=== PATIENT | female | born 1970 | race Hispanic/Latino ===

== ENCOUNTER → 2016-09-28 | Outpatient (CLI) | payer OTHER ==
[~2016-09-28] MED LIST: /ESOM40CA OR; AMITRIPTYLINE PO; CRESTOR PO; FLEXARIL PO; IBUP80TA PO; LORATADINE PO; NAPR500T2 PO; ROBA500T PO; TRAM50TA2 OR; TYLE325T5 PO; XANAX PO; [UNRECOGNIZED DRUG - REMARK] INH; [UNRECOGNIZED DRUG - REMARK] PO
[2016-09-28 13:24] LABS: FREE T4 0.89 NG/DL (0.76-1.46)
== END ==
LOC: M LAB 12:07
PROVIDERS: ATTEND Obstetrics & Gynecology
DX: N95.8 Other specified menopausal and perimenopausal disorders (principal)

== ENCOUNTER 2016-10-05 10:27 | Emergency (ER) | payer OTHER ==
[2016-10-05] MEDS ORDERED: ALBUTEROL SULFATE 2.5 MG/0.5 ML INH NEB SOLN As Ordered ONE (11:15)
--- NOTE | 2016-10-05 12:04 | REP ---
Chest two views HISTORY: Cough Comparison: 08/06/2016 The lungs are clear. The heart is normal in size. The pulmonary vasculature is normal in appearance. The bony structure is intact. IMPRESSION: No acute disease. Signed by Waylon Arteaga MD 10/05/2016 11:56 A
[2016-10-05] MEDS ORDERED: ALBUTEROL 90 MCG/ACT 8GM HFA INHALER As Ordered ONE (12:08)
--- NOTE | 2016-10-05 12:18 | EDDOCDS ---
Physician Documentation [facility] Name: Angélica Queen Age: 46 yrs Sex: Female : 1970 Arrival Date: 10/05/2016 Time: 10:27 Bed PR Private MD: Karen Feliciano M. Disposition: 10/05/16 12:07 Discharged to Home/Self Care. Impression: Unspecified asthma with (acute) exacerbation, Cough. - Condition is Stable. - Discharge Instructions: Asthma, Adult, Cough, Adult, [id number]. - Prescriptions for Prednisone 20 mg Oral Tablet - take 2 tablet by ORAL route once daily for 5 days; 10 tablet. Albuterol Sulfate 90 mcg/actuation Inhalation HFA Aerosol Inhaler - inhale 2 puff by INHALATION route every 4 hours As needed; 1 Inhaler. - Medication Reconciliation, Local Pharmacy Hours form. - Follow up: Emergency Department; When: As needed; Reason: Worsening of conditions. Follow up: Private Physician; When: 2 - 3 days; Reason: Wound/Symptom Recheck, Recheck today's complaints, Continuance of care. - Problem is new. - Symptoms have improved. Historical: - Allergies: Clindamycin (Rash); Erythromycin (Rash); PENICILLINS (Rash); - Home Meds: 1. Ventolin Rotahaler/Rotacaps 200 mcg Inhl CpDv 200 mcg daily ran out 2. Claritin 10 mg Oral tab 1 tab once daily hasnt taken in 2 months - PMHx: Asthma; Chronic Back pain; Chronic Neck Pain; - PSHx: Hysterectomy; left breast biopsy; - Social history: Smoking status: Patient uses tobacco products, current every day smoker. No barriers to communication noted, The patient speaks fluent Belgian, Speaks appropriately for age. - Family history: Not pertinent. - : The pt / caregiver states he / she is not on anticoagulants. Home medication list is obtained from the patient. - Exposure Risk Screening:: None identified. 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 0 in. (152.40 cm) (R); Pain 0/10; 12:10 BP 117 / 76; Pulse 88; Resp 18; Temp 97.0(O); Pulse Ox 97% on R/A; Pain 0/10; jb5 10:28 Body Mass Index 30.47 (70.76 kg, 152.40 cm) ct3 MDM: 11:01 Albuterol 2.5 mg Nebulizer once ordered. dt4 11:01 Call Respiratory ordered. dt4 11:02 Chest, 2 View (pa\E\lat) Ordered. EDMS 11:08 Call Respiratory complete. jf3 11:47 Financial registration complete. mm15 11:49 [facility] Payment Agreement was scanned into [employer] and attached to record. mm15 12:02 Ventolin Inhaler 2 puffs Inhalation once; GIVE TO PT TO TAKE HOME, THANK YOU. ordered. dt4 Administered Medications: 11:21 Drug: Albuterol 2.5 mg [albuterol sulfate 2.5 mg/0.5 mL solution for nebulization (0.5 cs15 mL)] Route: Nebulizer; 11:30 Follow up: Response: Nebulizer completed cs15 12:14 Drug: Ventolin 2 puffs [Ventolin HFA 90 mcg/actuation aerosol inhaler (2 puffs)] Route: dy Inhalation; Signatures: Dispatcher [employer] Annie Combs, RN Rhys Miramontes RN RN dy McGrath, Marlynn mm15 Wendy Santos, PAEllieC PA-C dt4 Alessandro Sheth RN RN jf3 Quan Montilla RT cs15 The chart was reviewed and I authenticate all verbal orders and agree with the evaluation and treatment provided.Attachments: 11:49 [facility] Payment Agreement mm15 MTDD
--- NOTE | 2016-10-05 12:18 | EDDOCDS ---
Nurse's Notes [facility] Name: Angélica Queen Age: 46 yrs Sex: Female : 1970 Arrival Date: 10/05/2016 Time: 10:27 Bed PR Private MD: Karen Feliciano M. Diagnosis: Unspecified asthma with (acute) exacerbation;Cough Presentation: 10/05 10:34 Presenting complaint: Patient states: coughing and difficulty breathing for 3-4 days. srm hx of asthma. Adult Sepsis Screening: The patient does not have new or worsening altered mentation. Patient's respiratory rate is less than 22. Systolic blood pressure is greater than 100. Patient has a qSOFA score of 0- Negative Sepsis Screen. Suicide/Homicide risk assessment- the patient denies having any suicidal and/or homicidal ideations and does not present with any other emotional, behavioral or mental health complaints. 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 Transition of care: patient was not received from another setting of care. 10:34 Acuity: ILANA Level 4 srm 10:34 Method Of Arrival: Wheelchair srm Triage Assessment: 10:35 General: Appears in no apparent distress, Behavior is appropriate for age, cooperative. srm Pain: Denies pain. HIV screening NA for this visit Offered previously. 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 Ventolin Rotahaler/Rotacaps 200 mcg Inhl CpDv 200 mcg daily ran out 2. Claritin 10 mg Oral tab 1 tab once daily hasnt taken in 2 months - PMHx: Asthma; Chronic Back pain; Chronic Neck Pain; - PSHx: Hysterectomy; left breast biopsy; - Social history: Smoking status: Patient uses tobacco products, current every day smoker. No barriers to communication noted, The patient speaks fluent Paraguayan, Speaks appropriately for age. - Family history: Not pertinent. - : The pt / caregiver states he / she is not on anticoagulants. Home medication list is obtained from the patient. - Exposure Risk Screening:: None identified. Screenin:14 Screening information is obtained from the patient. Fall risk: No risks identified. dy Assistance ADL's: requires no assistance with activities of daily living. Abuse/DV Screen: The patient / caregiver reports he/she is: not in a situation that causes fear, pain or injury. Nutritional screening: No deficits noted. Advance Directives: There is no active DNR order. home support is adequate. Assessment: 12:15 General: Appears in no apparent distress, Behavior is appropriate for age, cooperative. dy Pain: Denies pain. Respiratory: Airway is patent Respiratory effort is even, unlabored, Breath sounds are clear bilaterally. Derm: Skin is pink, warm & dry. Vital Signs: 10:28 BP 152 / 91; Pulse 102; Resp 18; Temp 97.7(O); Pulse Ox 98% on R/A; Weight 70.76 kg ct3 (R); Height 5 ft. 0 in. (152.40 cm) (R); Pain 0/10; 12:10 BP 117 / 76; Pulse 88; Resp 18; Temp 97.0(O); Pulse Ox 97% on R/A; Pain 0/10; jb5 10:28 Body Mass Index 30.47 (70.76 kg, 152.40 cm) ct3 Vitals: 10:28 Log In Time: October 05, 2016 at 10:25. ct3 ED Course: 10:28 Patient visited by Emelina Jones PCA. ct3 10:28 Karen Feliciano is Private Physician. ct3 10:28 Patient moved to Waiting ct3 10:30 Patient moved to Pre RCE ct3 10:34 Triage Initiated srm 10:37 Patient moved to Triage 3 srm 10:57 Wendy Santos [facility]-C [facility]. dt4 10:57 Em Griffith MD is Attending Physician. dt4 10:57 Patient visited by Wendy Santos PA-C. dt4 11:06 Patient moved to PR2 / 26 jf3 11:07 Patient moved to PR1 / 25 jf3 11:47 Patient visited by Salima Cabezas PCA. jb5 11:49 [facility] [place] Agreement was scanned into [employer] and attached to record. mm15 12:10 Patient visited by Salima Cabezas PCA. jb5 12:10 Patient visited by Salima Cabezas PCA. jb5 12:11 Chest, 2 View (pa\E\lat) Returned. EDMS 12:15 The patient / caregiver is instructed regarding the plan of care and ED course. Patient dy has correct armband on for positive identification. 12:15 No IV's were initiated during this patient's visit. No procedures done that require dy assistance. Administered Medications: 11:21 Drug: Albuterol 2.5 mg [albuterol sulfate 2.5 mg/0.5 mL solution for nebulization (0.5 cs15 mL)] Route: Nebulizer; 11:30 Follow up: Response: Nebulizer completed cs15 12:14 Drug: Ventolin 2 puffs [Ventolin HFA 90 mcg/actuation aerosol inhaler (2 puffs)] Route: dy Inhalation; RT: 11:21 Initial Med Neb Given as ordered. Respiratory: Respiratory effort is unlabored, cs15 Respiratory pattern is regular Breath sounds are diminished bilaterally. Reports That she ran out of her ventolin this morning but got a dose which helped minimally. She also stated that her SOB has been going on for a few days now and it started when she started choking on some food. 11:31 Respiratory: cs15 Order Results: Radiology Order: Chest, 2 View (pa\E\lat) Test: Chest, 2 View (pa\E\lat) REASON FOR EXAMINATION: Cough;Shortness of Breath; Chest two views; ; HISTORY: Cough; ; Comparison: 08/06/2016; ; The lungs are clear. The heart is normal in size. The pulmonary vasculature is; normal in appearance. The bony structure is intact.; ; IMPRESSION: No acute disease.; ; ; Signed by; Waylon Arteaga MD 10/05/2016 11:56 A; Outcome: 12:07 Discharge ordered by Provider. dt4 12:15 Discharge Assessment: patient administered narcotics - no. The following High Risk dy Discharge criteria are identified: None. Discharged to home ambulatory. Condition: stable. Discharge instructions given to patient, Instructed on discharge instructions, follow up and referral plans. medication usage, Demonstrated understanding of instructions, medications, Pt was receptive of discharge instructions/ teaching. Prescriptions given X 2. No special radiology studies were completed. Property sent home with patient. 12:17 Patient left the ED. dy Signatures: Dispatcher [employer] EDMS Annie Lacy RN RN srm Youngs, David, RN RN dy Baker, Janet, BULKING MACHINE OPERATOR BULKING MACHINE OPERATOR jb5 Emelina Jones, BULKING MACHINE OPERATOR BULKING MACHINE OPERATOR ct3 Tereso Marinelli mm15 Wendy Santos, ANA MARÍA PA-C dt4 Quan Montilla,RT RT cs15 Alessandro Sheth,RN RN jf3 MTDD
--- NOTE | 2016-10-07 13:18 | EDDOCDS ---
Nurse's Notes [facility] Name: Angélica Queen Age: 46 yrs Sex: Female : 1970 Arrival Date: 10/05/2016 Time: 10:27 Bed PR Private MD: Karen Feliciano M. Diagnosis: Unspecified asthma with (acute) exacerbation;Cough Presentation: 10/05 10:34 Presenting complaint: Patient states: coughing and difficulty breathing for 3-4 days. srm hx of asthma. Adult Sepsis Screening: The patient does not have new or worsening altered mentation. Patient's respiratory rate is less than 22. Systolic blood pressure is greater than 100. Patient has a qSOFA score of 0- Negative Sepsis Screen. Suicide/Homicide risk assessment- the patient denies having any suicidal and/or homicidal ideations and does not present with any other emotional, behavioral or mental health complaints. 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 Transition of care: patient was not received from another setting of care. 10:34 Acuity: ILANA Level 4 srm 10:34 Method Of Arrival: Wheelchair srm Triage Assessment: 10:35 General: Appears in no apparent distress, Behavior is appropriate for age, cooperative. srm Pain: Denies pain. HIV screening NA for this visit Offered previously. 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 Ventolin Rotahaler/Rotacaps 200 mcg Inhl CpDv 200 mcg daily ran out 2. Claritin 10 mg Oral tab 1 tab once daily hasnt taken in 2 months - PMHx: Asthma; Chronic Back pain; Chronic Neck Pain; - PSHx: Hysterectomy; left breast biopsy; - Social history: Smoking status: Patient uses tobacco products, current every day smoker. No barriers to communication noted, The patient speaks fluent Taiwanese, Speaks appropriately for age. - Family history: Not pertinent. - : The pt / caregiver states he / she is not on anticoagulants. Home medication list is obtained from the patient. - Exposure Risk Screening:: None identified. Screenin:14 Screening information is obtained from the patient. Fall risk: No risks identified. dy Assistance ADL's: requires no assistance with activities of daily living. Abuse/DV Screen: The patient / caregiver reports he/she is: not in a situation that causes fear, pain or injury. Nutritional screening: No deficits noted. Advance Directives: There is no active DNR order. home support is adequate. Assessment: 12:15 General: Appears in no apparent distress, Behavior is appropriate for age, cooperative. dy Pain: Denies pain. Respiratory: Airway is patent Respiratory effort is even, unlabored, Breath sounds are clear bilaterally. Derm: Skin is pink, warm & dry. Vital Signs: 10:28 BP 152 / 91; Pulse 102; Resp 18; Temp 97.7(O); Pulse Ox 98% on R/A; Weight 70.76 kg ct3 (R); Height 5 ft. 0 in. (152.40 cm) (R); Pain 0/10; 12:10 BP 117 / 76; Pulse 88; Resp 18; Temp 97.0(O); Pulse Ox 97% on R/A; Pain 0/10; jb5 10:28 Body Mass Index 30.47 (70.76 kg, 152.40 cm) ct3 Vitals: 10:28 Log In Time: October 05, 2016 at 10:25. ct3 ED Course: 10:28 Patient visited by Emelina Jones PCA. ct3 10:28 Karen Feliciano is Private Physician. ct3 10:28 Patient moved to Waiting ct3 10:30 Patient moved to Pre RCE ct3 10:34 Triage Initiated srm 10:37 Patient moved to Triage 3 srm 10:57 Wendy Santos [facility]-C [facility]. dt4 10:57 Em Griffith MD is Attending Physician. dt4 10:57 Patient visited by Wendy Santos PA-C. dt4 11:06 Patient moved to PR2 / 26 jf3 11:07 Patient moved to PR1 / 25 jf3 11:47 Patient visited by Salima Cabezas PCA. jb5 11:49 [facility] Payment Agreement was scanned into [employer] and attached to record. mm15 12:10 Patient visited by Salima Cabezas PCA. jb5 12:10 Patient visited by Salima Cabezas PCA. jb5 12:11 Chest, 2 View (pa\E\lat) Returned. EDMS 12:15 The patient / caregiver is instructed regarding the plan of care and ED course. Patient dy has correct armband on for positive identification. 12:15 No IV's were initiated during this patient's visit. No procedures done that require dy assistance. 14:13 T-Sheet-- Draft Copy was scanned into [employer] and attached to record. gb 10/06 20:26 T-Sheet-- Draft Copy was scanned into [employer] and attached to record. klr Administered Medications: 10/05 11:21 Drug: Albuterol 2.5 mg [albuterol sulfate 2.5 mg/0.5 mL solution for nebulization (0.5 cs15 mL)] Route: Nebulizer; 11:30 Follow up: Response: Nebulizer completed cs15 12:14 Drug: Ventolin 2 puffs [Ventolin HFA 90 mcg/actuation aerosol inhaler (2 puffs)] Route: dy Inhalation; RT: 11:21 Initial Med Neb Given as ordered. Respiratory: Respiratory effort is unlabored, cs15 Respiratory pattern is regular Breath sounds are diminished bilaterally. Reports That she ran out of her ventolin this morning but got a dose which helped minimally. She also stated that her SOB has been going on for a few days now and it started when she started choking on some food. 11:31 Respiratory: cs15 Order Results: Radiology Order: Chest, 2 View (pa\E\lat) Test: Chest, 2 View (pa\E\lat) REASON FOR EXAMINATION: Cough;Shortness of Breath; Chest two views; ; HISTORY: Cough; ; Comparison: 08/06/2016; ; The lungs are clear. The heart is normal in size. The pulmonary vasculature is; normal in appearance. The bony structure is intact.; ; IMPRESSION: No acute disease.; ; ; Signed by; Waylon Arteaga MD 10/05/2016 11:56 A; Outcome: 12:07 Discharge ordered by Provider. dt4 12:15 Discharge Assessment: patient administered narcotics - no. The following High Risk dy Discharge criteria are identified: None. Discharged to home ambulatory. Condition: stable. Discharge instructions given to patient, Instructed on discharge instructions, follow up and referral plans. medication usage, Demonstrated understanding of instructions, medications, Pt was receptive of discharge instructions/ teaching. Prescriptions given X 2. No special radiology studies were completed. Property sent home with patient. 12:17 Patient left the ED. dy Signatures: Dispatcher MedHost EDMS Annie Lacy, RN RN srm Gita, Christa, Reg Reg Rhys Zhu, RN RN Salima Aguero, PHOTOGRAPHY TEACHER PHOTOGRAPHY TEACHER jb5 Jones, Emelina, PHOTOGRAPHY TEACHER PHOTOGRAPHY TEACHER ct3 Tereso Marinelli mm15 Wendy Santos, PA-C PA-C dt4 Quan Montilla,RT RT cs15 Alessandro Sheth,LALA RN jf3 Humera Bolton Chart Complete MTDD
--- NOTE | 2016-10-07 13:18 | EDDOCDS ---
Physician Documentation [facility] Name: Angélica Queen Age: 46 yrs Sex: Female : 1970 Arrival Date: 10/05/2016 Time: 10:27 Bed PR Private MD: Karen Feliciano M. Disposition: 10/05/16 12:07 Discharged to Home/Self Care. Impression: Unspecified asthma with (acute) exacerbation, Cough. - Condition is Stable. - Discharge Instructions: Asthma, Adult, Cough, Adult, [id number]. - Prescriptions for Prednisone 20 mg Oral Tablet - take 2 tablet by ORAL route once daily for 5 days; 10 tablet. Albuterol Sulfate 90 mcg/actuation Inhalation HFA Aerosol Inhaler - inhale 2 puff by INHALATION route every 4 hours As needed; 1 Inhaler. - Medication Reconciliation, Local Pharmacy Hours form. - Follow up: Emergency Department; When: As needed; Reason: Worsening of conditions. Follow up: Private Physician; When: 2 - 3 days; Reason: Wound/Symptom Recheck, Recheck today's complaints, Continuance of care. - Problem is new. - Symptoms have improved. Historical: - Allergies: Clindamycin (Rash); Erythromycin (Rash); PENICILLINS (Rash); - Home Meds: 1. Ventolin Rotahaler/Rotacaps 200 mcg Inhl CpDv 200 mcg daily ran out 2. Claritin 10 mg Oral tab 1 tab once daily hasnt taken in 2 months - PMHx: Asthma; Chronic Back pain; Chronic Neck Pain; - PSHx: Hysterectomy; left breast biopsy; - Social history: Smoking status: Patient uses tobacco products, current every day smoker. No barriers to communication noted, The patient speaks fluent Hungarian, Speaks appropriately for age. - Family history: Not pertinent. - : The pt / caregiver states he / she is not on anticoagulants. Home medication list is obtained from the patient. - Exposure Risk Screening:: None identified. 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 0 in. (152.40 cm) (R); Pain 0/10; 12:10 BP 117 / 76; Pulse 88; Resp 18; Temp 97.0(O); Pulse Ox 97% on R/A; Pain 0/10; jb5 10:28 Body Mass Index 30.47 (70.76 kg, 152.40 cm) ct3 MDM: 11:01 Albuterol 2.5 mg Nebulizer once ordered. dt4 11:01 Call Respiratory ordered. dt4 11:02 Chest, 2 View (pa\E\lat) Ordered. EDMS 11:08 Call Respiratory complete. jf3 11:47 Financial registration complete. mm15 11:49 [facility] Payment Agreement was scanned into [employer] and attached to record. mm15 12:02 Ventolin Inhaler 2 puffs Inhalation once; GIVE TO PT TO TAKE HOME, THANK YOU. ordered. dt4 14:13 T-Sheet-- Draft Copy was scanned into [employer] and attached to record. gb 10/06 20:26 T-Sheet-- Draft Copy was scanned into [employer] and attached to record. klr Administered Medications: 10/05 11:21 Drug: Albuterol 2.5 mg [albuterol sulfate 2.5 mg/0.5 mL solution for nebulization (0.5 cs15 mL)] Route: Nebulizer; 11:30 Follow up: Response: Nebulizer completed cs15 12:14 Drug: Ventolin 2 puffs [Ventolin HFA 90 mcg/actuation aerosol inhaler (2 puffs)] Route: dy Inhalation; Signatures: Dispatcher MedHost EDMS Annie Lacy, RN LALA [facility] Christa Pelayo, Reg Reg Rhys Moreno RN RN dy McGrath, Marlynn mm15 Wendy Santos PA-C PA-C dt4 Alessandro Sheth RN RN jfHumera Suarezr Quan Montilla RT cs15 The chart was reviewed and I authenticate all verbal orders and agree with the evaluation and treatment provided.Attachments: 11:49 [facility] Payment Agreement mm15 14:13 T-Sheet-- Draft Copy gb Chart Complete MTDD
--- NOTE | 2016-10-07 13:18 | EDDOCDS ---
Physician Documentation [facility] Name: Angélica Queen Age: 46 yrs Sex: Female : 1970 Arrival Date: 10/05/2016 Time: 10:27 Bed PR Private MD: Karen Feliciano M. Disposition: 10/05/16 12:07 Discharged to Home/Self Care. Impression: Unspecified asthma with (acute) exacerbation, Cough. - Condition is Stable. - Discharge Instructions: Asthma, Adult, Cough, Adult, [id number]. - Prescriptions for Prednisone 20 mg Oral Tablet - take 2 tablet by ORAL route once daily for 5 days; 10 tablet. Albuterol Sulfate 90 mcg/actuation Inhalation HFA Aerosol Inhaler - inhale 2 puff by INHALATION route every 4 hours As needed; 1 Inhaler. - Medication Reconciliation, Local Pharmacy Hours form. - Follow up: Emergency Department; When: As needed; Reason: Worsening of conditions. Follow up: Private Physician; When: 2 - 3 days; Reason: Wound/Symptom Recheck, Recheck today's complaints, Continuance of care. - Problem is new. - Symptoms have improved. Historical: - Allergies: Clindamycin (Rash); Erythromycin (Rash); PENICILLINS (Rash); - Home Meds: 1. Ventolin Rotahaler/Rotacaps 200 mcg Inhl CpDv 200 mcg daily ran out 2. Claritin 10 mg Oral tab 1 tab once daily hasnt taken in 2 months - PMHx: Asthma; Chronic Back pain; Chronic Neck Pain; - PSHx: Hysterectomy; left breast biopsy; - Social history: Smoking status: Patient uses tobacco products, current every day smoker. No barriers to communication noted, The patient speaks fluent Haitian, Speaks appropriately for age. - Family history: Not pertinent. - : The pt / caregiver states he / she is not on anticoagulants. Home medication list is obtained from the patient. - Exposure Risk Screening:: None identified. 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 0 in. (152.40 cm) (R); Pain 0/10; 12:10 BP 117 / 76; Pulse 88; Resp 18; Temp 97.0(O); Pulse Ox 97% on R/A; Pain 0/10; jb5 10:28 Body Mass Index 30.47 (70.76 kg, 152.40 cm) ct3 MDM: 11:01 Albuterol 2.5 mg Nebulizer once ordered. dt4 11:01 Call Respiratory ordered. dt4 11:02 Chest, 2 View (pa\E\lat) Ordered. EDMS 11:08 Call Respiratory complete. jf3 11:47 Financial registration complete. mm15 11:49 [facility] Payment Agreement was scanned into [employer] and attached to record. mm15 12:02 Ventolin Inhaler 2 puffs Inhalation once; GIVE TO PT TO TAKE HOME, THANK YOU. ordered. dt4 14:13 T-Sheet-- Draft Copy was scanned into [employer] and attached to record. gb 10/06 20:26 T-Sheet-- Draft Copy was scanned into [employer] and attached to record. klr Administered Medications: 10/05 11:21 Drug: Albuterol 2.5 mg [albuterol sulfate 2.5 mg/0.5 mL solution for nebulization (0.5 cs15 mL)] Route: Nebulizer; 11:30 Follow up: Response: Nebulizer completed cs15 12:14 Drug: Ventolin 2 puffs [Ventolin HFA 90 mcg/actuation aerosol inhaler (2 puffs)] Route: dy Inhalation; Signatures: Dispatcher MedHost EDMS Annie Lacy, RN LALA [facility] Christa Pelayo, Reg Reg Rhys Moreno RN RN dy McGrath, Marlynn mm15 Wendy Santos PA-C PA-C dt4 Alessandro Sheth RN RN jfHumera Suarezr Quan Montilla RT cs15 The chart was reviewed and I authenticate all verbal orders and agree with the evaluation and treatment provided.Attachments: 11:49 [facility] Payment Agreement mm15 14:13 T-Sheet-- Draft Copy gb Chart Complete MTDD
== END 2016-10-05 12:17 | disposition home or self-care (01) ==
LOC: M ED 10:27
DX: J45.901 Unspecified asthma with (acute) exacerbation (principal); R05 Cough; M54.2 Cervicalgia; F17.210 Nicotine dependence, cigarettes, uncomplicated; Z79.899 Other long term (current) drug therapy; Z88.1 Allergy status to other antibiotic agents; Z88.0 Allergy status to penicillin

== ENCOUNTER 2016-10-06 14:13 | Emergency (ER) | payer OTHER ==
[2016-10-06 15:00] LABS: BASO # 0.1 K/mm3 (0.0-0.2); EOS % 0.3 % (0.0-3.0); LARGE UNSTAINED CELL # 0.1 K/mm3 (0.0-0.4); LARGE UNSTAINED CELL % 0.8 % (0.0-4.0); LYMPH # 1.7 K/mm3 (1.5-4.5); LYMPH % 13.2 % (24.0-44.0); MEAN CORPUSCULAR HEMOGLOBIN 30.7 pg (27.0-33.0); MEAN CORPUSCULAR HGB CONC 31.6 g/dl (32.0-36.5); MEAN CORPUSCULAR VOLUME 97.1 fl (80.0-96.0); MONO # 0.3 K/mm3 (0.0-0.8); MONO % 2.3 % (0.0-5.0); NEUTROPHILS # 10.2 K/mm3 (1.8-7.7); NEUTROPHILS % 82.4 % (36.0-66.0); PLATELET COUNT, AUTOMATED 394 k/mm3 (150-450); RED CELL DISTRIBUTION WIDTH 13.3 % (11.5-14.5); WHITE BLOOD COUNT 12.4 K/mm3 (4.0-10.0)
[2016-10-06] MEDS ORDERED: KETOROLAC 30 MG/ML VIAL (J1885) As Ordered ONE (15:07)
--- NOTE | 2016-10-06 15:14 | REP ---
Clinical: Chest pain. Comparison: 10/05/2016 . Findings: The mediastinum and cardiac silhouette are stable and within normal limits for portable technique. The lung ames are clear without acute consolidation, effusion, or pneumothorax. Skeletal structures are intact. Impression: Normal portable chest x-ray Signed by Cristofer Jean MD 10/06/2016 03:06 P
[2016-10-06 15:17] LABS: ANION GAP 8 MEQ/L (8-16); BLOOD UREA NITROGEN 13 MG/DL (7-18); CALCIUM LEVEL 8.9 MG/DL (8.5-10.1); CARBON DIOXIDE LEVEL 29 MEQ/L (21-32); CHLORIDE LEVEL 105 MEQ/L (98-107); CREATININE FOR GFR 0.96 MG/DL (0.55-1.02); GLOMERULAR FILTRATION RATE > 60.0 (>58); GLUCOSE, FASTING 150 MG/DL (70-105); POTASSIUM SERUM 4.4 MEQ/L (3.5-5.1); SODIUM LEVEL 142 MEQ/L (136-145)
--- NOTE | 2016-10-06 15:55 | EDDOCDS ---
Nurse's Notes [facility] Name: Angélica Queen Age: 46 yrs Sex: Female : 1970 Arrival Date: 10/06/2016 Time: 14:13 Bed 18 Private MD: Karen Feliciano M. Diagnosis: Other chest pain-chest wall pain probable costocondritis Presentation: 10/06 14:19 Presenting complaint: Patient states: that she was seen here yesterday for chest pain ms18 and given medications. Pt states that the chest pain is still present and comes and goes. Aspirin was not taken prior to arrival. Adult Sepsis Screening: The patient does not have new or worsening altered mentation. Patient's respiratory rate is less than 22. Systolic blood pressure is greater than 100. Patient has a qSOFA score of 0- Negative Sepsis Screen. Suicide/Homicide risk assessment- the patient denies having any suicidal and/or homicidal ideations and does not present with any other emotional, behavioral or mental health complaints. 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 Transition of care: patient was not received from another setting of care. 14:19 Acuity: ILANA Level 3 ms18 14:19 Method Of Arrival: Walkin/Carried/Asstd ms18 Triage Assessment: 14:23 General: Appears in no apparent distress, comfortable, Behavior is appropriate for age, ms18 cooperative. Pain: Location: mid-sternal area Pain currently is 6 out of 10 on a pain scale. HIV screening NA for this visit Offered previously. Neurological: Level of Consciousness is awake, alert, obeys commands, Oriented to person, place, time. Cardiovascular: Chest pain is described as diffuse, radiates Does not radiate. episodes are intermittent began a week ago. Respiratory: Airway is patent Respiratory effort is even, unlabored. Derm: Skin is pink, warm & dry. 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 Claritin 10 mg Oral tab 1 tab once daily hasnt taken in 2 months 2. Ventolin Rotahaler/Rotacaps 200 mcg Inhl CpDv 200 mcg daily ran out 3. prednisolone 5 mg Oral tab - PMHx: Chronic Back pain; Asthma; Chronic Neck Pain; - PSHx: Biopsy, Breast- Left; Hysterectomy; Cystectomy; - Social history: Smoking status: Patient uses tobacco products, current every day smoker. No barriers to communication noted, The patient speaks fluent Burmese. - Family history: No immediate family members are acutely ill. - : The pt / caregiver states he / she is not on anticoagulants. Home medication list is obtained from the patient. - Exposure Risk Screening:: None identified. Screenin:49 Screening information is obtained from the patient. Fall risk: No risks identified. po Assistance ADL's: requires no assistance with activities of daily living. Abuse/DV Screen: The patient / caregiver reports he/she is: not in a situation that causes fear, pain or injury. Nutritional screening: No deficits noted. Advance Directives: Currently, there is no health care proxy. There is no active DNR order. Further advance directive information is declined. home support is adequate. Assessment: 14:49 General: Appears in no apparent distress, comfortable, Behavior is appropriate for age, po cooperative, pleasant. Pain: Location: mid-sternal area Pain currently is 5 out of 10 on a pain scale. Quality of pain is described as sharp, Is intermittent. Neurological: Level of Consciousness is awake, alert, Oriented to person, place, time. Cardiovascular: Rhythm is sinus rhythm. Respiratory: Airway is patent Respiratory effort is even, unlabored, Breath sounds are clear bilaterally. Derm: Skin is intact, is healthy with good turgor, Skin is pink, warm & dry. Musculoskeletal: Tenderness present in mid-sternal area. 15:51 General: Appears in no apparent distress, comfortable, Behavior is appropriate for age, po cooperative, pleasant. Pain: Denies pain. Neurological: No deficits noted. Cardiovascular: Rhythm is sinus rhythm Chest pain is denied. Respiratory: Airway is patent Respiratory effort is even, unlabored, Breath sounds are clear bilaterally. GI: No deficits noted. Derm: Skin is intact, is healthy with good turgor, Skin is pink, warm & dry. Vital Signs: 14:15 BP 116 / 69; Pulse 93; Resp 18; Temp 97.8(O); Pulse Ox 97% on R/A; Weight 70.76 kg (R); elp Height 5 ft. 0 in. (152.40 cm) (R); Pain 7/10; 14:44 BP 121 / 73 (auto/); po 14:45 Pulse 82 MON; Pulse Ox 94% ; po 14:59 BP 116 / 69 (auto/); po 15:00 Pulse 82 MON; Pulse Ox 94% ; po 15:14 BP 120 / 69 (auto/); po 15:15 Pulse 82 MON; Resp 14; Pulse Ox 94% on R/A; Pain 4/10; po 15:29 BP 112 / 64 (auto/); po 15:30 Pulse 84 MON; Pulse Ox 95% ; po 15:44 BP 117 / 63 (auto/); po 15:45 Pulse 82 MON; Resp 16; Temp 98(O); Pulse Ox 95% on R/A; Pain 0/10; po 14:15 Body Mass Index 30.47 (70.76 kg, 152.40 cm) elp Vitals: 14:15 Log In Time: October 06, 2016 at 14:13. RN notified that patient meets Red Flag elp criteria. ED Course: 14:15 Patient visited by Jeri Vizcaino PCA. elp 14:15 Karen Feliciano is Private Physician. elp 14:15 Patient moved to Waiting elp 14:16 Patient visited by Jeri Vizcaino PCA. elp 14:18 Vicente Stapleton,RN is Primary Nurse. elp 14:18 Patient moved to 18 elp 14:19 Patient visited by Liliana Watkins RN. ms18 14:21 Triage Initiated ms18 14:27 Em Griffith MD is Attending Physician. sd1 14:31 Patient visited by Ken Reilly PCA. jrd 14:31 EKG done. (by ED staff). Reviewed by Em Griffith MD. jrd 14:43 Patient visited by Em Griffith MD. sd1 14:49 The patient / caregiver is instructed regarding the plan of care and ED course. Placed po in gown. Bed in low position. Call light in reach. Side rails up X2. monitor tech on. Pulse ox on. NIBP on. 14:49 Basic Metabolic Profile Sent. po 14:49 CBC with Diff Sent. po 14:49 Cardiac Injury Profile Sent. po 14:49 Troponin Sent. po 14:49 Inserted saline lock: 20 gauge in left forearm. po 14:51 Patient visited by Vicente Stapleton RN. po 15:38 Karen Feliciano is Referral Physician. sd1 15:53 Discontinued IV lock intact, bleeding controlled, pressure dressing applied, No po redness/swelling at site. No procedures done that require assistance. 15:53 portable chest Returned. EDMS 15:54 Patient visited by Vicente Stapleton RN. po Administered Medications: 15:13 Drug: ketorolac 30 mg [ketorolac 30 mg/mL (1 mL) injection solution (1 mL)] Route: IVP; po Site: left forearm; 15:39 Follow up: Response: Pain is resolved po Order Results: Lab Order: Basic Metabolic Profile; SPEC'M 10/06/16 14:43 Test: GLUCOSE, FASTING; Value: 150; Range: 70-105; Abnormal: Above high normal; Units: MG/DL; Status: F Test: BLOOD UREA NITROGEN; Value: 13; Range: 7-18; Units: MG/DL; Status: F Test: CREATININE FOR GFR; Value: 0.96; Range: 0.55-1.02; Units: MG/DL; Status: F Test: GLOMERULAR FILTRATION RATE; Value: > 60.0; Range: >58; Status: F Test: SODIUM LEVEL; Value: 142; Range: 136-145; Units: MEQ/L; Status: F Test: POTASSIUM SERUM; Value: 4.4; Range: 3.5-5.1; Units: MEQ/L; Status: F Test: CHLORIDE LEVEL; Value: 105; Range: 98-107; Units: MEQ/L; Status: F Test: CARBON DIOXIDE LEVEL; Value: 29; Range: 21-32; Units: MEQ/L; Status: F Test: ANION GAP; Value: 8; Range: 8-16; Units: MEQ/L; Status: F Test: CALCIUM LEVEL; Value: 8.9; Range: 8.5-10.1; Units: MG/DL; Status: F Test Note: ; Units are mL/min/1.73 m2 Chronic Kidney Disease Staging per NKF: Stage I & II GFR >=60 Normal to Mildly Decreased Stage III GFR 30-59 Moderately Decreased Stage IV GFR 15-29 Severely Decreased Stage V GFR <15 Very Little GFR Left ESRD GFR <15 on CONTINUOUS IMPROVEMENT ENGINEER Lab Order: CBC with Diff; SPEC'M 10/06/16 14:43 Test: WHITE BLOOD COUNT; Value: 12.4; Range: 4.0-10.0; Abnormal: Above high normal; Units: K/mm3; Status: F Test: RED BLOOD COUNT; Value: 4.85; Range: 4.00-5.40; Units: M/mm3; Status: F Test: HEMOGLOBIN; Value: 14.9; Range: 12.0-16.0; Units: g/dl; Status: F Test: HEMATOCRIT; Value: 47.1; Range: 36.0-47.0; Abnormal: Above high normal; Units: %; Status: F Test: MEAN CORPUSCULAR VOLUME; Value: 97.1; Range: 80.0-96.0; Abnormal: Above high normal; Units: fl; Status: F Test: MEAN CORPUSCULAR HEMOGLOBIN; Value: 30.7; Range: 27.0-33.0; Units: pg; Status: F Test: MEAN CORPUSCULAR HGB CONC; Value: 31.6; Range: 32.0-36.5; Abnormal: Below low normal; Units: g/dl; Status: F Test: RED CELL DISTRIBUTION WIDTH; Value: 13.3; Range: 11.5-14.5; Units: %; Status: F Test: PLATELET COUNT, AUTOMATED; Value: 394; Range: 150-450; Units: k/mm3; Status: F Test: NEUTROPHILS %; Value: 82.4; Range: 36.0-66.0; Abnormal: Above high normal; Units: %; Status: F Test: LYMPH %; Value: 13.2; Range: 24.0-44.0; Abnormal: Below low normal; Units: %; Status: F Test: MONO %; Value: 2.3; Range: 0.0-5.0; Units: %; Status: F Test: EOS %; Value: 0.3; Range: 0.0-3.0; Units: %; Status: F Test: BASO %; Value: 1.0; Range: 0.0-1.0; Units: %; Status: F Test: LARGE UNSTAINED CELL %; Value: 0.8; Range: 0.0-4.0; Units: %; Status: F Test: NEUTROPHILS #; Value: 10.2; Range: 1.8-7.7; Abnormal: Above high normal; Units: K/mm3; Status: F Test: LYMPH #; Value: 1.7; Range: 1.5-4.5; Units: K/mm3; Status: F Test: MONO #; Value: 0.3; Range: 0.0-0.8; Units: K/mm3; Status: F Test: EOS #; Value: 0.0; Range: 0.0-0.50; Units: K/mm3; Status: F Test: BASO #; Value: 0.1; Range: 0.0-0.2; Units: K/mm3; Status: F Test: LARGE UNSTAINED CELL #; Value: 0.1; Range: 0.0-0.4; Units: K/mm3; Status: F Lab Order: Cardiac Injury Profile; SPEC'M 10/06/16 14:43 Test: CPK CREATINE PHOSPHOKINASE; Value: 110; Range: 26-192; Units: U/L; Status: F Test: CK-MB VALUE MASS; Value: 1.4; Range: 0.0-3.6; Units: NG/ML; Status: F Test: MB/CK RELATIVE INDEX; Value: 1.27; Range: < OR =4; Status: F Test Note: ; DIAGNOSIS CRITERIA MMB ng/ml Relative Index (RI) NON-AMI < or = 5 N/A HUANG ZONE > 5 < or = 4 AMI > 5 > 4 Lab Order: Troponin; SPEC'M 10/06/16 14:43 Test: TROPONIN I; Value: < 0.02; Range: < 0.10; Units: NG/ML; Status: F Test Note: ; Troponin I Reference Interval for [employer] LOCI: 99th Percentile= 0.00-0.045 ng/ml Risk Stratification: <= 0.10 ng/ml Decreased Risk for Adverse Clinical Events. 0.10-1.50 ng/ml Increased Risk for Adverse Clinical Events. Evaluation of additional criterion and/or repeat testing in 2-6 hours is suggested to rule out myocardial damage. >= 1.50 ng/ml Indicative of Myocardial Injury. Radiology Order: portable chest Test: portable chest REASON FOR EXAMINATION: Chest Pain; Clinical: Chest pain.; ; Comparison: 10/05/2016 .; ; Findings:; The mediastinum and cardiac silhouette are stable and within normal limits for; portable technique. The lung ames are clear without acute consolidation,; effusion, or pneumothorax. Skeletal structures are intact.; ; Impression:; Normal portable chest x-ray; ; ; Signed by; Cristofer Jean MD 10/06/2016 03:06 P; Outcome: 15:38 Discharge ordered by Provider. sd1 15:53 Discharge Assessment: patient administered narcotics - no. The following High Risk po Discharge criteria are identified: None. Discharged to home ambulatory. Condition: improved. Discharge instructions given to patient, Instructed on discharge instructions, follow up and referral plans. medication usage, Demonstrated understanding of instructions, medications, Pt was receptive of discharge instructions/ teaching. Prescriptions given X 2. No special radiology studies were completed. Property sent home with patient. 15:54 Patient left the ED. po Signatures: Dispatcher [employer] EDMS Em Griffith MD MD sd1 Vicente StapletonRN RN po Jeri Vizcaino, APPLIANCES SAMPLE MAKER APPLIANCES SAMPLE MAKER Liliana Ratliff RN RN ms18 Ken Reilly, APPLIANCES SAMPLE MAKER APPLIANCES SAMPLE MAKER jrd MTDD
--- NOTE | 2016-10-06 15:55 | EDDOCDS ---
Physician Documentation [facility] Name: Angélica Queen Age: 46 yrs Sex: Female : 1970 Arrival Date: 10/06/2016 Time: 14:13 Bed 18 Private MD: Karen Feliciano M. Disposition: 10/06/16 15:38 Discharged to Home/Self Care. Impression: Other chest pain - chest wall pain probable costocondritis. - Condition is Stable. - Discharge Instructions: Angina Pectoris, Nonspecific Chest Pain, Chest Wall Pain, Costochondritis. - Prescriptions for Naprosyn 500 mg Oral Tablet - take 1 tablet by ORAL route 2 times per day take with food; 30 tablet. Aspirin 81 mg - take 1 tablet by ORAL route once daily; 90 tablet. - Medication Reconciliation, Local Pharmacy Hours form. - Follow up: Karen Feliciano; When: 2 - 3 days. - Problem is new. - Symptoms have improved. Historical: - Allergies: Clindamycin (Rash); Erythromycin (Rash); PENICILLINS (Rash); - Home Meds: 1. Claritin 10 mg Oral tab 1 tab once daily hasnt taken in 2 months 2. Ventolin Rotahaler/Rotacaps 200 mcg Inhl CpDv 200 mcg daily ran out 3. prednisolone 5 mg Oral tab - PMHx: Chronic Back pain; Asthma; Chronic Neck Pain; - PSHx: Biopsy, Breast- Left; Hysterectomy; Cystectomy; - Social history: Smoking status: Patient uses tobacco products, current every day smoker. No barriers to communication noted, The patient speaks fluent Yoruba. - Family history: No immediate family members are acutely ill. - : The pt / caregiver states he / she is not on anticoagulants. Home medication list is obtained from the patient. - Exposure Risk Screening:: None identified. 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 0 in. (152.40 cm) (R); Pain 7/10; 14:44 BP 121 / 73 (auto/); po 14:45 Pulse 82 MON; Pulse Ox 94% ; po 14:59 BP 116 / 69 (auto/); po 15:00 Pulse 82 MON; Pulse Ox 94% ; po 15:14 BP 120 / 69 (auto/); po 15:15 Pulse 82 MON; Resp 14; Pulse Ox 94% on R/A; Pain 4/10; po 15:29 BP 112 / 64 (auto/); po 15:30 Pulse 84 MON; Pulse Ox 95% ; po 15:44 BP 117 / 63 (auto/); po 15:45 Pulse 82 MON; Resp 16; Temp 98(O); Pulse Ox 95% on R/A; Pain 0/10; po 14:15 Body Mass Index 30.47 (70.76 kg, 152.40 cm) elp MDM: 14:20 Manager Grocery/Pulse Ox/q 30 min VS ordered. sd1 14:20 IV Saline Lock ordered. sd1 14:20 Rhythm Strip to chart ordered. sd1 14:20 Undress patient appropriately for examination ordered. sd1 14:22 Basic Metabolic Profile Ordered. EDMS 14:22 CBC with Diff Ordered. EDMS 14:22 Cardiac Injury Profile Ordered. EDMS 14:22 Troponin Ordered. EDMS 14:22 portable chest Ordered. EDMS 14:22 ECG WITH READING ER PHYS+CARDIAG ordered. EDMS 15:02 ketorolac 30 mg IVP once ordered. sd1 15:30 Basic Metabolic Profile Reviewed. sd1 15:30 CBC with Diff Reviewed. sd1 15:30 Cardiac Injury Profile Reviewed. sd1 15:30 Troponin Reviewed. sd1 Administered Medications: 15:13 Drug: ketorolac 30 mg [ketorolac 30 mg/mL (1 mL) injection solution (1 mL)] Route: IVP; po Site: left forearm; 15:39 Follow up: Response: Pain is resolved po Signatures: Dispatcher [employer]Host EDEm Montes MD MD sd1 Vicente Stapleton,RN RN Liliana Victor RN RN ms18 MTDD
--- NOTE | 2016-10-07 07:28 | ECGEPIP ---
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
--- NOTE | 2016-10-08 16:55 | EDDOCDS ---
Physician Documentation [facility] Name: Angélica Queen Age: 46 yrs Sex: Female : 1970 Arrival Date: 10/06/2016 Time: 14:13 Bed 18 Private MD: Karen Feliciano M. Disposition: 10/06/16 15:38 Discharged to Home/Self Care. Impression: Other chest pain - chest wall pain probable costocondritis. - Condition is Stable. - Discharge Instructions: Angina Pectoris, Nonspecific Chest Pain, Chest Wall Pain, Costochondritis. - Prescriptions for Naprosyn 500 mg Oral Tablet - take 1 tablet by ORAL route 2 times per day take with food; 30 tablet. Aspirin 81 mg - take 1 tablet by ORAL route once daily; 90 tablet. - Medication Reconciliation, Local Pharmacy Hours form. - Follow up: Karen Feliciano; When: 2 - 3 days. - Problem is new. - Symptoms have improved. Historical: - Allergies: Clindamycin (Rash); Erythromycin (Rash); PENICILLINS (Rash); - Home Meds: 1. Claritin 10 mg Oral tab 1 tab once daily hasnt taken in 2 months 2. Ventolin Rotahaler/Rotacaps 200 mcg Inhl CpDv 200 mcg daily ran out 3. prednisolone 5 mg Oral tab - PMHx: Chronic Back pain; Asthma; Chronic Neck Pain; - PSHx: Biopsy, Breast- Left; Hysterectomy; Cystectomy; - Social history: Smoking status: Patient uses tobacco products, current every day smoker. No barriers to communication noted, The patient speaks fluent Korean. - Family history: No immediate family members are acutely ill. - : The pt / caregiver states he / she is not on anticoagulants. Home medication list is obtained from the patient. - Exposure Risk Screening:: None identified. 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 0 in. (152.40 cm) (R); Pain 7/10; 14:44 BP 121 / 73 (auto/); po 14:45 Pulse 82 MON; Pulse Ox 94% ; po 14:59 BP 116 / 69 (auto/); po 15:00 Pulse 82 MON; Pulse Ox 94% ; po 15:14 BP 120 / 69 (auto/); po 15:15 Pulse 82 MON; Resp 14; Pulse Ox 94% on R/A; Pain 4/10; po 15:29 BP 112 / 64 (auto/); po 15:30 Pulse 84 MON; Pulse Ox 95% ; po 15:44 BP 117 / 63 (auto/); po 15:45 Pulse 82 MON; Resp 16; Temp 98(O); Pulse Ox 95% on R/A; Pain 0/10; po 14:15 Body Mass Index 30.47 (70.76 kg, 152.40 cm) elp MDM: 14:20 Air And Water Filler/Pulse Ox/q 30 min VS ordered. sd1 14:20 IV Saline Lock ordered. sd1 14:20 Rhythm Strip to chart ordered. sd1 14:20 Undress patient appropriately for examination ordered. sd1 14:22 Basic Metabolic Profile Ordered. EDMS 14:22 CBC with Diff Ordered. EDMS 14:22 Cardiac Injury Profile Ordered. EDMS 14:22 Troponin Ordered. EDMS 14:22 portable chest Ordered. EDMS 14:22 ECG WITH READING ER PHYS+CARDIAG ordered. EDMS 15:02 ketorolac 30 mg IVP once ordered. sd1 15:30 Basic Metabolic Profile Reviewed. sd1 15:30 CBC with Diff Reviewed. sd1 15:30 Cardiac Injury Profile Reviewed. sd1 15:30 Troponin Reviewed. sd1 15:56 [facility] Payment Agreement was scanned into [employer] and attached to record. jp5 15:56 Financial registration complete. jp5 20:28 T-Sheet-- Draft Copy was scanned into [employer] and attached to record. klr 20:29 ECG/EKG was scanned into [employer] and attached to record. klr Administered Medications: 15:13 Drug: ketorolac 30 mg [ketorolac 30 mg/mL (1 mL) injection solution (1 mL)] Route: IVP; po Site: left forearm; 15:39 Follow up: Response: Pain is resolved po Signatures: Dispatcher [employer] EDMS Em Griffith MD MD sd1 Vicente Stapleton RN RN po Smith, Mallory, RN RN ms18 Tenisha Avalos jp5 Humera Bolton The chart was reviewed and I authenticate all verbal orders and agree with the evaluation and treatment provided.Attachments: 15:56 [facility] Payment Agreement jp5 20:28 T-Sheet-- Draft Copy klr 20:29 ECG/EKG klr Chart Complete MTDD
--- NOTE | 2016-10-08 16:55 | EDDOCDS ---
Nurse's Notes [facility] Name: Óscar Murry Age: 46 yrs Sex: Female : 1970 Arrival Date: 10/06/2016 Time: 14:13 Bed 18 Private MD: Karen Feliciano M. Diagnosis: Other chest pain-chest wall pain probable costocondritis Presentation: 10/06 14:19 Presenting complaint: Patient states: that she was seen here yesterday for chest pain ms18 and given medications. Pt states that the chest pain is still present and comes and goes. Aspirin was not taken prior to arrival. Adult Sepsis Screening: The patient does not have new or worsening altered mentation. Patient's respiratory rate is less than 22. Systolic blood pressure is greater than 100. Patient has a qSOFA score of 0- Negative Sepsis Screen. Suicide/Homicide risk assessment- the patient denies having any suicidal and/or homicidal ideations and does not present with any other emotional, behavioral or mental health complaints. Status: Patient is not a director of medical services or dependent. Transition of care: patient was not received from another setting of care. 14:19 Acuity: ILANA Level 3 ms18 14:19 Method Of Arrival: Walkin/Carried/Asstd ms18 Triage Assessment: 14:23 General: Appears in no apparent distress, comfortable, Behavior is appropriate for age, ms18 cooperative. Pain: Location: mid-sternal area Pain currently is 6 out of 10 on a pain scale. HIV screening NA for this visit Offered previously. Neurological: Level of Consciousness is awake, alert, obeys commands, Oriented to person, place, time. Cardiovascular: Chest pain is described as diffuse, radiates Does not radiate. episodes are intermittent began a week ago. Respiratory: Airway is patent Respiratory effort is even, unlabored. Derm: Skin is pink, warm & dry. COVER INSPECTOR: 14:23 LMP N/A - Hysterectomy ms18 Historical: - Allergies: Clindamycin (Rash); Erythromycin (Rash); PENICILLINS (Rash); - Home Meds: 1. Claritin 10 mg Oral tab 1 tab once daily hasnt taken in 2 months 2. Ventolin Rotahaler/Rotacaps 200 mcg Inhl CpDv 200 mcg daily ran out 3. prednisolone 5 mg Oral tab - PMHx: Chronic Back pain; Asthma; Chronic Neck Pain; - PSHx: Biopsy, Breast- Left; Hysterectomy; Cystectomy; - Social history: Smoking status: Patient uses tobacco products, current every day smoker. No barriers to communication noted, The patient speaks fluent Czech. - Family history: No immediate family members are acutely ill. - : The pt / caregiver states he / she is not on anticoagulants. Home medication list is obtained from the patient. - Exposure Risk Screening:: None identified. Screenin:49 Screening information is obtained from the patient. Fall risk: No risks identified. po Assistance ADL's: requires no assistance with activities of daily living. Abuse/DV Screen: The patient / caregiver reports he/she is: not in a situation that causes fear, pain or injury. Nutritional screening: No deficits noted. Advance Directives: Currently, there is no health care proxy. There is no active DNR order. Further advance directive information is declined. home support is adequate. Assessment: 14:49 General: Appears in no apparent distress, comfortable, Behavior is appropriate for age, po cooperative, pleasant. Pain: Location: mid-sternal area Pain currently is 5 out of 10 on a pain scale. Quality of pain is described as sharp, Is intermittent. Neurological: Level of Consciousness is awake, alert, Oriented to person, place, time. Cardiovascular: Rhythm is sinus rhythm. Respiratory: Airway is patent Respiratory effort is even, unlabored, Breath sounds are clear bilaterally. Derm: Skin is intact, is healthy with good turgor, Skin is pink, warm & dry. Musculoskeletal: Tenderness present in mid-sternal area. 15:51 General: Appears in no apparent distress, comfortable, Behavior is appropriate for age, po cooperative, pleasant. Pain: Denies pain. Neurological: No deficits noted. Cardiovascular: Rhythm is sinus rhythm Chest pain is denied. Respiratory: Airway is patent Respiratory effort is even, unlabored, Breath sounds are clear bilaterally. GI: No deficits noted. Derm: Skin is intact, is healthy with good turgor, Skin is pink, warm & dry. Vital Signs: 14:15 BP 116 / 69; Pulse 93; Resp 18; Temp 97.8(O); Pulse Ox 97% on R/A; Weight 70.76 kg (R); elp Height 5 ft. 0 in. (152.40 cm) (R); Pain 7/10; 14:44 BP 121 / 73 (auto/); po 14:45 Pulse 82 MON; Pulse Ox 94% ; po 14:59 BP 116 / 69 (auto/); po 15:00 Pulse 82 MON; Pulse Ox 94% ; po 15:14 BP 120 / 69 (auto/); po 15:15 Pulse 82 MON; Resp 14; Pulse Ox 94% on R/A; Pain 4/10; po 15:29 BP 112 / 64 (auto/); po 15:30 Pulse 84 MON; Pulse Ox 95% ; po 15:44 BP 117 / 63 (auto/); po 15:45 Pulse 82 MON; Resp 16; Temp 98(O); Pulse Ox 95% on R/A; Pain 0/10; po 14:15 Body Mass Index 30.47 (70.76 kg, 152.40 cm) elp Vitals: 14:15 Log In Time: October 06, 2016 at 14:13. RN notified that patient meets Red Flag elp criteria. ED Course: 14:15 Patient visited by Jeri Vizcaino PCA. elp 14:15 Karen Feliciano is Private Physician. elp 14:15 Patient moved to Waiting elp 14:16 Patient visited by Jeri Vizcaino PCA. elp 14:18 Vicente Stapleton,RN is Primary Nurse. elp 14:18 Patient moved to 18 elp 14:19 Patient visited by Liliana Watkins RN. ms18 14:21 Triage Initiated ms18 14:27 Em Griffith MD is Attending Physician. sd1 14:31 Patient visited by Ken Reilly PCA. jrd 14:31 EKG done. (by ED staff). Reviewed by Em Griffith MD. jrd 14:43 Patient visited by Em Griffith MD. sd1 14:49 The patient / caregiver is instructed regarding the plan of care and ED course. Placed po in gown. Bed in low position. Call light in reach. Side rails up X2. telemetry monitor on. Pulse ox on. NIBP on. 14:49 Basic Metabolic Profile Sent. po 14:49 CBC with Diff Sent. po 14:49 Cardiac Injury Profile Sent. po 14:49 Troponin Sent. po 14:49 Inserted saline lock: 20 gauge in left forearm. po 14:51 Patient visited by Vicente Stapleton RN. po 15:38 Karen Feliciano is Referral Physician. sd1 15:53 Discontinued IV lock intact, bleeding controlled, pressure dressing applied, No po redness/swelling at site. No procedures done that require assistance. 15:53 portable chest Returned. EDMS 15:54 Patient visited by Vicente Stapleton RN. po 15:56 [facility] Payment Agreement was scanned into [employer] and attached to record. jp5 20:28 T-Sheet-- Draft Copy was scanned into [employer] and attached to record. klr 20:29 ECG/EKG was scanned into [employer] and attached to record. klr 10/07 07:58 EKG-ADULT Returned. EDMS Administered Medications: 10/06 15:13 Drug: ketorolac 30 mg [ketorolac 30 mg/mL (1 mL) injection solution (1 mL)] Route: IVP; po Site: left forearm; 15:39 Follow up: Response: Pain is resolved po Order Results: Lab Order: Basic Metabolic Profile; SPEC'M 10/06/16 14:43 Test: GLUCOSE, FASTING; Value: 150; Range: 70-105; Abnormal: Above high normal; Units: MG/DL; Status: F Test: BLOOD UREA NITROGEN; Value: 13; Range: 7-18; Units: MG/DL; Status: F Test: CREATININE FOR GFR; Value: 0.96; Range: 0.55-1.02; Units: MG/DL; Status: F Test: GLOMERULAR FILTRATION RATE; Value: > 60.0; Range: >58; Status: F Test: SODIUM LEVEL; Value: 142; Range: 136-145; Units: MEQ/L; Status: F Test: POTASSIUM SERUM; Value: 4.4; Range: 3.5-5.1; Units: MEQ/L; Status: F Test: CHLORIDE LEVEL; Value: 105; Range: 98-107; Units: MEQ/L; Status: F Test: CARBON DIOXIDE LEVEL; Value: 29; Range: 21-32; Units: MEQ/L; Status: F Test: ANION GAP; Value: 8; Range: 8-16; Units: MEQ/L; Status: F Test: CALCIUM LEVEL; Value: 8.9; Range: 8.5-10.1; Units: MG/DL; Status: F Test Note: ; Units are mL/min/1.73 m2 Chronic Kidney Disease Staging per NKF: Stage I & II GFR >=60 Normal to Mildly Decreased Stage III GFR 30-59 Moderately Decreased Stage IV GFR 15-29 Severely Decreased Stage V GFR <15 Very Little GFR Left ESRD GFR <15 on IT SENIOR ANALYST Lab Order: CBC with Diff; SPEC'M 10/06/16 14:43 Test: WHITE BLOOD COUNT; Value: 12.4; Range: 4.0-10.0; Abnormal: Above high normal; Units: K/mm3; Status: F Test: RED BLOOD COUNT; Value: 4.85; Range: 4.00-5.40; Units: M/mm3; Status: F Test: HEMOGLOBIN; Value: 14.9; Range: 12.0-16.0; Units: g/dl; Status: F Test: HEMATOCRIT; Value: 47.1; Range: 36.0-47.0; Abnormal: Above high normal; Units: %; Status: F Test: MEAN CORPUSCULAR VOLUME; Value: 97.1; Range: 80.0-96.0; Abnormal: Above high normal; Units: fl; Status: F Test: MEAN CORPUSCULAR HEMOGLOBIN; Value: 30.7; Range: 27.0-33.0; Units: pg; Status: F Test: MEAN CORPUSCULAR HGB CONC; Value: 31.6; Range: 32.0-36.5; Abnormal: Below low normal; Units: g/dl; Status: F Test: RED CELL DISTRIBUTION WIDTH; Value: 13.3; Range: 11.5-14.5; Units: %; Status: F Test: PLATELET COUNT, AUTOMATED; Value: 394; Range: 150-450; Units: k/mm3; Status: F Test: NEUTROPHILS %; Value: 82.4; Range: 36.0-66.0; Abnormal: Above high normal; Units: %; Status: F Test: LYMPH %; Value: 13.2; Range: 24.0-44.0; Abnormal: Below low normal; Units: %; Status: F Test: MONO %; Value: 2.3; Range: 0.0-5.0; Units: %; Status: F Test: EOS %; Value: 0.3; Range: 0.0-3.0; Units: %; Status: F Test: BASO %; Value: 1.0; Range: 0.0-1.0; Units: %; Status: F Test: LARGE UNSTAINED CELL %; Value: 0.8; Range: 0.0-4.0; Units: %; Status: F Test: NEUTROPHILS #; Value: 10.2; Range: 1.8-7.7; Abnormal: Above high normal; Units: K/mm3; Status: F Test: LYMPH #; Value: 1.7; Range: 1.5-4.5; Units: K/mm3; Status: F Test: MONO #; Value: 0.3; Range: 0.0-0.8; Units: K/mm3; Status: F Test: EOS #; Value: 0.0; Range: 0.0-0.50; Units: K/mm3; Status: F Test: BASO #; Value: 0.1; Range: 0.0-0.2; Units: K/mm3; Status: F Test: LARGE UNSTAINED CELL #; Value: 0.1; Range: 0.0-0.4; Units: K/mm3; Status: F Lab Order: Cardiac Injury Profile; SPEC'M 10/06/16 14:43 Test: CPK CREATINE PHOSPHOKINASE; Value: 110; Range: 26-192; Units: U/L; Status: F Test: CK-MB VALUE MASS; Value: 1.4; Range: 0.0-3.6; Units: NG/ML; Status: F Test: MB/CK RELATIVE INDEX; Value: 1.27; Range: < OR =4; Status: F Test Note: ; DIAGNOSIS CRITERIA MMB ng/ml Relative Index (RI) NON-AMI < or = 5 N/A HUANG ZONE > 5 < or = 4 AMI > 5 > 4 Lab Order: Troponin; SPEC'M 10/06/16 14:43 Test: TROPONIN I; Value: < 0.02; Range: < 0.10; Units: NG/ML; Status: F Test Note: ; Troponin I Reference Interval for AmberWave LOCI: 99th Percentile= 0.00-0.045 ng/ml Risk Stratification: <= 0.10 ng/ml Decreased Risk for Adverse Clinical Events. 0.10-1.50 ng/ml Increased Risk for Adverse Clinical Events. Evaluation of additional criterion and/or repeat testing in 2-6 hours is suggested to rule out myocardial damage. >= 1.50 ng/ml Indicative of Myocardial Injury. Radiology Order: portable chest Test: portable chest REASON FOR EXAMINATION: Chest Pain; Clinical: Chest pain.; ; Comparison: 10/05/2016 .; ; Findings:; The mediastinum and cardiac silhouette are stable and within normal limits for; portable technique. The lung ames are clear without acute consolidation,; effusion, or pneumothorax. 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 sd1 15:53 Discharge Assessment: patient administered narcotics - no. The following High Risk po Discharge criteria are identified: None. Discharged to home ambulatory. Condition: improved. Discharge instructions given to patient, Instructed on discharge instructions, follow up and referral plans. medication usage, Demonstrated understanding of instructions, medications, Pt was receptive of discharge instructions/ teaching. Prescriptions given X 2. No special radiology studies were completed. Property sent home with patient. 15:54 Patient left the ED. po Signatures: Dispatcher [employer] EDAL Em Griffith MD MD sd1 Vicente Stapleton,RN RN po Jeri Vizcaino, POULTRY SCIENTIST POULTRY SCIENTIST Liliana RatliffLALA RN ms18 Ken Reilly, POULTRY SCIENTIST POULTRY SCIENTIST jrd Tenisha Avalos jp5 Humera Bolton Chart Complete MTDD
--- NOTE | 2016-10-08 16:55 | EDDOCDS ---
Physician Documentation [facility] Name: Angélica Queen Age: 46 yrs Sex: Female : 1970 Arrival Date: 10/06/2016 Time: 14:13 Bed 18 Private MD: Karen Feliciano M. Disposition: 10/06/16 15:38 Discharged to Home/Self Care. Impression: Other chest pain - chest wall pain probable costocondritis. - Condition is Stable. - Discharge Instructions: Angina Pectoris, Nonspecific Chest Pain, Chest Wall Pain, Costochondritis. - Prescriptions for Naprosyn 500 mg Oral Tablet - take 1 tablet by ORAL route 2 times per day take with food; 30 tablet. Aspirin 81 mg - take 1 tablet by ORAL route once daily; 90 tablet. - Medication Reconciliation, Local Pharmacy Hours form. - Follow up: Karen Feliciano; When: 2 - 3 days. - Problem is new. - Symptoms have improved. Historical: - Allergies: Clindamycin (Rash); Erythromycin (Rash); PENICILLINS (Rash); - Home Meds: 1. Claritin 10 mg Oral tab 1 tab once daily hasnt taken in 2 months 2. Ventolin Rotahaler/Rotacaps 200 mcg Inhl CpDv 200 mcg daily ran out 3. prednisolone 5 mg Oral tab - PMHx: Chronic Back pain; Asthma; Chronic Neck Pain; - PSHx: Biopsy, Breast- Left; Hysterectomy; Cystectomy; - Social history: Smoking status: Patient uses tobacco products, current every day smoker. No barriers to communication noted, The patient speaks fluent [place]. - Family history: No immediate family members are acutely ill. - : The pt / caregiver states he / she is not on anticoagulants. Home medication list is obtained from the patient. - Exposure Risk Screening:: None identified. CUSTOMER RESOLUTION SPECIALIST: 10/06 14:23 LMP N/A - Hysterectomy ms18 Vital Signs: 14:15 BP 116 / 69; Pulse 93; Resp 18; Temp 97.8(O); Pulse Ox 97% on R/A; Weight 70.76 kg / elp 156 lbs (R); Height 5 ft. 0 in. (152.40 cm) (R); Pain 7/10; 14:44 BP 121 / 73 (auto/); po 14:45 Pulse 82 MON; Pulse Ox 94% ; po 14:59 BP 116 / 69 (auto/); po 15:00 Pulse 82 MON; Pulse Ox 94% ; po 15:14 BP 120 / 69 (auto/); po 15:15 Pulse 82 MON; Resp 14; Pulse Ox 94% on R/A; Pain 4/10; po 15:29 BP 112 / 64 (auto/); po 15:30 Pulse 84 MON; Pulse Ox 95% ; po 15:44 BP 117 / 63 (auto/); po 15:45 Pulse 82 MON; Resp 16; Temp 98(O); Pulse Ox 95% on R/A; Pain 0/10; po 14:15 Body Mass Index 30.47 (70.76 kg, 152.40 cm) elp MDM: 14:20 Sprinkler Inspector/Pulse Ox/q 30 min VS ordered. sd1 14:20 IV Saline Lock ordered. sd1 14:20 Rhythm Strip to chart ordered. sd1 14:20 Undress patient appropriately for examination ordered. sd1 14:22 Basic Metabolic Profile Ordered. EDMS 14:22 CBC with Diff Ordered. EDMS 14:22 Cardiac Injury Profile Ordered. EDMS 14:22 Troponin Ordered. EDMS 14:22 portable chest Ordered. EDMS 14:22 ECG WITH READING ER PHYS+CARDIAG ordered. EDMS 15:02 ketorolac 30 mg IVP once ordered. sd1 15:30 Basic Metabolic Profile Reviewed. sd1 15:30 CBC with Diff Reviewed. sd1 15:30 Cardiac Injury Profile Reviewed. sd1 15:30 Troponin Reviewed. sd1 15:56 [facility] Payment Agreement was scanned into [employer] and attached to record. jp5 15:56 Financial registration complete. jp5 20:28 T-Sheet-- Draft Copy was scanned into [employer] and attached to record. klr 20:29 ECG/EKG was scanned into [employer] and attached to record. klr Administered Medications: 15:13 Drug: ketorolac 30 mg [ketorolac 30 mg/mL (1 mL) injection solution (1 mL)] Route: IVP; po Site: left forearm; 15:39 Follow up: Response: Pain is resolved po Signatures: Dispatcher [employer] EDMS Em Griffith MD MD sd1 Vicente Stapleton RN RN po Smith, Mallory, RN RN ms18 Tenisha Avalos jp5 Humera Bolton The chart was reviewed and I authenticate all verbal orders and agree with the evaluation and treatment provided.Attachments: 15:56 [facility] Payment Agreement jp5 20:28 T-Sheet-- Draft Copy klr 20:29 ECG/EKG klr Chart Complete MTDD
== END 2016-10-06 15:54 | disposition home or self-care (01) ==
LOC: M ED 14:13
DX: M94.0 Chondrocostal junction syndrome [Tietze] (principal); G89.29 Other chronic pain; M54.2 Cervicalgia; J45.909 Unspecified asthma, uncomplicated; Z90.79 Acquired absence of other genital organ(s); Z90.49 Acquired absence of other specified parts of digestive tract; F17.200 Nicotine dependence, unspecified, uncomplicated; Z79.899 Other long term (current) drug therapy; Z88.0 Allergy status to penicillin; Z88.1 Allergy status to other antibiotic agents
CPT/HCPCS: 71010; 80048; 82550; 82553; 85025; 93005; 93041; 96374; 99285; J1885

== ENCOUNTER 2016-10-17 12:42 | Emergency (ER) | payer OTHER ==
[2016-10-17] MEDS ORDERED: ASPIRIN 81 MG CHEW TABLET As Ordered ONE (13:18)
[2016-10-17 13:51] LABS: BASO % 0.5 % (0.0-1.0); EOS # 0.1 K/mm3 (0.0-0.50); EOS % 1.7 % (0.0-3.0); LARGE UNSTAINED CELL # 0.1 K/mm3 (0.0-0.4); LARGE UNSTAINED CELL % 1.7 % (0.0-4.0); LYMPH # 2.4 K/mm3 (1.5-4.5); LYMPH % 29.6 % (24.0-44.0); MEAN CORPUSCULAR HEMOGLOBIN 31.2 pg (27.0-33.0); MEAN CORPUSCULAR HGB CONC 33.2 g/dl (32.0-36.5); MONO # 0.5 K/mm3 (0.0-0.8); NEUTROPHILS # 4.9 K/mm3 (1.8-7.7); NEUTROPHILS % 60.5 % (36.0-66.0); PLATELET COUNT, AUTOMATED 341 k/mm3 (150-450); RED CELL DISTRIBUTION WIDTH 12.6 % (11.5-14.5); WHITE BLOOD COUNT 8.2 K/mm3 (4.0-10.0)
--- NOTE | 2016-10-17 14:05 | REP ---
Chest one-view HISTORY: Chest pain Comparison: 10/06/2016 The lungs are clear. The heart is normal in size. The pulmonary vasculature is normal in appearance. Impression: No acute disease. Signed by Waylon Arteaga MD 10/17/2016 01:58 P
[2016-10-17 14:12] LABS: ANION GAP 9 MEQ/L (8-16); BLOOD UREA NITROGEN 7 MG/DL (7-18); CALCIUM LEVEL 8.8 MG/DL (8.5-10.1); CARBON DIOXIDE LEVEL 26 MEQ/L (21-32); CHLORIDE LEVEL 106 MEQ/L (98-107); CREATININE FOR GFR 0.76 MG/DL (0.55-1.02); GLOMERULAR FILTRATION RATE > 60.0 (>58); GLUCOSE, FASTING 95 MG/DL (70-105); POTASSIUM SERUM 4.2 MEQ/L (3.5-5.1); SODIUM LEVEL 141 MEQ/L (136-145)
[2016-10-17] MEDS ORDERED: KETOROLAC 30 MG/ML VIAL (J1885) As Ordered ONE (14:38)
[2016-10-17] MEDS ORDERED: GI COCKTAIL 50ML BTL(HYOSCYAMINE/MAALOX/LIDOCAINE VISCOUS)(1:3:1) As Ordered ONE (14:38)
--- NOTE | 2016-10-17 16:00 | EDDOCDS ---
Physician Documentation [facility] Name: Angélica Garibay Age: 46 yrs Sex: Female : 1970 Arrival Date: 10/17/2016 Time: 12:42 Bed TR7 Private MD: Karen Feliciano M. Disposition: 10/17/16 15:00 Discharged to Home/Self Care. Impression: Chest pain, unspecified. - Condition is Stable. - Discharge Instructions: Nonspecific Chest Pain. - Medication Reconciliation, Local Pharmacy Hours form. - Follow up: Karen Feliciano; When: Call to arrange an appointment; Reason: Continuance of care. [facility]; When: Call to arrange an appointment; Reason: Continuance of care. - Problem is new. - Symptoms have improved. Historical: - Allergies: Clindamycin (Rash); Erythromycin (Rash); PENICILLINS (Rash); - Home Meds: 1. Claritin 10 mg Oral tab 1 tab once daily hasnt taken in 2 months (Last dose: Unknown) 2. albuterol sulfate 90 mcg/actuation Inhl HFAA 1 puff every 4 hours as needed (Last dose: Unknown) 3. aspirin 81 mg Oral tab 1 tab once daily (Last dose: 10/16/2016 19:00) 4. aspirin 325 mg Oral TbEC 2 tabs as needed (Last dose: 10/16/2016 19:00) - PMHx: Asthma; Chronic Back pain; Chronic Neck Pain; - PSHx: Biopsy, Breast- Left; Hysterectomy; Cystectomy; - Social history: Smoking status: Patient uses tobacco products, current some day smoker. No barriers to communication noted, The patient speaks fluent Turkish. - Family history: No immediate family members are acutely ill. - : The pt / caregiver states he / she is not on anticoagulants. Home medication list is obtained from the patient. - Exposure Risk Screening:: None identified. SURGICAL ASSISTANT: 10/17 12:59 LMP N/A - Hysterectomy jc4 Vital Signs: 13:01 BP 120 / 74; Pulse 72; Resp 20; Temp 96.7(O); Pulse Ox 98% on R/A; Weight 70.76 kg / jc4 156 lbs (R); Height 5 ft. 0 in. (152.40 cm); Pain 6/10; 13:45 BP 132 / 80; Pulse 78; Resp 20; Pulse Ox 98% on R/A; dwg 15:40 BP 131 / 74; Pulse 76; Resp 20; Temp 97.1(T); Pulse Ox 99% on R/A; Pain 0/10; dwg 13:01 Body Mass Index 30.47 (70.76 kg, 152.40 cm) jc4 MDM: 12:45 ECG WITH READING ER PHYS+CARDIAG ordered. EDMS 13:15 Aspirin Chewable Tablet 324 mg PO once ordered. fg 13:15 [employer] Counter Person/Pulse Ox/q 30 min VS ordered. fg 13:15 IV Saline Lock ordered. fg 13:15 Rhythm Strip to chart ordered. fg 13:15 Undress patient appropriately for examination ordered. fg 13:17 portable chest Ordered. EDMS 13:17 B-Type Natiuretic Peptide Ordered. EDMS 13:17 Basic Metabolic Profile Ordered. EDMS 13:17 CBC with Diff Ordered. EDMS 13:17 Cardiac Injury Profile Ordered. EDMS 13:17 Troponin Ordered. EDMS 14:31 ketorolac 30 mg IVP once ordered. fg 14:31 GI Cocktail - (Alum-Mag Hydroxide-Simeth 30 ml, Lidocaine 10 ml, Hyoscyamine 10 ml) PO fg once; Pre-mixed 50mL unit dose ordered. 14:32 REGULAR+DIET ordered. EDMS 15:23 [facility] Payment Agreement was scanned into [employer] and attached to record. [facility] 15:23 Financial registration complete. b Administered Medications: 13:41 Drug: Aspirin 324 mg [aspirin 81 mg chewable tablet (4 tabs)] Route: PO; [facility] 14:47 Drug: GI Cocktail - (Alum-Mag Hydroxide-Simeth Suspension 225 mg-200 mg-25 mg/5 mL 30 ja5 ml, Lidocaine Liquid 2 % 10 ml, Hyoscyamine Liquid 10 ml) Route: PO; 15:41 Follow up: Response: Pain is resolved dw 14:48 Drug: ketorolac 30 mg [ketorolac 30 mg/mL (1 mL) injection solution (1 mL)] Route: IVP; ja5 Site: right forearm; Signatures: Dispatcher [employer] EDMS Hoang Calderón RN RN dwg Hannah Willoughby RN RN jc4 Oliva Mcgraw MD MD fg Beck, Gabriela Analia Leal RN ja5 The chart was reviewed and I authenticate all verbal orders and agree with the evaluation and treatment provided.Attachments: 15:23 [facility] Payment Agreement paramjit MTDD
--- NOTE | 2016-10-17 16:00 | EDDOCDS ---
Nurse's Notes [facility] Name: Angélica Garibay Age: 46 yrs Sex: Female : 1970 Arrival Date: 10/17/2016 Time: 12:42 Bed TR7 Private MD: Karen Feliciano M. Diagnosis: Chest pain, unspecified Presentation: 10/17 12:44 Presenting complaint: EMS states: were called to [facility] for patient. Patient has had jc4 mid-sternal chest pain since the beginning of the month. Has been seen in this ED for same and went for follow-up appt. Allegedly, patient did not like how her visit was going so she called the police. Transition of care: patient was received from a primary care office; [facility]. 12:44 Method Of Arrival: Ambulance jc4 12:44 Acuity: ILANA Level 3 jc4 12:44 Aspirin was not taken prior to arrival. Suicide/Homicide risk assessment- the patient jc4 denies having any suicidal and/or homicidal ideations and does not present with any other emotional, behavioral or mental health complaints. Status: Patient is not a community service director or dependent. 15:58 Adult Sepsis Screening: The patient does not have new or worsening altered mentation. dwg Patient's respiratory rate is less than 22. Systolic blood pressure is greater than 100. Patient has a qSOFA score of 0- Negative Sepsis Screen. Triage Assessment: 12:57 General: Appears in no apparent distress, Behavior is cooperative. Pain: Pain currently jc4 is 6 out of 10 on a pain scale. HIV screening NA for this visit Offered previously. The patient is triaged at the bedside. See Assessment in Nurses Notes section of ED record. Cardiovascular: Chest pain is described as Pain is 6 out of 10 on a pain scale. is located in substernal area radiates Does not radiate. episodes are intermittent began "beginning of the month" is aggravated by by pressing on area. GLOBAL PROGRAM MANAGER: 12:59 LMP N/A - Hysterectomy jc4 Historical: - Allergies: Clindamycin (Rash); Erythromycin (Rash); PENICILLINS (Rash); - Home Meds: 1. Claritin 10 mg Oral tab 1 tab once daily hasnt taken in 2 months (Last dose: Unknown) 2. albuterol sulfate 90 mcg/actuation Inhl HFAA 1 puff every 4 hours as needed (Last dose: Unknown) 3. aspirin 81 mg Oral tab 1 tab once daily (Last dose: 10/16/2016 19:00) 4. aspirin 325 mg Oral TbEC 2 tabs as needed (Last dose: 10/16/2016 19:00) - PMHx: Asthma; Chronic Back pain; Chronic Neck Pain; - PSHx: Biopsy, Breast- Left; Hysterectomy; Cystectomy; - Social history: Smoking status: Patient uses tobacco products, current some day smoker. No barriers to communication noted, The patient speaks fluent Romanian. - Family history: No immediate family members are acutely ill. - : The pt / caregiver states he / she is not on anticoagulants. Home medication list is obtained from the patient. - Exposure Risk Screening:: None identified. Screenin:41 Screening information is obtained from the patient. Fall risk: No risks identified. dwg Assistance ADL's: requires no assistance with activities of daily living. Abuse/DV Screen: The patient / caregiver reports he/she is: not in a situation that causes fear, pain or injury. Nutritional screening: No deficits noted. Advance Directives: Currently, there is no health care proxy. There is no active DNR order. There is no living will. There is no Power of Ag Service Manager. Advance directive information has not previously been placed in an [facility] medical record. Further advance directive information is declined. 15:58 home support is adequate. dwg Assessment: 13:42 General: Appears in no apparent distress, Behavior is cooperative. General: Left side dwg chest pain for 3-4 weeks, no shortness of breath.. Pain: Location: left breast Pain currently is 6 out of 10 on a pain scale. Neurological: Level of Consciousness is awake, alert, Oriented to person, place, time. Cardiovascular: Rhythm is regular. Cardiovascular:. Respiratory: Airway is patent Respiratory effort is even, unlabored, Respiratory pattern is regular, symmetrical, Breath sounds are clear bilaterally. GI: Bowel sounds present X 4 quads. 14:20 General: Dr. Mcgraw in assessing patient. NSR on monitor.. dwg 14:34 General: Appears in no apparent distress, Behavior is cooperative. Pain: Denies pain. dwg Cardiovascular: Rhythm is regular. 15:39 General: Appears in no apparent distress, Behavior is cooperative. Pain: Denies pain. dwg Neurological: Level of Consciousness is awake, alert, Oriented to person, place, time. Cardiovascular: Rhythm is regular. Respiratory: Airway is patent Respiratory effort is even, unlabored, Respiratory pattern is regular, symmetrical. Vital Signs: 13:01 BP 120 / 74; Pulse 72; Resp 20; Temp 96.7(O); Pulse Ox 98% on R/A; Weight 70.76 kg (R); jc4 Height 5 ft. 0 in. (152.40 cm); Pain 6/10; 13:45 BP 132 / 80; Pulse 78; Resp 20; Pulse Ox 98% on R/A; dwg 15:40 BP 131 / 74; Pulse 76; Resp 20; Temp 97.1(T); Pulse Ox 99% on R/A; Pain 0/10; dwg 13:01 Body Mass Index 30.47 (70.76 kg, 152.40 cm) [facility] Vitals: 12:59 Log In Time N/A - ambulance arrival. [facility] ED Course: 12:43 Patient visited by Ken Reilly PCA. jrd 12:43 Janet Watkins RN is Primary Nurse. jrd 12:43 Hannah Willoughby RN is Primary Nurse. jrd 12:43 Patient moved to Waiting jrd 12:43 Patient moved to 11 jrd 12:44 Karen Feliciano is Private Physician. jrd 12:50 Triage Initiated jc4 12:56 Patient visited by Ken Reilly PCA. jrd 12:56 EKG done. (by ED staff). Reviewed by Lainey Ahuaj [facility]. jrd 13:12 Primary Nurse role handed off by Hannah Willoughby RN [facility] 13:14 Oliva Mcgraw MD is Attending Physician. fg 13:40 B-Type Natiuretic Peptide Sent. dwg 13:40 Basic Metabolic Profile Sent. dwg 13:40 CBC with Diff Sent. dwg 13:41 Cardiac Injury Profile Sent. dwg 13:41 Troponin Sent. dwg 13:41 Inserted peripheral IV: 20gauge IV in right Wrist. Labs drawn. (by ED staff). [facility] lab. 13:45 Patient visited by Hoang Calderón RN. dw 14:14 Patient visited by Oliva Mcgraw MD. fg 14:28 portable chest Returned. EDMS 14:34 Patient visited by Hoang Calderón, LALA. dwg 15:00 Karen Feliciano is Referral Physician. fg 15:[address] [facility] is Referral Physician. fg 15:23 [facility] Payment Agreement was scanned into [employer] and attached to record. gjb 15:37 Patient name changed from Angélica\\S\\Oneyda\\S\\Queen\\S\\ to Angélica\\S\\ \\S\\Queen. EDMS 15:39 Patient name changed from Angélica\\S\\ \\S\\Queen\\S\\ to Angélica\\S\\M\\S\\Garibay. EDMS 15:42 Patient visited by Hoang Calderón RN. dwg 15:45 Patient moved to D1 [facility] 15:55 Patient moved to TR7 [facility] 15:58 The patient / caregiver is instructed regarding the plan of care and ED course. Cardiac dwg monitor on. Pulse ox on. NIBP on. 15:58 Inserted. No procedures done that require assistance. dwg Administered Medications: 13:41 Drug: Aspirin 324 mg [aspirin 81 mg chewable tablet (4 tabs)] Route: PO; dwg 14:47 Drug: GI Cocktail - (Alum-Mag Hydroxide-Simeth Suspension 225 mg-200 mg-25 mg/5 mL 30 ja5 ml, Lidocaine Liquid 2 % 10 ml, Hyoscyamine Liquid 10 ml) Route: PO; 15:41 Follow up: Response: Pain is resolved dwg 14:48 Drug: ketorolac 30 mg [ketorolac 30 mg/mL (1 mL) injection solution (1 mL)] Route: IVP; ja5 Site: right forearm; Order Results: Lab Order: B-Type Natiuretic Peptide; SPEC'M 10/17/16 13:36 Test: BRAIN NATRIURETIC PEPTIDE; Value: 51.7; Range: <100; Units: PG/ML; Status: F Lab Order: Basic Metabolic Profile; SPEC'M 10/17/16 13:36 Test: GLUCOSE, FASTING; Value: 95; Range: 70-105; Units: MG/DL; Status: F Test: BLOOD UREA NITROGEN; Value: 7; Range: 7-18; Units: MG/DL; Status: F Test: CREATININE FOR GFR; Value: 0.76; Range: 0.55-1.02; Units: MG/DL; Status: F Test: GLOMERULAR FILTRATION RATE; Value: > 60.0; Range: >58; Status: F Test: SODIUM LEVEL; Value: 141; Range: 136-145; Units: MEQ/L; Status: F Test: POTASSIUM SERUM; Value: 4.2; Range: 3.5-5.1; Units: MEQ/L; Status: F Test: CHLORIDE LEVEL; Value: 106; Range: 98-107; Units: MEQ/L; Status: F Test: CARBON DIOXIDE LEVEL; Value: 26; Range: 21-32; Units: MEQ/L; Status: F Test: ANION GAP; Value: 9; Range: 8-16; Units: MEQ/L; Status: F Test: CALCIUM LEVEL; Value: 8.8; Range: 8.5-10.1; Units: MG/DL; Status: F Test Note: ; Units are mL/min/1.73 m2 Chronic Kidney Disease Staging per NKF: Stage I & II GFR >=60 Normal to Mildly Decreased Stage III GFR 30-59 Moderately Decreased Stage IV GFR 15-29 Severely Decreased Stage V GFR <15 Very Little GFR Left ESRD GFR <15 on WHIPPER Lab Order: CBC with Diff; SPEC'M 10/17/16 13:36 Test: WHITE BLOOD COUNT; Value: 8.2; Range: 4.0-10.0; Units: K/mm3; Status: F Test: RED BLOOD COUNT; Value: 4.53; Range: 4.00-5.40; Units: M/mm3; Status: F Test: HEMOGLOBIN; Value: 14.1; Range: 12.0-16.0; Units: g/dl; Status: F Test: HEMATOCRIT; Value: 42.6; Range: 36.0-47.0; Units: %; Status: F Test: MEAN CORPUSCULAR VOLUME; Value: 94.0; Range: 80.0-96.0; Units: fl; Status: F Test: MEAN CORPUSCULAR HEMOGLOBIN; Value: 31.2; Range: 27.0-33.0; Units: pg; Status: F Test: MEAN CORPUSCULAR HGB CONC; Value: 33.2; Range: 32.0-36.5; Units: g/dl; Status: F Test: RED CELL DISTRIBUTION WIDTH; Value: 12.6; Range: 11.5-14.5; Units: %; Status: F Test: PLATELET COUNT, AUTOMATED; Value: 341; Range: 150-450; Units: k/mm3; Status: F Test: NEUTROPHILS %; Value: 60.5; Range: 36.0-66.0; Units: %; Status: F Test: LYMPH %; Value: 29.6; Range: 24.0-44.0; Units: %; Status: F Test: MONO %; Value: 6.0; Range: 0.0-5.0; Abnormal: Above high normal; Units: %; Status: F Test: EOS %; Value: 1.7; Range: 0.0-3.0; Units: %; Status: F Test: BASO %; Value: 0.5; Range: 0.0-1.0; Units: %; Status: F Test: LARGE UNSTAINED CELL %; Value: 1.7; Range: 0.0-4.0; Units: %; Status: F Test: NEUTROPHILS #; Value: 4.9; Range: 1.8-7.7; Units: K/mm3; Status: F Test: LYMPH #; Value: 2.4; Range: 1.5-4.5; Units: K/mm3; Status: F Test: MONO #; Value: 0.5; Range: 0.0-0.8; Units: K/mm3; Status: F Test: EOS #; Value: 0.1; Range: 0.0-0.50; Units: K/mm3; Status: F Test: BASO #; Value: 0.0; Range: 0.0-0.2; Units: K/mm3; Status: F Test: LARGE UNSTAINED CELL #; Value: 0.1; Range: 0.0-0.4; Units: K/mm3; Status: F Lab Order: Cardiac Injury Profile; SPEC'M 10/17/16 13:36 Test: CPK CREATINE PHOSPHOKINASE; Value: 104; Range: 26-192; Units: U/L; Status: F Test: CK-MB VALUE MASS; Value: 1.2; Range: 0.0-3.6; Units: NG/ML; Status: F Test: MB/CK RELATIVE INDEX; Value: 1.15; Range: < OR =4; Status: F Test Note: ; DIAGNOSIS CRITERIA MMB ng/ml Relative Index (RI) NON-AMI < or = 5 N/A HUANG ZONE > 5 < or = 4 AMI > 5 > 4 Lab Order: Troponin; ELLEN'Benito 10/17/16 13:36 Test: TROPONIN I; Value: < 0.02; Range: < 0.10; Units: NG/ML; Status: F Test Note: ; Troponin I Reference Interval for [employer] LOCI: 99th Percentile= 0.00-0.045 ng/ml Risk Stratification: <= 0.10 ng/ml Decreased Risk for Adverse Clinical Events. 0.10-1.50 ng/ml Increased Risk for Adverse Clinical Events. Evaluation of additional criterion and/or repeat testing in 2-6 hours is suggested to rule out myocardial damage. >= 1.50 ng/ml Indicative of Myocardial Injury. Radiology Order: portable chest Test: portable chest REASON FOR EXAMINATION: Chest Pain; Chest one-view; ; HISTORY: Chest pain; ; Comparison: 10/06/2016; ; The lungs are clear. The heart is normal in size. The pulmonary vasculature is; normal in appearance.; ; Impression: No acute disease.; ; ; Signed by; Waylon Arteaga MD 10/17/2016 01:58 P; Outcome: 15:00 Discharge ordered by Provider. fg 15:57 Discharge Assessment: Patient awake, alert and oriented x 3. No cognitive and/or dwg functional deficits noted. Patient verbalized understanding of disposition instructions. patient administered narcotics - no. The following High Risk Discharge criteria are identified: None. Discharged to home ambulatory. Condition: good Condition: stable Condition: improved. No special radiology studies were completed. Property sent home with patient. 15:58 Patient left the ED. dwg Signatures: Dispatcher [employer] EDHoang Jensen RN Luzma Castellanos RN Hannah Gavin RN RN Gurinder Dunn,Ken Villarreal RN, GLENYS RULES EXAMINER Oliva Garcia MD MD fg Beck, Gabriela gjb Anderson, JessicaRN RN ja5 MTDD
--- NOTE | 2016-10-18 06:48 | ECGEPIP ---
Stationary ECG Study [facility] - ED Test Date: 2016-10-17 Pat Name: ÓSCAR MURRY Department: Room: - Gender: F Financial Reporting Consultant: kaylie : 1970 Requested By: BEE Carbone Order Number: [id number] Reading MD: Em Griffith Measurements Intervals [place] Rate: P: VT: 0 QRS: 0 QRSD: 0 T: 0 QT: 0 QTc: 0 Interpretive Statements NO INTERPRETATION POSSIBLE Electronically Signed On 10-18-2016 6:47:46 EST by Em Griffith
--- NOTE | 2016-10-19 16:59 | EDDOCDS ---
Physician Documentation [facility] Name: Angélica Garibay Age: 46 yrs Sex: Female : 1970 Arrival Date: 10/17/2016 Time: 12:42 Bed TR7 Private MD: Karen Feliciano M. Disposition: 10/17/16 15:00 Discharged to Home/Self Care. Impression: Chest pain, unspecified. - Condition is Stable. - Discharge Instructions: Nonspecific Chest Pain. - Medication Reconciliation, Local Pharmacy Hours form. - Follow up: Karen Feliciano; When: Call to arrange an appointment; Reason: Continuance of care. [facility]; When: Call to arrange an appointment; Reason: Continuance of care. - Problem is new. - Symptoms have improved. Historical: - Allergies: Clindamycin (Rash); Erythromycin (Rash); PENICILLINS (Rash); - Home Meds: 1. Claritin 10 mg Oral tab 1 tab once daily hasnt taken in 2 months (Last dose: Unknown) 2. albuterol sulfate 90 mcg/actuation Inhl HFAA 1 puff every 4 hours as needed (Last dose: Unknown) 3. aspirin 81 mg Oral tab 1 tab once daily (Last dose: 10/16/2016 19:00) 4. aspirin 325 mg Oral TbEC 2 tabs as needed (Last dose: 10/16/2016 19:00) - PMHx: Asthma; Chronic Back pain; Chronic Neck Pain; - PSHx: Biopsy, Breast- Left; Hysterectomy; Cystectomy; - Social history: Smoking status: Patient uses tobacco products, current some day smoker. No barriers to communication noted, The patient speaks fluent Korean. - Family history: No immediate family members are acutely ill. - : The pt / caregiver states he / she is not on anticoagulants. Home medication list is obtained from the patient. - Exposure Risk Screening:: None identified. RATING SPECIALIST: 10/17 12:59 LMP N/A - Hysterectomy jc4 Vital Signs: 13:01 BP 120 / 74; Pulse 72; Resp 20; Temp 96.7(O); Pulse Ox 98% on R/A; Weight 70.76 kg / jc4 156 lbs (R); Height 5 ft. 0 in. (152.40 cm); Pain 6/10; 13:45 BP 132 / 80; Pulse 78; Resp 20; Pulse Ox 98% on R/A; dwg 15:40 BP 131 / 74; Pulse 76; Resp 20; Temp 97.1(T); Pulse Ox 99% on R/A; Pain 0/10; dwg 13:01 Body Mass Index 30.47 (70.76 kg, 152.40 cm) jc4 MDM: 12:45 ECG WITH READING ER PHYS+CARDIAG ordered. EDMS 13:15 Aspirin Chewable Tablet 324 mg PO once ordered. fg 13:15 Inner Layer Scrubber Tender/Pulse Ox/q 30 min VS ordered. fg 13:15 IV Saline Lock ordered. fg 13:15 Rhythm Strip to chart ordered. fg 13:15 Undress patient appropriately for examination ordered. fg 13:17 portable chest Ordered. EDMS 13:17 B-Type Natiuretic Peptide Ordered. EDMS 13:17 Basic Metabolic Profile Ordered. EDMS 13:17 CBC with Diff Ordered. EDMS 13:17 Cardiac Injury Profile Ordered. EDMS 13:17 Troponin Ordered. EDMS 14:31 ketorolac 30 mg IVP once ordered. fg 14:31 GI Cocktail - (Alum-Mag Hydroxide-Simeth 30 ml, Lidocaine 10 ml, Hyoscyamine 10 ml) PO fg once; Pre-mixed 50mL unit dose ordered. 14:32 REGULAR+DIET ordered. EDMS 15:23 [facility] Payment Agreement was scanned into [employer] and attached to record. [facility] 15:23 Financial registration complete. b 10/18 10:12 T-Sheet-- Draft Copy was scanned into [employer] and attached to record. gb 10:12 ECG/EKG was scanned into [employer] and attached to record. gb Administered Medications: 10/17 13:41 Drug: Aspirin 324 mg [aspirin 81 mg chewable tablet (4 tabs)] Route: PO; dwg 14:47 Drug: GI Cocktail - (Alum-Mag Hydroxide-Simeth Suspension 225 mg-200 mg-25 mg/5 mL 30 ja5 ml, Lidocaine Liquid 2 % 10 ml, Hyoscyamine Liquid 10 ml) Route: PO; 15:41 Follow up: Response: Pain is resolved dwg 14:48 Drug: ketorolac 30 mg [ketorolac 30 mg/mL (1 mL) injection solution (1 mL)] Route: IVP; ja5 Site: right forearm; Signatures: Dispatcher [employer] Hoang Mccall, RN RN dwChrista Mcdonnell, Hannah Richardson RN RN jc4 Oliva Mcgraw MD MD fg Beck, Gabriela gjb Anderson, Jessica RN ja5 The chart was reviewed and I authenticate all verbal orders and agree with the evaluation and treatment provided.Attachments: 15:23 [facility] Payment Agreement gjb 10/18 10:12 T-Sheet-- Draft Copy gb 10:12 ECG/EKG Chart Complete MTDD
--- NOTE | 2016-10-19 16:59 | EDDOCDS ---
Physician Documentation [facility] Name: Angélica Garibay Age: 46 yrs Sex: Female : 1970 Arrival Date: 10/17/2016 Time: 12:42 Bed TR7 Private MD: Karen Feliciano M. Disposition: 10/17/16 15:00 Discharged to Home/Self Care. Impression: Chest pain, unspecified. - Condition is Stable. - Discharge Instructions: Nonspecific Chest Pain. - Medication Reconciliation, Local Pharmacy Hours form. - Follow up: Karen Feliciano; When: Call to arrange an appointment; Reason: Continuance of care. [facility]; When: Call to arrange an appointment; Reason: Continuance of care. - Problem is new. - Symptoms have improved. Historical: - Allergies: Clindamycin (Rash); Erythromycin (Rash); PENICILLINS (Rash); - Home Meds: 1. Claritin 10 mg Oral tab 1 tab once daily hasnt taken in 2 months (Last dose: Unknown) 2. albuterol sulfate 90 mcg/actuation Inhl HFAA 1 puff every 4 hours as needed (Last dose: Unknown) 3. aspirin 81 mg Oral tab 1 tab once daily (Last dose: 10/16/2016 19:00) 4. aspirin 325 mg Oral TbEC 2 tabs as needed (Last dose: 10/16/2016 19:00) - PMHx: Asthma; Chronic Back pain; Chronic Neck Pain; - PSHx: Biopsy, Breast- Left; Hysterectomy; Cystectomy; - Social history: Smoking status: Patient uses tobacco products, current some day smoker. No barriers to communication noted, The patient speaks fluent Portuguese. - Family history: No immediate family members are acutely ill. - : The pt / caregiver states he / she is not on anticoagulants. Home medication list is obtained from the patient. - Exposure Risk Screening:: None identified. PARKS RECREATION COORDINATOR: 10/17 12:59 LMP N/A - Hysterectomy jc4 Vital Signs: 13:01 BP 120 / 74; Pulse 72; Resp 20; Temp 96.7(O); Pulse Ox 98% on R/A; Weight 70.76 kg / jc4 156 lbs (R); Height 5 ft. 0 in. (152.40 cm); Pain 6/10; 13:45 BP 132 / 80; Pulse 78; Resp 20; Pulse Ox 98% on R/A; dwg 15:40 BP 131 / 74; Pulse 76; Resp 20; Temp 97.1(T); Pulse Ox 99% on R/A; Pain 0/10; dwg 13:01 Body Mass Index 30.47 (70.76 kg, 152.40 cm) jc4 MDM: 12:45 ECG WITH READING ER PHYS+CARDIAG ordered. EDMS 13:15 Aspirin Chewable Tablet 324 mg PO once ordered. fg 13:15 Principal Embedded Software Engineer/Pulse Ox/q 30 min VS ordered. fg 13:15 IV Saline Lock ordered. fg 13:15 Rhythm Strip to chart ordered. fg 13:15 Undress patient appropriately for examination ordered. fg 13:17 portable chest Ordered. EDMS 13:17 B-Type Natiuretic Peptide Ordered. EDMS 13:17 Basic Metabolic Profile Ordered. EDMS 13:17 CBC with Diff Ordered. EDMS 13:17 Cardiac Injury Profile Ordered. EDMS 13:17 Troponin Ordered. EDMS 14:31 ketorolac 30 mg IVP once ordered. fg 14:31 GI Cocktail - (Alum-Mag Hydroxide-Simeth 30 ml, Lidocaine 10 ml, Hyoscyamine 10 ml) PO fg once; Pre-mixed 50mL unit dose ordered. 14:32 REGULAR+DIET ordered. EDMS 15:23 [facility] Payment Agreement was scanned into [employer] and attached to record. [facility] 15:23 Financial registration complete. b 10/18 10:12 T-Sheet-- Draft Copy was scanned into [employer] and attached to record. gb 10:12 ECG/EKG was scanned into [employer] and attached to record. gb Administered Medications: 10/17 13:41 Drug: Aspirin 324 mg [aspirin 81 mg chewable tablet (4 tabs)] Route: PO; dwg 14:47 Drug: GI Cocktail - (Alum-Mag Hydroxide-Simeth Suspension 225 mg-200 mg-25 mg/5 mL 30 ja5 ml, Lidocaine Liquid 2 % 10 ml, Hyoscyamine Liquid 10 ml) Route: PO; 15:41 Follow up: Response: Pain is resolved dwg 14:48 Drug: ketorolac 30 mg [ketorolac 30 mg/mL (1 mL) injection solution (1 mL)] Route: IVP; ja5 Site: right forearm; Signatures: Dispatcher [employer] Hoang Mccall, RN RN dwChrista Mcdonnell, Hannah Richardson RN RN jc4 Oliva Mcgraw MD MD fg Beck, Gabriela gjb Anderson, Jessica RN ja5 The chart was reviewed and I authenticate all verbal orders and agree with the evaluation and treatment provided.Attachments: 15:23 [facility] Payment Agreement gjb 10/18 10:12 T-Sheet-- Draft Copy gb 10:12 ECG/EKG Chart Complete MTDD
--- NOTE | 2016-10-19 16:59 | EDDOCDS ---
Nurse's Notes [facility] Name: Óscar Garibay Age: 46 yrs Sex: Female : 1970 Arrival Date: 10/17/2016 Time: 12:42 Bed TR7 Private MD: Karen Feliciano M. Diagnosis: Chest pain, unspecified Presentation: 10/17 12:44 Presenting complaint: EMS states: were called to [facility] for patient. Patient has had jc4 mid-sternal chest pain since the beginning of the month. Has been seen in this ED for same and went for follow-up appt. Allegedly, patient did not like how her visit was going so she called the police. Transition of care: patient was received from a primary care office; [facility]. 12:44 Method Of Arrival: Ambulance jc4 12:44 Acuity: ILANA Level 3 jc4 12:44 Aspirin was not taken prior to arrival. Suicide/Homicide risk assessment- the patient jc4 denies having any suicidal and/or homicidal ideations and does not present with any other emotional, behavioral or mental health complaints. 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 15:58 Adult Sepsis Screening: The patient does not have new or worsening altered mentation. dwg Patient's respiratory rate is less than 22. Systolic blood pressure is greater than 100. Patient has a qSOFA score of 0- Negative Sepsis Screen. Triage Assessment: 12:57 General: Appears in no apparent distress, Behavior is cooperative. Pain: Pain currently jc4 is 6 out of 10 on a pain scale. HIV screening NA for this visit Offered previously. The patient is triaged at the bedside. See Assessment in Nurses Notes section of ED record. Cardiovascular: Chest pain is described as Pain is 6 out of 10 on a pain scale. is located in substernal area radiates Does not radiate. episodes are intermittent began "beginning of the month" is aggravated by by pressing on area. 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 Claritin 10 mg Oral tab 1 tab once daily hasnt taken in 2 months (Last dose: Unknown) 2. albuterol sulfate 90 mcg/actuation Inhl HFAA 1 puff every 4 hours as needed (Last dose: Unknown) 3. aspirin 81 mg Oral tab 1 tab once daily (Last dose: 10/16/2016 19:00) 4. aspirin 325 mg Oral TbEC 2 tabs as needed (Last dose: 10/16/2016 19:00) - PMHx: Asthma; Chronic Back pain; Chronic Neck Pain; - PSHx: Biopsy, Breast- Left; Hysterectomy; Cystectomy; - Social history: Smoking status: Patient uses tobacco products, current some day smoker. No barriers to communication noted, The patient speaks fluent [place]. - Family history: No immediate family members are acutely ill. - : The pt / caregiver states he / she is not on anticoagulants. Home medication list is obtained from the patient. - Exposure Risk Screening:: None identified. Screenin:41 Screening information is obtained from the patient. Fall risk: No risks identified. dwg Assistance ADL's: requires no assistance with activities of daily living. Abuse/DV Screen: The patient / caregiver reports he/she is: not in a situation that causes fear, pain or injury. Nutritional screening: No deficits noted. Advance Directives: Currently, there is no health care proxy. There is no active DNR order. There is no living will. There is no Power of Icu Clerk. Advance directive information has not previously been placed in an [facility] medical record. Further advance directive information is declined. 15:58 home support is adequate. dwg Assessment: 13:42 General: Appears in no apparent distress, Behavior is cooperative. General: Left side dwg chest pain for 3-4 weeks, no shortness of breath.. Pain: Location: left breast Pain currently is 6 out of 10 on a pain scale. Neurological: Level of Consciousness is awake, alert, Oriented to person, place, time. Cardiovascular: Rhythm is regular. Cardiovascular:. Respiratory: Airway is patent Respiratory effort is even, unlabored, Respiratory pattern is regular, symmetrical, Breath sounds are clear bilaterally. GI: Bowel sounds present X 4 quads. 14:20 General: Dr. Mcgraw in assessing patient. NSR on monitor.. dwg 14:34 General: Appears in no apparent distress, Behavior is cooperative. Pain: Denies pain. dwg Cardiovascular: Rhythm is regular. 15:39 General: Appears in no apparent distress, Behavior is cooperative. Pain: Denies pain. dwg Neurological: Level of Consciousness is awake, alert, Oriented to person, place, time. Cardiovascular: Rhythm is regular. Respiratory: Airway is patent Respiratory effort is even, unlabored, Respiratory pattern is regular, symmetrical. Vital Signs: 13:01 BP 120 / 74; Pulse 72; Resp 20; Temp 96.7(O); Pulse Ox 98% on R/A; Weight 70.76 kg (R); jc4 Height 5 ft. 0 in. (152.40 cm); Pain 6/10; 13:45 BP 132 / 80; Pulse 78; Resp 20; Pulse Ox 98% on R/A; dwg 15:40 BP 131 / 74; Pulse 76; Resp 20; Temp 97.1(T); Pulse Ox 99% on R/A; Pain 0/10; dwg 13:01 Body Mass Index 30.47 (70.76 kg, 152.40 cm) [facility] Vitals: 12:59 Log In Time N/A - ambulance arrival. [facility] ED Course: 12:43 Patient visited by Ken Reilly PCA. jrd 12:43 Janet Watkins RN is Primary Nurse. jrd 12:43 Hannah Willoughby RN is Primary Nurse. jrd 12:43 Patient moved to Waiting jrd 12:43 Patient moved to 11 jrd 12:44 Karen Feliciano is Private Physician. jrd 12:50 Triage Initiated jc4 12:56 Patient visited by Ken Reilly PCA. jrd 12:56 EKG done. (by ED staff). Reviewed by Lainey Ahuja [facility]. jrd 13:12 Primary Nurse role handed off by Hannah Willoughby RN [facility] 13:14 Oliva Mcgraw MD is Attending Physician. fg 13:40 B-Type Natiuretic Peptide Sent. dwg 13:40 Basic Metabolic Profile Sent. dwg 13:40 CBC with Diff Sent. dwg 13:41 Cardiac Injury Profile Sent. dwg 13:41 Troponin Sent. dwg 13:41 Inserted peripheral IV: 20gauge IV in right Wrist. Labs drawn. (by ED staff). Sent per [facility] order to lab. 13:45 Patient visited by Hoang Calderón RN. dw 14:14 Patient visited by Oliva Mcgraw MD. fg 14:28 portable chest Returned. EDMS 14:34 Patient visited by Hoang Calderón, LALA. dwg 15:00 Karen Feliciano is Referral Physician. fg 15:00 [facility] is Referral Physician. fg 15:23 [facility] Payment Agreement was scanned into [employer] and attached to record. gjb 15:37 Patient name changed from Óscar\\S\\Oneyda\\S\\Murry\\S\\ to Óscar\\S\\ \\S\\Murry. EDMS 15:39 Patient name changed from Óscar\\S\\ \\S\\Murry\\S\\ to Óscar\\S\\M\\S\\Garibay. EDMS 15:42 Patient visited by Hoang Calderón RN. dwg 15:45 Patient moved to D1 kp 15:55 Patient moved to TR7 b 15:58 The patient / caregiver is instructed regarding the plan of care and ED course. Cardiac dwg monitor on. Pulse ox on. NIBP on. 15:58 Inserted. No procedures done that require assistance. dwg 10/18 06:54 EKG-ADULT Returned. EDMS 10:12 T-Sheet-- Draft Copy was scanned into [employer] and attached to record. gb 10:12 ECG/EKG was scanned into [employer] and attached to record. gb Administered Medications: 10/17 13:41 Drug: Aspirin 324 mg [aspirin 81 mg chewable tablet (4 tabs)] Route: PO; dwg 14:47 Drug: GI Cocktail - (Alum-Mag Hydroxide-Simeth Suspension 225 mg-200 mg-25 mg/5 mL 30 ja5 ml, Lidocaine Liquid 2 % 10 ml, Hyoscyamine Liquid 10 ml) Route: PO; 15:41 Follow up: Response: Pain is resolved dwg 14:48 Drug: ketorolac 30 mg [ketorolac 30 mg/mL (1 mL) injection solution (1 mL)] Route: IVP; ja5 Site: right forearm; Order Results: Lab Order: B-Type Natiuretic Peptide; SPEC'M 10/17/16 13:36 Test: BRAIN NATRIURETIC PEPTIDE; Value: 51.7; Range: <100; Units: PG/ML; Status: F Lab Order: Basic Metabolic Profile; SPEC'M 10/17/16 13:36 Test: GLUCOSE, FASTING; Value: 95; Range: 70-105; Units: MG/DL; Status: F Test: BLOOD UREA NITROGEN; Value: 7; Range: 7-18; Units: MG/DL; Status: F Test: CREATININE FOR GFR; Value: 0.76; Range: 0.55-1.02; Units: MG/DL; Status: F Test: GLOMERULAR FILTRATION RATE; Value: > 60.0; Range: >58; Status: F Test: SODIUM LEVEL; Value: 141; Range: 136-145; Units: MEQ/L; Status: F Test: POTASSIUM SERUM; Value: 4.2; Range: 3.5-5.1; Units: MEQ/L; Status: F Test: CHLORIDE LEVEL; Value: 106; Range: 98-107; Units: MEQ/L; Status: F Test: CARBON DIOXIDE LEVEL; Value: 26; Range: 21-32; Units: MEQ/L; Status: F Test: ANION GAP; Value: 9; Range: 8-16; Units: MEQ/L; Status: F Test: CALCIUM LEVEL; Value: 8.8; Range: 8.5-10.1; Units: MG/DL; Status: F Test Note: ; Units are mL/min/1.73 m2 Chronic Kidney Disease Staging per NKF: Stage I & II GFR >=60 Normal to Mildly Decreased Stage III GFR 30-59 Moderately Decreased Stage IV GFR 15-29 Severely Decreased Stage V GFR <15 Very Little GFR Left ESRD GFR <15 on PATIENT CONSUMER MARKETER Lab Order: CBC with Diff; SPEC'M 10/17/16 13:36 Test: WHITE BLOOD COUNT; Value: 8.2; Range: 4.0-10.0; Units: K/mm3; Status: F Test: RED BLOOD COUNT; Value: 4.53; Range: 4.00-5.40; Units: M/mm3; Status: F Test: HEMOGLOBIN; Value: 14.1; Range: 12.0-16.0; Units: g/dl; Status: F Test: HEMATOCRIT; Value: 42.6; Range: 36.0-47.0; Units: %; Status: F Test: MEAN CORPUSCULAR VOLUME; Value: 94.0; Range: 80.0-96.0; Units: fl; Status: F Test: MEAN CORPUSCULAR HEMOGLOBIN; Value: 31.2; Range: 27.0-33.0; Units: pg; Status: F Test: MEAN CORPUSCULAR HGB CONC; Value: 33.2; Range: 32.0-36.5; Units: g/dl; Status: F Test: RED CELL DISTRIBUTION WIDTH; Value: 12.6; Range: 11.5-14.5; Units: %; Status: F Test: PLATELET COUNT, AUTOMATED; Value: 341; Range: 150-450; Units: k/mm3; Status: F Test: NEUTROPHILS %; Value: 60.5; Range: 36.0-66.0; Units: %; Status: F Test: LYMPH %; Value: 29.6; Range: 24.0-44.0; Units: %; Status: F Test: MONO %; Value: 6.0; Range: 0.0-5.0; Abnormal: Above high normal; Units: %; Status: F Test: EOS %; Value: 1.7; Range: 0.0-3.0; Units: %; Status: F Test: BASO %; Value: 0.5; Range: 0.0-1.0; Units: %; Status: F Test: LARGE UNSTAINED CELL %; Value: 1.7; Range: 0.0-4.0; Units: %; Status: F Test: NEUTROPHILS #; Value: 4.9; Range: 1.8-7.7; Units: K/mm3; Status: F Test: LYMPH #; Value: 2.4; Range: 1.5-4.5; Units: K/mm3; Status: F Test: MONO #; Value: 0.5; Range: 0.0-0.8; Units: K/mm3; Status: F Test: EOS #; Value: 0.1; Range: 0.0-0.50; Units: K/mm3; Status: F Test: BASO #; Value: 0.0; Range: 0.0-0.2; Units: K/mm3; Status: F Test: LARGE UNSTAINED CELL #; Value: 0.1; Range: 0.0-0.4; Units: K/mm3; Status: F Lab Order: Cardiac Injury Profile; SPEC'M 10/17/16 13:36 Test: CPK CREATINE PHOSPHOKINASE; Value: 104; Range: 26-192; Units: U/L; Status: F Test: CK-MB VALUE MASS; Value: 1.2; Range: 0.0-3.6; Units: NG/ML; Status: F Test: MB/CK RELATIVE INDEX; Value: 1.15; Range: < OR =4; Status: F Test Note: ; DIAGNOSIS CRITERIA MMB ng/ml Relative Index (RI) NON-AMI < or = 5 N/A HUANG ZONE > 5 < or = 4 AMI > 5 > 4 Lab Order: Troponin; SPEC'M 10/17/16 13:36 Test: TROPONIN I; Value: < 0.02; Range: < 0.10; Units: NG/ML; Status: F Test Note: ; Troponin I Reference Interval for [place] [facility] LOCI: 99th Percentile= 0.00-0.045 ng/ml Risk Stratification: <= 0.10 ng/ml Decreased Risk for Adverse Clinical Events. 0.10-1.50 ng/ml Increased Risk for Adverse Clinical Events. Evaluation of additional criterion and/or repeat testing in 2-6 hours is suggested to rule out myocardial damage. >= 1.50 ng/ml Indicative of Myocardial Injury. 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 The heart is normal in size. The pulmonary vasculature is; normal in appearance.; ; Impression: No acute disease.; ; ; Signed by; Waylon Arteaga MD 10/17/2016 01:58 P; Outcome: 15:00 Discharge ordered by Provider. fg 15:57 Discharge Assessment: Patient awake, alert and oriented x 3. No cognitive and/or dwg functional deficits noted. Patient verbalized understanding of disposition instructions. patient administered narcotics - no. The following High Risk Discharge criteria are identified: None. Discharged to home ambulatory. Condition: good Condition: stable Condition: improved. No special radiology studies were completed. Property sent home with patient. 15:58 Patient left the ED. dwg Signatures: Dispatcher [employer] EDHoang Jensen, RN RN Luzma Corral, RN RN Christa Covington, Hannah Richardson, RN RN jc4 Gurinder Simpson,RN RN Ken Song, GLENYS ENGINE SPECIALIST Oliva Garcia MD MD fg Beck, Gabriela gjb Anderson, Jessica,RN RN ja5 Chart Complete PATTIE
== END 2016-10-17 15:58 | disposition home or self-care (01) ==
LOC: M ED 12:42
DX: R07.9 Chest pain, unspecified (principal); R06.02 Shortness of breath; M54.9 Dorsalgia, unspecified; G89.29 Other chronic pain; Z79.82 Long term (current) use of aspirin; Z88.0 Allergy status to penicillin; Z88.1 Allergy status to other antibiotic agents; F17.210 Nicotine dependence, cigarettes, uncomplicated
CPT/HCPCS: 36415; 71010; 80048; 82550; 82553; 83880; 85025; 93005; 93041; 96374; 99284; J1885

== ENCOUNTER → 2016-10-30 | Outpatient (CLI) | payer OTHER ==
[2016-10-30 10:21] LABS: ANION GAP 8 MEQ/L (8-16); BLOOD UREA NITROGEN 8 MG/DL (7-18); CALCIUM LEVEL 8.9 MG/DL (8.5-10.1); CARBON DIOXIDE LEVEL 29 MEQ/L (21-32); CHLORIDE LEVEL 105 MEQ/L (98-107); CREATININE FOR GFR 0.88 MG/DL (0.55-1.02); GLOMERULAR FILTRATION RATE > 60.0 (>58); GLUCOSE, FASTING 98 MG/DL (70-105); POTASSIUM SERUM 4.3 MEQ/L (3.5-5.1); SODIUM LEVEL 142 MEQ/L (136-145)
== END ==
LOC: M LAB 09:25
PROVIDERS: ATTEND Family Medicine
DX: E66.9 Obesity, unspecified (principal); J45.40 Moderate persistent asthma, uncomplicated

== ENCOUNTER 2017-03-08 13:18 | Emergency (ER) | payer OTHER ==
[~2017-03-08] VITALS: Ht 152.4 cm; Wt 76.6 kg
[~2017-03-08 13:18] MED LIST changes: -NAPR500T2 PO; +NAPR500T3 PO
[2017-03-08] MEDS ORDERED: VITA100054 (13:40)
[2017-03-08] MEDS ORDERED: TRAZ50TA11 (13:40)
[2017-03-08] MEDS ORDERED: ASPI1TAB15 (13:40)
[2017-03-08] MEDS ORDERED: ALBU17IN (13:40)
[2017-03-08] MEDS ORDERED: ASMA16.7 (13:40)
[2017-03-08] MEDS ORDERED: LORA10TA2 (13:40)
[2017-03-08] MEDS ORDERED: PRED10TA2 PO (14:31)
[2017-03-08 14:56] LABS: BASO % 0.6 % (0.0-1.0); EOS # 0.2 K/mm3 (0.0-0.50); EOS % 2.3 % (0.0-3.0); LARGE UNSTAINED CELL # 0.1 K/mm3 (0.0-0.4); LARGE UNSTAINED CELL % 1.3 % (0.0-4.0); LYMPH # 2.3 K/mm3 (1.5-4.5); LYMPH % 26.3 % (24.0-44.0); MEAN CORPUSCULAR HEMOGLOBIN 31.1 pg (27.0-33.0); MEAN CORPUSCULAR HGB CONC 32.9 g/dl (32.0-36.5); MEAN CORPUSCULAR VOLUME 94.6 fl (80.0-96.0); MONO # 0.4 K/mm3 (0.0-0.8); MONO % 4.8 % (0.0-5.0); NEUTROPHILS # 5.4 K/mm3 (1.8-7.7); NEUTROPHILS % 64.7 % (36.0-66.0); PLATELET COUNT, AUTOMATED 343 k/mm3 (150-450); RED CELL DISTRIBUTION WIDTH 13.5 % (11.5-14.5); WHITE BLOOD COUNT 8.4 K/mm3 (4.0-10.0)
[2017-03-08 15:02] VITALS: BP 138/76
[2017-03-08 16:35] LABS: ERYTHROCYTE SEDIMENTATION RATE 13 mm/hr (0-20)
[2017-03-12 00:06] LABS: Lyme Disease IgG/IgM Antibodie <0.91 ISR (0.00-0.90); Lyme Disease IgM Ab Quantitati <0.80 index (0.00-0.79)
== END 2017-03-08 15:03 | disposition home or self-care (01) ==
LOC: M ED 14:39
DX: R21 Rash and other nonspecific skin eruption (principal); J45.909 Unspecified asthma, uncomplicated

== ENCOUNTER 2017-07-19 12:12 | Outpatient (RCR) | payer OTHER ==
[~2017-07-19 12:12] MED LIST changes: +ALBU17IN; +ASMA16.7; +ASPI1TAB15; +LORA10TA2; +PRED10TA2 PO; +TRAZ50TA11; +VITA100054
[2017-07-19] MEDS ORDERED: ASMA220A IN (15:00)
[2017-07-19] MEDS ORDERED: IBUP200C10 PO (15:00)
[2017-07-19] MEDS ORDERED: VENTAER IN (15:00)
[2017-07-19] MEDS ORDERED: NEXI20CA PO (15:00)
[2017-07-19] MEDS ORDERED: CYCL5TAB PO (15:00)
[2017-07-19] MEDS ORDERED: CLAR10CA3 PO (15:00)
[2017-07-19] MEDS ORDERED: ASPI81TA85 PO (15:00)
[2017-07-19] MEDS ORDERED: TRAZ50TA11 PO (15:00)
== END 2017-07-23 ==
LOC: M PT 12:12
PROVIDERS: ATTEND Family Medicine
DX: Z51.89 Encounter for other specified aftercare (principal); M54.2 Cervicalgia

== ENCOUNTER 2017-08-19 12:27 | Outpatient (RCR) | payer OTHER ==
[~2017-08-19 12:27] MED LIST changes: +ASMA220A IN; +ASPI81TA85 PO; +CLAR10CA3 PO; +CYCL5TAB PO; +IBUP200C10 PO; +NEXI20CA PO; +TRAZ50TA11 PO; +VENTAER IN
[2017-08-22] MEDS ORDERED: CYCL10TA PO (15:48)
== END 2017-08-22 ==
LOC: M PT 12:27
PROVIDERS: ATTEND Family Medicine
DX: Z51.89 Encounter for other specified aftercare (principal); M54.2 Cervicalgia

== ENCOUNTER 2017-08-22 14:26 | Emergency (ER) | payer OTHER ==
[~2017-08-22] VITALS: Ht 152.4 cm; Wt 79.5 kg
[2017-08-22] MEDS ORDERED: CYCL10TA PO (15:48)
== END 2017-08-22 16:03 | disposition home or self-care (01) ==
LOC: M ED 14:26
DX: S16.1XXA Strain of muscle, fascia and tendon at neck level, initial encounter (principal); X58.XXXA Exposure to other specified factors, initial encounter; Y92.89 Other specified places as the place of occurrence of the external cause; Y93.89 Activity, other specified; Y99.8 Other external cause status; Z76.0 Encounter for issue of repeat prescription; F41.9 Anxiety disorder, unspecified; F32.9 Major depressive disorder, single episode, unspecified; Z79.899 Other long term (current) drug therapy; Z79.82 Long term (current) use of aspirin; Z79.51 Long term (current) use of inhaled steroids; Z88.1 Allergy status to other antibiotic agents; Z88.0 Allergy status to penicillin

== ENCOUNTER 2017-09-02 14:55 | Outpatient (RCR) | payer OTHER | END 2017-09-22 | LOC: M PT 14:55 | DX: Z51.89 Encounter for other specified aftercare (principal); M54.2 Cervicalgia | CPT/HCPCS: 97110 ==

== ENCOUNTER 2018-01-13 10:39 | Inpatient (IN) | payer MEDICAID, OTHER ==
[2018-01-13 12:15] LABS: HEMATOCRIT 40.4 % (36.0-47.0); HEMOGLOBIN 13.2 g/dl (12.0-15.5); MEAN CORPUSCULAR HEMOGLOBIN 30.1 pg (27.0-33.0); MEAN CORPUSCULAR HGB CONC 32.7 g/dl (32.0-36.5); MEAN CORPUSCULAR VOLUME 92.2 fl (80.0-96.0); PLATELET COUNT, AUTOMATED 307 10^3/uL (150-450); RED BLOOD COUNT 4.38 10^6/uL (4.00-5.40); RED CELL DISTRIBUTION WIDTH 13.6 % (11.5-14.5); WHITE BLOOD COUNT 6.5 10^3/uL (4.0-10.0)
[2018-01-13 12:48] LABS: CONTROL LINE HCG INT CTR LINE PRESENT; HCG, SERUM QUALITATIVE NEGATIVE (NEGATIVE)
[2018-01-13 13:02] LABS: AMPHETAMINES LEVEL URINE NEGATIVE (NEGATIVE); BARBITURATES URINE NEGATIVE (NEGATIVE); BENZODIAZEPINES URINE NEGATIVE (NEGATIVE); CANNABINOIDS URINE NEGATIVE (NEGATIVE); COCAINE METABOLITE URINE NEGATIVE (NEGATIVE); METHADONE URINE NEGATIVE (NEGATIVE); OPIATES URINE POSITIVE (NEGATIVE); PHENCYCLIDINE URINE NEGATIVE (NEGATIVE)
[2018-01-13 13:05] LABS: ACETAMINOPHEN LEVEL < 2.0 UG/ML (10.0-30.0); ALBUMIN 3.2 GM/DL (3.2-5.2); ALBUMIN/GLOBULIN RATIO 0.89 (1.00-1.93); ALKALINE PHOSPHATASE 86 U/L (45-117); ALT/SGPT 40 U/L (12-78); ANION GAP 7 MEQ/L (8-16); AST/SGOT 19 U/L (7-37); BILIRUBIN,DIRECT < 0.1 MG/DL (0.0-0.2); BILIRUBIN,TOTAL 0.4 MG/DL (0.2-1.0); BLOOD UREA NITROGEN 10 MG/DL (7-18); CALCIUM LEVEL 8.5 MG/DL (8.5-10.1); CARBON DIOXIDE LEVEL 25 MEQ/L (21-32); CHLORIDE LEVEL 106 MEQ/L (98-107); ETHYL ALCOHOL (ETHANOL) < 0.003 % (0.000-0.010); GLOMERULAR FILTRATION RATE > 60.0 (>58); GLUCOSE, FASTING 88 MG/DL (70-100); POTASSIUM SERUM 3.9 MEQ/L (3.5-5.1); SALICYLATE LEVEL < 1.7 MG/DL (5.0-30.0); SODIUM LEVEL 138 MEQ/L (136-145); THYROID STIMULATING HORMONE 0.947 uIU/ML (0.358-3.740); TOTAL PROTEIN 6.8 GM/DL (6.4-8.2)
[2018-01-13] MEDS ORDERED: MAALOX 30 ML SUSP *UDC PO (14:15)
[2018-01-13] MEDS ORDERED: traZODone 50 MG TAB PO (14:15)
[2018-01-13] MEDS ORDERED: MOM 30ML SUSPENSION UDC PO (14:15)
[2018-01-13] MEDS ORDERED: ALBUTEROL 90 MCG/ACT 8GM HFA INHALER INH (15:00)
[2018-01-13] MEDS: FLUoxetine 10 MG CAP PO (20:38)
[2018-01-13] MEDS: FAMOTIDINE 20 MG TAB PO (20:38)
[2018-01-13] MEDS: PANTOPRAZOLE 20 MG TAB PO (20:38)
[2018-01-13] MEDS: LevoFLOXacin 750 MG TABLET PO (20:38)
[2018-01-13] MEDS: diphenhydrAMINE 50 MG CAP PO (20:39)
[2018-01-13] MEDS: ASPIRIN 325 MG TAB PO (20:39)
[2018-01-13] MEDS: LORATADINE 10 MG TAB PO (20:39)
[2018-01-13] MEDS: traZODone 50 MG TAB PO (20:39)
[2018-01-14] MEDS: FLUTICASONE HFA 110 MCG 12 GM INHALER (FLOVENT) INH ×2 (09:00→20:04)
[2018-01-14] MEDS ORDERED: hydrOXYzine 25 MG TAB PO (12:00)
[2018-01-14] MEDS: FAMOTIDINE 20 MG TAB PO (20:06)
[2018-01-14] MEDS: ACETAMINOPHEN TAB 650MG DOSE (2X325MG) PO (20:06)
[2018-01-14] MEDS: MIRTAZAPINE 15 MG TAB PO (20:06)
[2018-01-14] MEDS: LORATADINE 10 MG TAB PO (20:06)
[2018-01-14] MEDS: ASPIRIN 325 MG TAB PO (20:06)
[2018-01-14] MEDS: diphenhydrAMINE 50 MG CAP PO (20:06)
[2018-01-14] MEDS: LevoFLOXacin 750 MG TABLET PO (20:06)
[2018-01-14] MEDS: traZODone 50 MG TAB PO (20:06)
[2018-01-14] MEDS: PANTOPRAZOLE 20 MG TAB PO (20:06)
[2018-01-15] MEDS: FLUTICASONE HFA 110 MCG 12 GM INHALER (FLOVENT) INH ×2 (10:53→21:06)
[2018-01-15] MEDS: LevoFLOXacin 750 MG TABLET PO (21:05)
[2018-01-15] MEDS: diphenhydrAMINE 50 MG CAP PO (21:06)
[2018-01-15] MEDS: ASPIRIN 325 MG TAB PO (21:06)
[2018-01-15] MEDS: LORATADINE 10 MG TAB PO (21:06)
[2018-01-15] MEDS: traZODone 50 MG TAB PO (21:06)
[2018-01-15] MEDS: MIRTAZAPINE 15 MG TAB PO (21:06)
[2018-01-15] MEDS: PANTOPRAZOLE 20 MG TAB PO (21:06)
[2018-01-15] MEDS: FAMOTIDINE 20 MG TAB PO (21:06)
[2018-01-15] MEDS: IBUPROFEN 600 MG TAB PO (21:37)
[2018-01-16] MEDS: FLUTICASONE HFA 110 MCG 12 GM INHALER (FLOVENT) INH (09:04)
== END 2018-01-16 13:50 | disposition home or self-care (01) | DRG 885 ==
LOC: M ED 10:39 → M ED INP 14:09 → M PSY 01-14 09:42
DX: F33.1 Major depressive disorder, recurrent, moderate (principal); J45.909 Unspecified asthma, uncomplicated; F51.04 Psychophysiologic insomnia; M54.2 Cervicalgia; K21.9 Gastro-esophageal reflux disease without esophagitis; L30.9 Dermatitis, unspecified; F81.9 Developmental disorder of scholastic skills, unspecified; E55.9 Vitamin D deficiency, unspecified; Z62.810 Personal history of physical and sexual abuse in childhood; Z62.811 Personal history of psychological abuse in childhood; Z88.0 Allergy status to penicillin; Z79.82 Long term (current) use of aspirin; Z88.1 Allergy status to other antibiotic agents; Z87.891 Personal history of nicotine dependence; Z79.899 Other long term (current) drug therapy; Z56.0 Unemployment, unspecified; Z59.9 Problem related to housing and economic circumstances, unspecified

== ENCOUNTER 2018-04-21 10:58 | Emergency (ER) | payer OTHER, MEDICAID | END 2018-04-21 13:42 | disposition home or self-care (01) | LOC: M ED 10:58 | DX: L25.9 Unspecified contact dermatitis, unspecified cause (principal); Z76.0 Encounter for issue of repeat prescription; K21.9 Gastro-esophageal reflux disease without esophagitis; J45.909 Unspecified asthma, uncomplicated; M54.9 Dorsalgia, unspecified; F41.9 Anxiety disorder, unspecified; F32.9 Major depressive disorder, single episode, unspecified; R29.818 Other symptoms and signs involving the nervous system; Z88.1 Allergy status to other antibiotic agents; Z88.0 Allergy status to penicillin; Z79.899 Other long term (current) drug therapy; Z79.51 Long term (current) use of inhaled steroids; Z79.82 Long term (current) use of aspirin | CPT/HCPCS: 99283 ==

== ENCOUNTER → 2018-06-19 | Outpatient (CLI) | payer OTHER ==
[2018-06-19 09:55] LABS: BASO % 0.5 % (0.0-1.0); EOS # 0.2 10^3/uL (0.0-0.50); HEMATOCRIT 42.9 % (36.0-47.0); HEMOGLOBIN 14.1 g/dl (12.0-15.5); IMMATURE GRANULOCYTE % 0.2 % (0-3.0); LYMPH # 1.9 10^3/uL (1.5-4.5); LYMPH % 34.6 % (24.0-44.0); MEAN CORPUSCULAR HEMOGLOBIN 30.3 pg (27.0-33.0); MEAN CORPUSCULAR HGB CONC 32.9 g/dl (32.0-36.5); MEAN CORPUSCULAR VOLUME 92.1 fl (80.0-96.0); MONO # 0.4 10^3/uL (0.0-0.8); MONO % 7.5 % (0.0-5.0); NEUTROPHILS % 54.2 % (36.0-66.0); PLATELET COUNT, AUTOMATED 325 10^3/uL (150-450); RED BLOOD COUNT 4.66 10^6/uL (4.00-5.40); RED CELL DISTRIBUTION WIDTH 13.1 % (11.5-14.5); WHITE BLOOD COUNT 5.6 10^3/uL (4.0-10.0)
[2018-06-19 10:16] LABS: ESTIMATED AVERAGE GLUCOSE 131 MG/DL (60-110); HEMOGLOBIN A1c 6.2 %
[2018-06-19 10:41] LABS: ALBUMIN 3.5 GM/DL (3.2-5.2); ALBUMIN/GLOBULIN RATIO 1.13 (1.00-1.93); ALKALINE PHOSPHATASE 88 U/L (45-117); ALT/SGPT 102 U/L (12-78); ANION GAP 8 MEQ/L (8-16); AST/SGOT 34 U/L (7-37); BILIRUBIN,TOTAL 0.5 MG/DL (0.2-1.0); BLOOD UREA NITROGEN 10 MG/DL (7-18); CALCIUM LEVEL 9.1 MG/DL (8.5-10.1); CARBON DIOXIDE LEVEL 28 MEQ/L (21-32); CHLORIDE LEVEL 105 MEQ/L (98-107); CHOLESTEROL LEVEL 234 MG/DL (<200); CHOLESTEROL RISK RATIO 4.034 (<5); CREATININE FOR GFR 0.79 MG/DL (0.55-1.30); GLOMERULAR FILTRATION RATE > 60.0 (>58); GLUCOSE, FASTING 112 MG/DL (70-100); HDL CHOLESTEROL 58 MG/DL (>40); LDL CHOLESTEROL 141 MG/DL (<100); NON-HDL-C 176 MG/DL; POTASSIUM SERUM 4.4 MEQ/L (3.5-5.1); SODIUM LEVEL 141 MEQ/L (136-145); THYROID STIMULATING HORMONE 0.843 uIU/ML (0.358-3.740); TOTAL PROTEIN 6.6 GM/DL (6.4-8.2); TRIGLYCERIDES LEVEL 173 MG/DL (<150)
== END ==
LOC: M LAB 09:12
DX: R60.0 Localized edema (principal)
CPT/HCPCS: 84443

== ENCOUNTER 2018-07-09 10:24 | Emergency (ER) | payer OTHER | END 2018-07-09 11:41 | disposition home or self-care (01) | LOC: M ED 10:24 | DX: L20.9 Atopic dermatitis, unspecified (principal) | CPT/HCPCS: 99282 ==

== ENCOUNTER 2018-07-29 10:22 | Emergency (ER) | payer OTHER | END 2018-07-29 11:21 | disposition home or self-care (01) | LOC: M ED 10:22 | DX: L01.00 Impetigo, unspecified (principal); J45.909 Unspecified asthma, uncomplicated; K21.9 Gastro-esophageal reflux disease without esophagitis; F33.9 Major depressive disorder, recurrent, unspecified; F41.9 Anxiety disorder, unspecified; Z88.1 Allergy status to other antibiotic agents; Z88.0 Allergy status to penicillin | CPT/HCPCS: 99282 ==

== ENCOUNTER 2018-08-04 09:45 | Emergency (ER) | payer OTHER ==
[2018-08-04 10:52] LABS: BASO % 0.3 % (0.0-1.0); EOS # 0.1 10^3/uL (0.0-0.50); EOS % 1.9 % (0.0-3.0); HEMATOCRIT 44.4 % (36.0-47.0); HEMOGLOBIN 14.6 g/dl (12.0-15.5); IMMATURE GRANULOCYTE % 0.2 % (0-3.0); LYMPH # 2.2 10^3/uL (1.5-4.5); LYMPH % 36.2 % (24.0-44.0); MEAN CORPUSCULAR HEMOGLOBIN 31.1 pg (27.0-33.0); MEAN CORPUSCULAR HGB CONC 32.9 g/dl (32.0-36.5); MEAN CORPUSCULAR VOLUME 94.5 fl (80.0-96.0); MONO # 0.5 10^3/uL (0.0-0.8); MONO % 7.9 % (0.0-5.0); NEUTROPHILS # 3.3 10^3/uL (1.8-7.7); NEUTROPHILS % 53.5 % (36.0-66.0); PLATELET COUNT, AUTOMATED 371 10^3/uL (150-450); WHITE BLOOD COUNT 6.2 10^3/uL (4.0-10.0)
[2018-08-04 11:19] LABS: ALBUMIN 3.7 GM/DL (3.2-5.2); ALBUMIN/GLOBULIN RATIO 1.09 (1.00-1.93); ALKALINE PHOSPHATASE 103 U/L (45-117); ALT/SGPT 62 U/L (12-78); ANION GAP 6 MEQ/L (8-16); AST/SGOT 30 U/L (7-37); BILIRUBIN,TOTAL 0.5 MG/DL (0.2-1.0); BLOOD UREA NITROGEN 11 MG/DL (7-18); CALCIUM LEVEL 8.9 MG/DL (8.5-10.1); CARBON DIOXIDE LEVEL 27 MEQ/L (21-32); CHLORIDE LEVEL 106 MEQ/L (98-107); CREATININE FOR GFR 0.96 MG/DL (0.55-1.30); GLOMERULAR FILTRATION RATE > 60.0 (>51); GLUCOSE, FASTING 103 MG/DL (70-100); POTASSIUM SERUM 4.4 MEQ/L (3.5-5.1); SODIUM LEVEL 139 MEQ/L (136-145); TOTAL PROTEIN 7.1 GM/DL (6.4-8.2)
[2018-08-04 14:31] LABS: ESTIMATED AVERAGE GLUCOSE 126 MG/DL (60-110)
== END 2018-08-04 13:08 | disposition home or self-care (01) ==
LOC: M ED 09:45
DX: L30.4 Erythema intertrigo (principal); L20.9 Atopic dermatitis, unspecified; E11.9 Type 2 diabetes mellitus without complications; J45.909 Unspecified asthma, uncomplicated; M54.2 Cervicalgia; M54.9 Dorsalgia, unspecified; K21.9 Gastro-esophageal reflux disease without esophagitis; Z79.82 Long term (current) use of aspirin; Z79.899 Other long term (current) drug therapy; Z88.1 Allergy status to other antibiotic agents; Z88.0 Allergy status to penicillin
CPT/HCPCS: 80053

== ENCOUNTER 2018-08-19 12:46 | Emergency (ER) | payer OTHER | END 2018-08-19 13:16 | disposition home or self-care (01) | LOC: M ED 12:46 | DX: B35.4 Tinea corporis (principal); E11.9 Type 2 diabetes mellitus without complications; K21.9 Gastro-esophageal reflux disease without esophagitis; I25.2 Old myocardial infarction; Z87.891 Personal history of nicotine dependence; Z88.1 Allergy status to other antibiotic agents; Z88.0 Allergy status to penicillin; Z79.899 Other long term (current) drug therapy; Z79.82 Long term (current) use of aspirin | CPT/HCPCS: 99282 ==

== ENCOUNTER 2018-10-06 12:52 | Emergency (ER) | payer OTHER ==
[~2018-10-06] VITALS: Ht 152.4 cm; Wt 83.2 kg
[~2018-10-06 12:52] MED LIST changes: +ARIP5TA PO; -ASMA220A IN; +ASMA220A INH; +ASPI325T PO; +BENA25TA10 PO; +CLOB05OI TOP; +CYCL10TA PO; +FEXO180T58 PO; +FLUC100T; +FLUO10CA8 PO; +FLUO1TAB3 PO; +HYDR-3363 PO; +HYDR12.55 PO; -IBUP200C10 PO; +IBUP200C25 PO; +LEVO750T13 PO; +LORA-243; -LORA10TA2; +LORA10TA3 PO; +LOTR2AER3 EX; +MIRT15TA3 PO; +NAPR-885 PO; -NAPR500T3 PO; +NYST10CR; +NYST10CR TOP; +NYST1POW9 TOP; +PRED20TA PO; +PROC2.5C3; +TRAZ-160; +TRAZ-160 PO; -TRAZ50TA11; -TRAZ50TA11 PO; +TRIA1CR80 TOP; +TRIA25CR TOP; -VENTAER IN; +VENTAER INH; +ZANT150T15 PO
[2018-10-06 12:53] VITALS: BP 123/70
--- NOTE | 2018-10-06 14:07 | REP ---
Chest x-ray: Two views: History: Pain. Comparison study: October 17, 2016. Findings: Clothing or hair artifact overlies the chest bilaterally. The lungs are symmetrically aerated and free of infiltrate. Heart is not enlarged. Pulmonary vasculature is not increased. No significant bony abnormality is seen. Impression: Clothing or hair artifact overlies the chest. Otherwise no active disease. Electronically Signed by Girma Reina MD 10/06/2018 08:17 P
[2018-10-06] MEDS ORDERED: METF-723 OR (15:42)
[2018-10-06] MEDS ORDERED: NEXI20CA OR (15:42)
== END 2018-10-06 16:14 | disposition home or self-care (01) ==
LOC: M ED 12:52
DX: R07.1 Chest pain on breathing (principal); E11.9 Type 2 diabetes mellitus without complications

== ENCOUNTER 2018-12-01 11:06 | Emergency (ER) | payer OTHER ==
[~2018-12-01] VITALS: Ht 152.4 cm; Wt 84.5 kg
[~2018-12-01 11:06] MED LIST changes: +METF-723 OR; +NEXI20CA OR
[2018-12-01] MEDS ORDERED: FLUO20CA8 PO (11:30)
[2018-12-01] MEDS ORDERED: BUPR50TA PO (11:30)
[2018-12-01] MEDS ORDERED: BUPR1TAB56 PO (11:34)
[2018-12-01] MEDS ORDERED: KETOROLAC TROMETHAMINE 10 MG TAB PO ONE (12:00)
[2018-12-01] MEDS ORDERED: LIDO5DIS41 TD (13:03)
[2018-12-01] MEDS ORDERED: KETO10TAB PO (13:03)
[2018-12-01] MEDS ORDERED: ROBA500T PO (13:04)
[2018-12-01 13:19] VITALS: BP 130/68
--- NOTE | 2018-12-01 13:36 | REP ---
CERVICAL SPINE, EIGHT VIEWS: HISTORY: Neck pain. COMPARISON: 09/04/2016. The cervical spine is visualized from C1 to the C5-6 level in the lateral radiographs. There is no acute fracture or subluxation. The C4-5 and C5-6 intervertebral discs are decreased in height consistent with disc degeneration. Osteophytes are present on C4-6. There is narrowing of the right C5 and left C6 neural foramina secondary to uncinate process hypertrophy. The remaining neural foramina are patent. IMPRESSION: Degenerative change as described above. Electronically Signed by Waylon Arteaga MD 12/01/2018 01:50 P
--- NOTE | 2018-12-01 13:52 | REP ---
RIGHT SHOULDER, THREE VIEWS: HISTORY: Pain. There is no acute fracture or dislocation. The glenohumeral joint space is normal in appearance. There is minimal narrowing of the acromioclavicular joint space. IMPRESSION: Degenerative change as described above. Electronically Signed by Waylon Arteaga MD 12/01/2018 02:02 P
== END 2018-12-01 13:21 | disposition home or self-care (01) ==
LOC: M ED 11:06 → EDBD 11:06 → M ED 13:21
DX: M47.892 Other spondylosis, cervical region (principal); M19.011 Primary osteoarthritis, right shoulder; M62.838 Other muscle spasm; E11.9 Type 2 diabetes mellitus without complications; Z79.84 Long term (current) use of oral hypoglycemic drugs; Z79.899 Other long term (current) drug therapy; Z87.39 Personal history of other diseases of the musculoskeletal system and connective tissue; Z88.1 Allergy status to other antibiotic agents; Z88.0 Allergy status to penicillin

== ENCOUNTER 2019-01-19 12:05 | Inpatient (IN) | payer MEDICAID, OTHER ==
[~2019-01-19] VITALS: Ht 152.4 cm; Wt 82.1 kg
[~2019-01-19 12:05] MED LIST changes: -/ESOM40CA OR; +ALBU83IN INH; +ARIP1TAB6 PO; -ARIP5TA PO; +ASPI-1 PO; -ASPI325T PO; +BUPR1TAB56 PO; +BUPR50TA PO; +ESOM20CA25 PO; +FLUO20CA8 PO; +KETO10TAB PO; +LIDO5DIS41 TD; -METF-723 OR; +METF-723 PO; +NEXI1CAP3 OR; +[UNRECOGNIZED DRUG - CODE] EX
[2019-01-19] MEDS ORDERED: SIMV20TA2 PO (12:23)
[2019-01-19 13:09] LABS: HEMATOCRIT 42.9 % (36.0-47.0); HEMOGLOBIN 13.7 g/dl (12.0-15.5); MEAN CORPUSCULAR HEMOGLOBIN 30.6 pg (27.0-33.0); MEAN CORPUSCULAR HGB CONC 31.9 g/dl (32.0-36.5); MEAN CORPUSCULAR VOLUME 95.8 fl (80.0-96.0); PLATELET COUNT, AUTOMATED 356 10^3/uL (150-450); RED BLOOD COUNT 4.48 10^6/uL (4.00-5.40); WHITE BLOOD COUNT 7.4 10^3/uL (4.0-10.0)
[2019-01-19 13:46] LABS: AMPHETAMINES LEVEL URINE NEGATIVE (NEGATIVE); BARBITURATES URINE NEGATIVE (NEGATIVE); BENZODIAZEPINES URINE NEGATIVE (NEGATIVE); CANNABINOIDS URINE NEGATIVE (NEGATIVE); COCAINE METABOLITE URINE NEGATIVE (NEGATIVE); METHADONE URINE NEGATIVE (NEGATIVE); OPIATES URINE NEGATIVE (NEGATIVE); PHENCYCLIDINE URINE NEGATIVE (NEGATIVE)
[2019-01-19 13:50] LABS: ACETAMINOPHEN LEVEL < 2.0 UG/ML (10.0-30.0); ALBUMIN 3.6 GM/DL (3.2-5.2); ALT/SGPT 51 U/L (12-78); BILIRUBIN,DIRECT < 0.1 MG/DL (0.0-0.2); BILIRUBIN,TOTAL 0.5 MG/DL (0.2-1.0); BLOOD UREA NITROGEN 9 MG/DL (7-18); CALCIUM LEVEL 8.9 MG/DL (8.5-10.1); CARBON DIOXIDE LEVEL 30 MEQ/L (21-32); CHLORIDE LEVEL 105 MEQ/L (98-107); CREATININE FOR GFR 0.87 MG/DL (0.55-1.30); ETHYL ALCOHOL (ETHANOL) < 0.003 % (0.000-0.010); GLOMERULAR FILTRATION RATE > 60.0 (>51); GLUCOSE, FASTING 97 MG/DL (70-100); POTASSIUM SERUM 4.8 MEQ/L (3.5-5.1); SALICYLATE LEVEL < 1.7 MG/DL (5.0-30.0); SODIUM LEVEL 139 MEQ/L (136-145); TOTAL PROTEIN 7.3 GM/DL (6.4-8.2)
[2019-01-19] MEDS ORDERED: ZOLP5TAB PO (16:21)
[2019-01-19] MEDS ORDERED: BUPR-335 PO (16:21)
[2019-01-19] MEDS ORDERED: HYDR1CRE30 TOP (16:21)
[2019-01-19] MEDS ORDERED: VENTAER INH (16:21)
[2019-01-19] MEDS ORDERED: CYCL10TA PO (16:21)
[2019-01-19] MEDS ORDERED: FLUT1INH2 INH (16:21)
[2019-01-19] MEDS ORDERED: MOM 30ML SUSPENSION UDC PO PRN (19:00)
[2019-01-19] MEDS ORDERED: ACETAMINOPHEN TAB 650MG DOSE (2X325MG) PO PRN (19:00)
[2019-01-19] MEDS ORDERED: MAALOX 30 ML SUSP *UDC PO PRN (19:00)
[2019-01-19] MEDS ORDERED: traZODone 50 MG TAB PO PRN (19:00)
[2019-01-19] MEDS ORDERED: FLUoxetine 20 MG CAP PO SCH (21:00)
[2019-01-19] MEDS ORDERED: buPROPion **XL** TABLET 150MG (WELLBUTRIN XL) PO SCH (21:00)
[2019-01-19] MEDS: CYCLOBENZAPRINE 10 MG TAB PO SCH (21:13)
[2019-01-19] MEDS: SIMVASTATIN 20 MG TAB PO SCH (21:13)
[2019-01-20 06:43] VITALS: BP 129/71
[2019-01-20] MEDS ORDERED: metFORMIN (GLUCOPHAGE) 500 MG TAB PO SCH (08:00)
[2019-01-20] MEDS: CYCLOBENZAPRINE 10 MG TAB PO SCH ×3 (08:03→21:37)
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
[2019-01-20 18:00] VITALS: BP 110/56
[2019-01-20] MEDS: buPROPion **XL** TABLET 150MG (WELLBUTRIN XL) PO SCH (21:37)
[2019-01-20] MEDS: SIMVASTATIN 20 MG TAB PO SCH (21:37)
[2019-01-20] MEDS: QUEtiapine FUMARATE 50 MG TAB PO SCH (21:37)
[2019-01-20] MEDS: metFORMIN (GLUCOPHAGE) 500 MG TAB PO SCH (21:37)
[2019-01-21] MEDS: CYCLOBENZAPRINE 10 MG TAB PO SCH ×3 (08:30→20:38)
[2019-01-21] MEDS ORDERED: PILL CRUSHER/CUTTER 1 EACH XX PRN (09:15)
[2019-01-21 18:00] VITALS: BP 129/76
--- NOTE | 2019-01-21 19:24 | MHIPNPDOC ---
[facility] Progress Note Progress Note DATE OF SERVICE: 01/21/19 HISTORY: HISTORY OF THE PRESENT ILLNESS: Patient is a 48 -year-old , female, who as per ED report: "Pt self presented to ED due to feeling depressed and anxious. Chief Complaint Pt self-presented to the ED for worsening symptoms of depression and anxiety. Pt disclosed that her grandmother, whom she was very close too, about a month ago and the family just buried her this past Saturday. Pt expressed that she feels the medication she is on (Trazodone/fluoxetine) is no longer working for her. Pt see's Edgar @[facility] was last seen by him last month and next appt is in January. Pt also see's therapist, Joanie 1-2/month. Pt seems to be a poor historian because when asked about her psychiatrist/therapist, she became tangential/had flight of ideas talking about neurologists, her content editor, [employer], and having a learning disability, the medical library/medical book, and something about the internet. This software writer had to redirect pt to answer my original question. Pt stated that her psychiatrist suggested she may be bi-polar but she is only officially dx with depression and anxiety. Pt lives alone and stated that she left the stove on with a boiling pot of water from 8pm to 330a because she fell asleep. PT reports her sleeping has been very erratic lately but says appetite is normal. Pt reports that she wakes up crying and cries randomly throughout the day and overall just feels overwhelmed with sadness. Denies SI/HI, AH/VH, ETOH/substance abuse" VITAL SIGNS: See below. NEW TEST RESULTS: See below CURRENT MEDICATIONS: See below. MENTAL STATUS EXAMINATION: Patient is a 48 year old female, who is alert, cooperative, dressed in hospital clothes, good hygiene, fair grooming. Speech: Is normal in rate, tone and volume.. Language skills are good. Thought processes including: less disorganized, she doesn't exhibit thought blocking today, she is not tangential, not circumstantial today. Thought content: future orientated, she has plans for the future,more optimistic, less pessimistic. She denies SI, denies HI>. Abstract reasoning, and computation: fair Description of associations: good. Description of abnormal or psychotic thoughts: denies paranoid/grandiose/bizarre delusions, denies AV hallucinations, denies SI/HI. Judgment: improving Insight: improving. Orientation: x 3. Recent and remote memory: she still has limited recollection of certain events in her life. Attention span and concentration: fair. Language: Divehi and [place]. Fund of knowledge: below average Mood: less sad, less irritable Affect: congruent with mood DIAGNOSES: 1. Bipolar disorder 2. PTSD 3. Learning disabilities by history. ASSESSMENT: The patient is less depressed and less irritable today. She is more rational, she is not demanding her lipstick today. she told me that she has this fixation with her lipstick because since she was a child she wanted to be able to use it, so, her mother would apply it once in a while. She says she has used it all her life. It almost seems that she grew up with it, that it is part of her identity, that makes her feel well. Patient is improving, probably will be discharged on Saturday if she continues to improve. MANAGEMENT PLAN: Increase Abilify to 5 mgs at bedtime and 2.5 mgs in a.m TIME SPENT: 20 minutes. Vital Signs Vital Signs Date Time Temp Pulse Resp B/P (MAP) Pulse Ox O2 Delivery O2 Flow Rate FiO2 01/20/19 18:00 98.7 89 16 110/56 (74) 01/19/19 19:47 94 Room Air Laboratory Data 24H Labs Laboratory Tests 2 01/21/19 06:17: Bedside Glucose (Misc Panel) 102 Current Medications Current Medications Acetaminophen (Tylenol Tab) 650 mg Q6HP PRN PO HEADACHE or DISCOMFORT Last administered on 01/19/19at 22:44; Start 01/19/19 at 19:00 Al Hydrox/Mg Hydrox/Simethicone (Mylanta) 30 ml Q4HP PRN PO HEARTBURN/INDIGESTION; Start 01/19/19 at 19:00 Aripiprazole (AbiLIFY) 2.5 mg BID PO Last administered on 01/21/19at 08:30; Start 01/20/19 at 09:00 Bupropion HCl (Wellbutrin Xl) 150 mg QHS PO Last administered on 01/20/19at 21:37; Start 01/20/19 at 21:00 Bupropion HCl (Wellbutrin Xl) 300 mg QHS PO Last administered on 01/19/19 21:13; Start 01/19/19 at 21:00; Stop 01/20/19 at 11:40; Status DC Cyclobenzaprine HCl (Flexeril) 10 mg TID PO Last administered on 01/21/19at 15:59; Start 01/19/19 at 21:00 Fluoxetine HCl (PROzac) 20 mg QHS PO Last administered on 01/19/19 21:13; Start 01/19/19 at 21:00; Stop 01/20/19 at 11:34; Status DC Home Med (Med Rec Complete!) ASDIRECTED XX ; Start 01/19/19 at 16:30; Stop 01/19/19 at 16:30; Status DC Magnesium Hydroxide (Milk Of Magnesia) 30 ml DAILYPRN PRN PO CONSTIPATION; Start 01/19/19 at 19:00 Metformin HCl (Glucophage) 500 mg DAILY@08 PO ; Start 01/20/19 at 08:00; Stop 01/20/19 at 08:40; Status DC Metformin HCl (Glucophage) 500 mg QHS PO Last administered on 01/20/19at 21:37; Start 01/20/19 at 21:00 Quetiapine Fumarate (SEROquel) 50 mg QHS PO Last administered on 01/20/19 21:37; Start 01/20/19 at 21:00 Simvastatin (Zocor) 20 mg QHS PO Last administered on 01/20/19at 21:37; Start 01/19/19 at 21:00 Trazodone HCl (Desyrel) 50 mg QHSP PRN PO INSOMNIA Last administered on 01/19/19at 21:12; Start 01/19/19 at 19:00; Stop 01/20/19 at 11:56; Status DC Allergies Coded Allergies: Penicillins (Verified Allergy, Unknown, 01/19/19) HIVES clindamycin (Verified Allergy, Unknown, 01/19/19) HIVES doxycycline (Verified Allergy, Unknown, 01/19/19) HIVES erythromycin base (Verified Allergy, Unknown, 01/19/19) CHANDLERES NOHEMI CRISTOBAL MD January 21, 2019 19:24
[2019-01-21] MEDS: QUEtiapine FUMARATE 50 MG TAB PO SCH (20:38)
[2019-01-21] MEDS: SIMVASTATIN 20 MG TAB PO SCH (20:38)
[2019-01-21] MEDS: buPROPion **XL** TABLET 150MG (WELLBUTRIN XL) PO SCH (20:38)
[2019-01-21] MEDS: metFORMIN (GLUCOPHAGE) 500 MG TAB PO SCH (20:39)
[2019-01-22 07:10] VITALS: BP 123/70
[2019-01-22 07:12] LABS: CHOLESTEROL RISK RATIO 3.844 (<5)
[2019-01-22] MEDS: CYCLOBENZAPRINE 10 MG TAB PO SCH ×3 (07:42→20:31)
[2019-01-22 07:51] VITALS: BP 123/70
--- NOTE | 2019-01-22 16:48 | MHIPNPDOC ---
[facility] Progress Note Progress Note DATE OF SERVICE: 01/22/19 HISTORY: HISTORY OF THE PRESENT ILLNESS: Patient is a 48 -year-old , female, who as per ED report: "Pt self presented to ED due to feeling depressed and anxious. Chief Complaint Pt self-presented to the ED for worsening symptoms of depression and anxiety. Pt disclosed that her grandmother, whom she was very close too, about a month ago and the family just buried her this past Saturday. Pt expressed that she feels the medication she is on (Trazodone/fluoxetine) is no longer working for her. Pt see's Edgar @[facility] was last seen by him last month and next appt is in January. Pt also see's therapist, Joanie 1-2/month. Pt seems to be a poor historian because when asked about her psychiatrist/therapist, she became tangential/had flight of ideas talking about neurologists, her commission auditor, [employer], and having a learning disability, the medical library/medical book, and something about the internet. This film writer had to redirect pt to answer my original question. Pt stated that her psychiatrist suggested she may be bi-polar but she is only officially dx with depression and anxiety. Pt lives alone and stated that she left the stove on with a boiling pot of water from 8pm to 330a because she fell asleep. PT reports her sleeping has been very erratic lately but says appetite is normal. Pt reports that she wakes up crying and cries randomly throughout the day and overall just feels overwhelmed with sadness. Denies SI/HI, AH/VH, ETOH/substance abuse" VITAL SIGNS: See below. NEW TEST RESULTS: See below CURRENT MEDICATIONS: See below. MENTAL STATUS EXAMINATION: Patient is a 48 year old female, who is alert, cooperative, dressed in hospital clothes, good hygiene, fair grooming. Speech: Is normal in rate, tone and volume.. Language skills are good. Thought processes including: not tangential, not circumstantial but she has trouble processing some concepts, like for example why the Abilify would benefit her if she has the [place]. Thought content: future orientated but he has anxious thoughts about claiming disability due to the learning disabilities that she says she has been diagnosed with Abstract reasoning, and computation: fair Description of associations: good. Description of abnormal or psychotic thoughts: denies paranoid/grandiose/bizarre delusions, denies AV hallucinations, denies SI/HI. Judgment: improving Insight: improving. Orientation: x 3. Recent and remote memory: she still has limited recollection of certain events in her life, she has limits when it comes to understanding and processing information Attention span and concentration: limited today, she is anxious Language: Portuguese and Maltese. Fund of knowledge: below average Mood: less sad, less irritable Affect: congruent with mood DIAGNOSES: 1. Bipolar disorder 2. PTSD 3. Learning disabilities by history. ASSESSMENT: The patient is willing to leave tomorrow, she is not ready to have the injection, she is afraid of needles. She requested a letter from me, so that she can use it for disability claims but I told her that this is up to her outpatient provider since I only had her as a patient for some days and that even if she has a diagnosis of bipolar disorder, there's high functional bipolar and schizophrenic patients. She denies HI, SI and denies thought delusions and hallucinations. she denies medication loreto effects. MANAGEMENT PLAN: Abilify to 5 mgs at bedtime and 2.5 mgs in a.m, TIME SPENT: 20 minutes. Vital Signs Vital Signs Date Time Temp Pulse Resp B/P (MAP) Pulse Ox O2 Delivery O2 Flow Rate FiO2 01/22/19 07:51 98.2 87 16 123/70 (87) 01/19/19 19:47 94 Room Air Laboratory Data 24H Labs Laboratory Tests 2 01/22/19 06:12: Triglycerides Level 117, LDL Cholesterol 142H, Total Cholesterol 223H, Non-HDL Cholesterol (LDL + VLDL) 165, Total HDL Cholesterol 58, Cholesterol/HDL Ratio 3.844 01/22/19 11:36: Bedside Glucose (Misc Panel) 108H Current Medications Current Medications Acetaminophen (Tylenol Tab) 650 mg Q6HP PRN PO HEADACHE or DISCOMFORT Last administered on 01/19/19at 22:44; Start 01/19/19 at 19:00 Al Hydrox/Mg Hydrox/Simethicone (Mylanta) 30 ml Q4HP PRN PO HEARTBURN/INDIGESTION Last administered on 01/22/19at 07:42; Start 01/19/19 at 19:00 Aripiprazole (AbiLIFY) 2.5 mg BID PO Last administered on 01/21/19 08:30; Start 01/20/19 at 09:00; Stop 01/21/19 at 19:13; Status DC Aripiprazole (AbiLIFY) 2.5 mg QAM PO Last administered on 01/22/19 07:42; Start 01/22/19 at 09:00 Aripiprazole (AbiLIFY) 5 mg QHS PO Last administered on 01/21/19 20:38; Start 01/21/19 at 21:00 Bupropion HCl (Wellbutrin Xl) 150 mg QHS PO Last administered on 01/21/19 20:38; Start 01/20/19 at 21:00 Bupropion HCl (Wellbutrin Xl) 300 mg QHS PO Last administered on 01/19/19 21:13; Start 01/19/19 at 21:00; Stop 01/20/19 at 11:40; Status DC Cyclobenzaprine HCl (Flexeril) 10 mg TID PO Last administered on 01/22/19 15:36; Start 01/19/19 at 21:00 Fluoxetine HCl (PROzac) 20 mg QHS PO Last administered on 01/19/19 21:13; Start 01/19/19 at 21:00; Stop 01/20/19 at 11:34; Status DC Home Med (Med Rec Complete!) ASDIRECTED XX ; Start 01/19/19 at 16:30; Stop 01/19/19 at 16:30; Status DC Magnesium Hydroxide (Milk Of Magnesia) 30 ml DAILYPRN PRN PO CONSTIPATION; Start 01/19/19 at 19:00 Metformin HCl (Glucophage) 500 mg DAILY@08 PO ; Start 01/20/19 at 08:00; Stop 01/20/19 at 08:40; Status DC Metformin HCl (Glucophage) 500 mg QHS PO Last administered on 01/21/19 20:39; Start 01/20/19 at 21:00 Quetiapine Fumarate (SEROquel) 50 mg QHS PO Last administered on 01/21/19 20:38; Start 01/20/19 at 21:00 Simvastatin (Zocor) 20 mg QHS PO Last administered on 01/21/19 20:38; Start 01/19/19 at 21:00 Trazodone HCl (Desyrel) 50 mg QHSP PRN PO INSOMNIA Last administered on 01/19/19at 21:12; Start 01/19/19 at 19:00; Stop 01/20/19 at 11:56; Status DC Allergies Coded Allergies: Penicillins (Verified Allergy, Unknown, 01/19/19) HIVES clindamycin (Verified Allergy, Unknown, 01/19/19) HIVES doxycycline (Verified Allergy, Unknown, 01/19/19) HIVES erythromycin base (Verified Allergy, Unknown, 01/19/19) CHANDLERES NOHEMI CRISTOBAL MD January 22, 2019 16:48
[2019-01-22 18:00] VITALS: BP 115/62
[2019-01-22] MEDS: QUEtiapine FUMARATE 50 MG TAB PO SCH (20:31)
[2019-01-22] MEDS: SIMVASTATIN 20 MG TAB PO SCH (20:31)
[2019-01-22] MEDS: buPROPion **XL** TABLET 150MG (WELLBUTRIN XL) PO SCH (20:31)
[2019-01-22] MEDS: metFORMIN (GLUCOPHAGE) 500 MG TAB PO SCH (20:33)
[2019-01-23 07:11] VITALS: BP 126/69
[2019-01-23] MEDS: CYCLOBENZAPRINE 10 MG TAB PO SCH (08:03)
[2019-01-23] MEDS ORDERED: BUPR150T3 PO (12:29)
[2019-01-23] MEDS ORDERED: ABIL1TAB11 PO ×2 (12:29)
[2019-01-23] MEDS ORDERED: QUET5TAB PO (12:29)
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
== END 2019-01-23 12:55 | disposition home or self-care (01) | DRG 753 ==
LOC: M ED 12:05 → M ED INP 18:51 → M PSY 20:00
PROVIDERS: ADMIT Psychiatry & Neurology Psychiatry; ATTEND Psychiatry & Neurology Psychiatry
DX: F31.9 Bipolar disorder, unspecified (principal); F43.10 Post-traumatic stress disorder, unspecified; Z62.810 Personal history of physical and sexual abuse in childhood; Z79.84 Long term (current) use of oral hypoglycemic drugs; Z79.899 Other long term (current) drug therapy; Z88.0 Allergy status to penicillin; F81.9 Developmental disorder of scholastic skills, unspecified; Z91.5 Personal history of self-harm; Z81.8 Family history of other mental and behavioral disorders; Z81.1 Family history of alcohol abuse and dependence; Z81.3 Family history of other psychoactive substance abuse and dependence; Z63.4 Disappearance and death of family member; Z88.1 Allergy status to other antibiotic agents

== ENCOUNTER 2019-02-18 15:37 | Emergency (ER) | payer MEDICAID, OTHER ==
[~2019-02-18] VITALS: Ht 152.4 cm; Wt 77.3 kg
[~2019-02-18 15:37] MED LIST changes: +ABIL1TAB11 PO; +BUPR-335 PO; +BUPR150T3 PO; +FLUT1INH2 INH; +HYDR1CRE30 TOP; +QUET5TAB PO; +SIMV20TA2 PO; -TRAZ-160; -TRAZ-160 PO; +TRAZ-252; +TRAZ-252 PO; +ZOLP5TAB PO
[2019-02-18] MEDS ORDERED: MEDR4PAK PO (19:08)
[2019-02-18] MEDS ORDERED: ALBU83IN NEB (19:08)
[2019-02-18 19:17] VITALS: BP 157/89
== END 2019-02-18 19:19 | disposition home or self-care (01) ==
LOC: M ED 15:37
DX: J06.9 Acute upper respiratory infection, unspecified (principal); E11.9 Type 2 diabetes mellitus without complications; J44.9 Chronic obstructive pulmonary disease, unspecified; E78.5 Hyperlipidemia, unspecified; K21.9 Gastro-esophageal reflux disease without esophagitis; F41.9 Anxiety disorder, unspecified; F32.9 Major depressive disorder, single episode, unspecified; Z79.899 Other long term (current) drug therapy; Z88.0 Allergy status to penicillin; Z88.1 Allergy status to other antibiotic agents

== ENCOUNTER 2019-03-17 11:36 | Emergency (ER) | payer OTHER ==
[~2019-03-17] VITALS: Ht 152.4 cm; Wt 81.8 kg
[~2019-03-17 11:36] MED LIST changes: +ALBU83IN NEB; +MEDR4PAK PO
[2019-03-17] MEDS ORDERED: HYDR25TAB PO (11:45)
[2019-03-17 13:38] LABS: BASO % 0.4 % (0.0-1.0); EOS # 0.4 10^3/uL (0.0-0.50); EOS % 4.3 % (0.0-3.0); HEMATOCRIT 42.3 % (36.0-47.0); HEMOGLOBIN 13.7 g/dl (12.0-15.5); LYMPH # 2.5 10^3/uL (1.5-4.5); LYMPH % 29.2 % (24.0-44.0); MEAN CORPUSCULAR HEMOGLOBIN 30.7 pg (27.0-33.0); MEAN CORPUSCULAR HGB CONC 32.4 g/dl (32.0-36.5); MEAN CORPUSCULAR VOLUME 94.8 fl (80.0-96.0); MONO # 0.6 10^3/uL (0.0-0.8); MONO % 7.6 % (0.0-5.0); NEUTROPHILS % 58.3 % (36.0-66.0); PLATELET COUNT, AUTOMATED 386 10^3/uL (150-450); RED BLOOD COUNT 4.46 10^6/uL (4.00-5.40); WHITE BLOOD COUNT 8.5 10^3/uL (4.0-10.0)
[2019-03-17 14:02] LABS: ALBUMIN 3.6 GM/DL (3.2-5.2); ALT/SGPT 50 U/L (12-78); BILIRUBIN,DIRECT 0.1 MG/DL (0.0-0.2); BILIRUBIN,TOTAL 0.3 MG/DL (0.2-1.0); BLOOD UREA NITROGEN 10 MG/DL (7-18); C REACTIVE PROTEIN QUANTITATIV 1.59 MG/DL (0.00-0.30); CALCIUM LEVEL 9.4 MG/DL (8.5-10.1); CARBON DIOXIDE LEVEL 32 MEQ/L (21-32); CHLORIDE LEVEL 100 MEQ/L (98-107); GLOMERULAR FILTRATION RATE > 60.0 (>51); GLUCOSE, FASTING 110 MG/DL (70-100); POTASSIUM SERUM 3.9 MEQ/L (3.5-5.1); SODIUM LEVEL 137 MEQ/L (136-145)
[2019-03-17 14:05] LABS: ERYTHROCYTE SEDIMENTATION RATE 21 mm/hr (0-30)
[2019-03-17 14:36] LABS: INR 0.9; PARTIAL THROMBOPLASTIN TIME 27.5 SECONDS (25.0-38.4); PROTHROMBIN TIME 11.9 SECONDS (11.8-14.0)
[2019-03-17 15:10] VITALS: BP 132/85
[2019-03-17 15:36] LABS: APPEARANCE, URINE HAZY (CLEAR); BACTERIA, URINE AUTO NEGATIVE (NEGATIVE); BILIRUBIN, URINE AUTO NEGATIVE (NEGATIVE); BLOOD, URINE BLOOD NEGATIVE (NEGATIVE); COLOR, URINE STRAW (YELLOW); GLUCOSE, URINE (UA) AUTO NEGATIVE (NEGATIVE); KETONE, URINE AUTO NEGATIVE (NEGATIVE); LEUKOCYTE ESTERASE, URINE AUTO NEGATIVE (NEGATIVE); NITRITE, URINE AUTO NEGATIVE (NEGATIVE); PROTEIN, URINE AUTO NEGATIVE (NEGATIVE); RBC, URINE AUTO 4 /HPF (0-3); SPECIFIC GRAVITY URINE AUTO 1.008 (1.002-1.035); SQUAMOUS EPITHELIAL CELL UR AU 3 /HPF (0-6); UROBILINOGEN, URINE AUTO 0.2 mg/dL (0.0-2.0); WBC, URINE AUTO 2 /HPF (0-3)
[2019-03-17] MEDS ORDERED: NEUR100C PO (15:39)
[2019-03-17 16:02] LABS: RHEUMATOID FACTOR QUANT 10.3 IU/ML (<15.0)
[2019-03-19 14:24] LABS: ANTINUCLEAR ANTIBODIES DIRECT Negative (Negative)
[2019-04-01] MEDS ORDERED: LASI40TA9 PO (15:30)
== END 2019-03-17 15:57 | disposition home or self-care (01) ==
LOC: M ED 11:36
DX: R21 Rash and other nonspecific skin eruption (principal); E11.9 Type 2 diabetes mellitus without complications; J44.9 Chronic obstructive pulmonary disease, unspecified; J45.909 Unspecified asthma, uncomplicated; F31.81 Bipolar II disorder; F33.9 Major depressive disorder, recurrent, unspecified; F41.9 Anxiety disorder, unspecified; K21.9 Gastro-esophageal reflux disease without esophagitis; Z79.899 Other long term (current) drug therapy; Z79.84 Long term (current) use of oral hypoglycemic drugs; Z88.0 Allergy status to penicillin; Z88.1 Allergy status to other antibiotic agents

== ENCOUNTER 2019-03-26 11:48 | Emergency (ER) | payer OTHER ==
[~2019-03-26] VITALS: Ht 152.4 cm; Wt 84.0 kg
[~2019-03-26 11:48] MED LIST changes: +HYDR25TAB PO; +NEUR100C PO
--- NOTE | 2019-03-26 12:58 | REP ---
Clinical: Intermittent pain and swelling . Technique: Santiago scale and color Doppler evaluation using linear high frequency transducer. Findings: Ultrasound examination of the left lower extremity deep venous structures from the common femoral vein to the popliteal vein demonstrates normal compressibility flow and wave patterns in response to respiration and augmentation. There is no evidence for deep venous thrombosis. Impression: No evidence for deep venous thrombosis. Electronically Signed by Cristofer Jean MD 03/26/2019 12:49 P
[2019-03-26 13:39] VITALS: BP 110/67
[2019-04-01] MEDS ORDERED: LASI40TA9 PO (15:30)
== END 2019-03-26 13:42 | disposition home or self-care (01) ==
LOC: M ED 11:48
DX: R06.9 Unspecified abnormalities of breathing (principal); Z87.891 Personal history of nicotine dependence; Z79.84 Long term (current) use of oral hypoglycemic drugs; Z79.899 Other long term (current) drug therapy; Z88.0 Allergy status to penicillin; Z88.1 Allergy status to other antibiotic agents

== ENCOUNTER → 2019-05-04 | Outpatient (CLI) | payer OTHER ==
[~2019-05-04] MED LIST changes: +LASI40TA9 PO
--- NOTE | 2019-05-04 13:48 | REP ---
REASON: Bilateral foot pain. No trauma. FINDINGS: The joint spaces are symmetric and relatively well maintained. There is no evidence of acute fracture or destructive osseous lesion. IMPRESSION: Negative. Electronically Signed by Elliott Rangel DO 05/04/2019 04:45 P
== END ==
LOC: M RAD 11:18
PROVIDERS: ATTEND Physician Assistant Medical
DX: M79.671 Pain in right foot (principal); M79.672 Pain in left foot

== ENCOUNTER 2019-06-15 10:08 | Emergency (ER) | payer OTHER ==
[~2019-06-15] VITALS: Ht 152.4 cm; Wt 84.1 kg
[~2019-06-15 10:08] MED LIST changes: +FLUO10CA15 PO; -FLUO10CA8 PO; +FLUO20CA20 PO; -FLUO20CA8 PO; -SIMV20TA2 PO; +SIMV20TA22 PO
[2019-06-15] MEDS ORDERED: LORazepam 1 MG TAB PO STA (14:53)
[2019-06-15 15:20] LABS: HEMATOCRIT 46.1 % (36.0-47.0); HEMOGLOBIN 14.9 g/dl (12.0-15.5); MEAN CORPUSCULAR HGB CONC 32.3 g/dl (32.0-36.5); MEAN CORPUSCULAR VOLUME 95.8 fl (80.0-96.0); PLATELET COUNT, AUTOMATED 330 10^3/uL (150-450); RED BLOOD COUNT 4.81 10^6/uL (4.00-5.40)
[2019-06-15 15:58] LABS: ACETAMINOPHEN LEVEL < 2.0 UG/ML (10.0-30.0); ALT/SGPT 47 U/L (12-78); BILIRUBIN,DIRECT < 0.1 MG/DL (0.0-0.2); BILIRUBIN,TOTAL 0.3 MG/DL (0.2-1.0); BLOOD UREA NITROGEN 10 MG/DL (7-18); CALCIUM LEVEL 9.4 MG/DL (8.5-10.1); CARBON DIOXIDE LEVEL 23 MEQ/L (21-32); CHLORIDE LEVEL 105 MEQ/L (98-107); CREATININE FOR GFR 0.83 MG/DL (0.55-1.30); ETHYL ALCOHOL (ETHANOL) < 0.003 % (0.000-0.010); GLOMERULAR FILTRATION RATE > 60.0 (>51); GLUCOSE, FASTING 116 MG/DL (70-100); POTASSIUM SERUM 4.2 MEQ/L (3.5-5.1); SALICYLATE LEVEL < 1.7 MG/DL (5.0-30.0); SODIUM LEVEL 138 MEQ/L (136-145); TOTAL PROTEIN 7.2 GM/DL (6.4-8.2)
[2019-06-15] MEDS ORDERED: ATIV1TAB7 PO (16:42)
[2019-06-15 16:56] VITALS: BP 143/76
--- NOTE | 2019-06-15 21:59 | ECGEPIP ---
[facility] - ED Test Date: 2019-06-15 Pat Name: ÓSCAR MURRY Department: Room: - Gender: Female Application Software Engineer: francia : 1970 Requested By: Iris Xiao Order Number: [id number] Reading MD: Rhys Vieira Measurements Intervals [place] Rate: 82 P: 63 ID: 128 QRS: 39 QRSD: 81 T: 30 QT: 361 QTc: 423 Interpretive Statements SINUS RHYTHM Nonspecific ST-T wave abnormalities Similar to tracing done 01-14-18 Electronically Signed on 06-15-2019 21:59:33 EDT by Rhys Vieira
== END 2019-06-15 16:58 | disposition home or self-care (01) ==
LOC: M ED 10:08
DX: F41.0 Panic disorder [episodic paroxysmal anxiety] (principal); E11.9 Type 2 diabetes mellitus without complications; J44.9 Chronic obstructive pulmonary disease, unspecified; E78.9 Disorder of lipoprotein metabolism, unspecified; F32.9 Major depressive disorder, single episode, unspecified; K21.9 Gastro-esophageal reflux disease without esophagitis; M54.9 Dorsalgia, unspecified; Z88.0 Allergy status to penicillin; Z88.1 Allergy status to other antibiotic agents; Z79.899 Other long term (current) drug therapy; Z79.84 Long term (current) use of oral hypoglycemic drugs
CPT/HCPCS: 36415; 80048; 80076; 84443; 85027; 93005; 99284; G0480

== ENCOUNTER 2019-07-04 12:16 | Emergency (ER) | payer OTHER ==
[~2019-07-04] VITALS: Ht 152.4 cm; Wt 83.2 kg
[~2019-07-04 12:16] MED LIST changes: +ATIV1TAB7 PO; -FLUO10CA15 PO; +FLUO10CA8 PO; -FLUO20CA20 PO; +FLUO20CA8 PO; +SIMV20TA2 PO; -SIMV20TA22 PO
[2019-07-04] MEDS ORDERED: ATIV1TAB10 PO (12:32)
[2019-07-04 13:39] LABS: HEMATOCRIT 42.4 % (36.0-47.0); MEAN CORPUSCULAR HEMOGLOBIN 30.8 pg (27.0-33.0); MEAN CORPUSCULAR VOLUME 93.2 fl (80.0-96.0); PLATELET COUNT, AUTOMATED 369 10^3/uL (150-450); RED BLOOD COUNT 4.55 10^6/uL (4.00-5.40); WHITE BLOOD COUNT 8.6 10^3/uL (4.0-10.0)
[2019-07-04 14:06] LABS: HCG, SERUM QUALITATIVE NEGATIVE (NEGATIVE)
[2019-07-04 14:16] LABS: ACETAMINOPHEN LEVEL < 2.0 UG/ML (10.0-30.0); ALBUMIN 3.8 GM/DL (3.2-5.2); ALT/SGPT 57 U/L (12-78); BILIRUBIN,DIRECT 0.1 MG/DL (0.0-0.2); BILIRUBIN,TOTAL 0.4 MG/DL (0.2-1.0); BLOOD UREA NITROGEN 6 MG/DL (7-18); CALCIUM LEVEL 8.9 MG/DL (8.5-10.1); CARBON DIOXIDE LEVEL 28 MEQ/L (21-32); CHLORIDE LEVEL 103 MEQ/L (98-107); CREATININE FOR GFR 0.78 MG/DL (0.55-1.30); ETHYL ALCOHOL (ETHANOL) < 0.003 % (0.000-0.010); GLOMERULAR FILTRATION RATE > 60.0 (>51); GLUCOSE, FASTING 148 MG/DL (70-100); POTASSIUM SERUM 3.7 MEQ/L (3.5-5.1); SALICYLATE LEVEL < 1.7 MG/DL (5.0-30.0); SODIUM LEVEL 137 MEQ/L (136-145); THYROID STIMULATING HORMONE 0.853 uIU/ML (0.358-3.740)
[2019-07-04 14:48] VITALS: BP 161/92
== END 2019-07-04 14:54 | disposition home or self-care (01) ==
LOC: M ED 12:16
DX: F33.9 Major depressive disorder, recurrent, unspecified (principal); F29 Unspecified psychosis not due to a substance or known physiological condition; J45.909 Unspecified asthma, uncomplicated; E11.9 Type 2 diabetes mellitus without complications; K21.9 Gastro-esophageal reflux disease without esophagitis; Z79.899 Other long term (current) drug therapy; Z79.84 Long term (current) use of oral hypoglycemic drugs; Z88.0 Allergy status to penicillin; Z88.1 Allergy status to other antibiotic agents
CPT/HCPCS: 36415; 80048; 80076; 84443; 84703; 85027; 99284; G0480

== ENCOUNTER → 2019-09-21 | Outpatient (CLI) | payer OTHER ==
[~2019-09-21] MED LIST changes: +ATIV1TAB10 PO; +FLUO10CA15 PO; -FLUO10CA8 PO; +FLUO20CA20 PO; -FLUO20CA8 PO; -SIMV20TA2 PO; +SIMV20TA22 PO
[2019-09-21 13:43] LABS: BASO # 0.1 10^3/uL (0.0-0.2); BASO % 0.6 % (0.0-1.0); EOS # 0.1 10^3/uL (0.0-0.5); EOS % 1.7 % (0.0-3.0); HEMATOCRIT 47.1 % (36.0-47.0); HEMOGLOBIN 14.8 g/dl (12.0-15.5); LYMPH # 2.4 10^3/uL (1.5-5.0); LYMPH % 30.5 % (24.0-44.0); MEAN CORPUSCULAR HEMOGLOBIN 29.9 pg (27.0-33.0); MEAN CORPUSCULAR HGB CONC 31.4 g/dl (32.0-36.5); MEAN CORPUSCULAR VOLUME 95.2 fl (80.0-96.0); MONO # 0.6 10^3/uL (0.0-0.8); MONO % 7.8 % (0.0-5.0); NEUTROPHILS # 4.6 10^3/uL (1.5-8.5); PLATELET COUNT, AUTOMATED 404 10^3/uL (150-450); RED BLOOD COUNT 4.95 10^6/uL (4.00-5.40); WHITE BLOOD COUNT 7.7 10^3/uL (4.0-10.0)
[2019-09-21 14:14] LABS: ALT/SGPT 52 U/L (12-78); BILIRUBIN,TOTAL 0.4 MG/DL (0.2-1.0); BLOOD UREA NITROGEN 9 MG/DL (7-18); CALCIUM LEVEL 9.4 MG/DL (8.5-10.1); CARBON DIOXIDE LEVEL 30 MEQ/L (21-32); CHLORIDE LEVEL 102 MEQ/L (98-107); CHOLESTEROL LEVEL 299 MG/DL (<200); CREATININE FOR GFR 0.87 MG/DL (0.55-1.30); GLOMERULAR FILTRATION RATE > 60.0 (>51); GLUCOSE, FASTING 119 MG/DL (70-100); HDL CHOLESTEROL 66 MG/DL (>40); POTASSIUM SERUM 4.3 MEQ/L (3.5-5.1); SODIUM LEVEL 140 MEQ/L (136-145); TRIGLYCERIDES LEVEL 201 MG/DL (<150)
[2019-09-21 14:15] LABS: ALBUMIN 3.5 GM/DL (3.2-5.2); LDL CHOLESTEROL 193 MG/DL (<100); NON-HDL-C 233 MG/DL; TOTAL PROTEIN 7.5 GM/DL (6.4-8.2)
[2019-09-21 15:14] LABS: HEMOGLOBIN A1c 6.8 %
== END ==
LOC: M PLALAB 09:56
PROVIDERS: ATTEND Nurse Practitioner Adult Health
DX: R60.9 Edema, unspecified (principal); E11.65 Type 2 diabetes mellitus with hyperglycemia; E78.00 Pure hypercholesterolemia, unspecified

== ENCOUNTER → 2020-04-21 | Outpatient (CLI) | payer OTHER ==
[~2020-04-21] MED LIST changes: +ASPI-546; -ASPI1TAB15; -ASPI81TA85 PO; +ASPI81TA86 PO; +BUPR-69 PO; -BUPR50TA PO; +CYCL-707 PO; -CYCL10TA PO; -FLUO10CA15 PO; +FLUO10CA16 PO
[2020-05-21 10:36] LABS: BASO % 0.5 % (0.0-1.0); EOS # 0.3 10^3/uL (0.0-0.5); EOS % 3.7 % (0.0-3.0); HEMATOCRIT 43.5 % (36.0-47.0); LYMPH # 2.9 10^3/uL (1.5-5.0); LYMPH % 36.2 % (24.0-44.0); MEAN CORPUSCULAR HEMOGLOBIN 30.2 pg (27.0-33.0); MEAN CORPUSCULAR HGB CONC 32.2 g/dl (32.0-36.5); MONO # 0.5 10^3/uL (0.0-0.8); MONO % 6.6 % (0.0-5.0); NEUTROPHILS # 4.2 10^3/uL (1.5-8.5); NEUTROPHILS % 52.7 % (36.0-66.0); PLATELET COUNT, AUTOMATED 366 10^3/uL (150-450); RED BLOOD COUNT 4.63 10^6/uL (4.00-5.40); WHITE BLOOD COUNT 7.9 10^3/uL (4.0-10.0)
[2020-05-21 10:37] LABS: ERYTHROCYTE SEDIMENTATION RATE 25 mm/hr (0-30)
[2020-06-04 11:02] LABS: ANTINUCLEAR ANTIBODIES DIRECT SEE SEPARATE REPORT
[2020-06-06 08:36] LABS: ALBUMIN 3.5 GM/DL (3.2-5.2); ALT/SGPT 162 U/L (12-78); BILIRUBIN,TOTAL 0.3 MG/DL (0.2-1.0); BLOOD UREA NITROGEN 11 MG/DL (7-18); CALCIUM LEVEL 9.1 MG/DL (8.5-10.1); CARBON DIOXIDE LEVEL 28 MEQ/L (21-32); CHLORIDE LEVEL 105 MEQ/L (98-107); CREATININE FOR GFR 0.81 MG/DL (0.55-1.30); GLOMERULAR FILTRATION RATE > 60.0 (>51); GLUCOSE, FASTING 178 MG/DL (70-100); HEMOGLOBIN A1c 7.6 %; POTASSIUM SERUM 4.2 MEQ/L (3.5-5.1); RHEUMATOID FACTOR QUANT < 10.0 IU/ML (<15.0); SODIUM LEVEL 138 MEQ/L (136-145); TOTAL PROTEIN 7.3 GM/DL (6.4-8.2)
== END ==
LOC: M LAB 11:09
PROVIDERS: ATTEND Physician Assistant Medical
DX: F41.9 Anxiety disorder, unspecified (principal); R41.3 Other amnesia

== ENCOUNTER 2020-04-29 09:45 | Outpatient (RCR) | payer OTHER | END 2020-05-23 | disposition home or self-care (01) | LOC: M ST 09:45 | PROVIDERS: ATTEND Nurse Practitioner Adult Health | DX: R48.0 Dyslexia and alexia (principal) ==

== ENCOUNTER → 2020-04-29 | Outpatient (CLI) | payer OTHER ==
[2020-05-28 03:20] LABS: BASO % 0.5 % (0.0-1.0); EOS # 0.3 10^3/uL (0.0-0.5); EOS % 3.2 % (0.0-3.0); LYMPH # 2.5 10^3/uL (1.5-5.0); LYMPH % 30.6 % (24.0-44.0); MEAN CORPUSCULAR HEMOGLOBIN 30.4 pg (27.0-33.0); MEAN CORPUSCULAR HGB CONC 31.9 g/dl (32.0-36.5); MEAN CORPUSCULAR VOLUME 95.3 fl (80.0-96.0); MONO # 0.6 10^3/uL (0.0-0.8); MONO % 7.5 % (0.0-5.0); NEUTROPHILS # 4.7 10^3/uL (1.5-8.5); NEUTROPHILS % 57.8 % (36.0-66.0); PLATELET COUNT, AUTOMATED 357 10^3/uL (150-450); RED BLOOD COUNT 4.93 10^6/uL (4.00-5.40); WHITE BLOOD COUNT 8.2 10^3/uL (4.0-10.0)
[2020-06-13 22:30] LABS: ALBUMIN 3.7 GM/DL (3.2-5.2); ALT/SGPT 173 U/L (12-78); BILIRUBIN,TOTAL 0.4 MG/DL (0.2-1.0); BLOOD UREA NITROGEN 11 MG/DL (7-18); CALCIUM LEVEL 9.5 MG/DL (8.5-10.1); CARBON DIOXIDE LEVEL 30 MEQ/L (21-32); CHLORIDE LEVEL 101 MEQ/L (98-107); CHOLESTEROL LEVEL 279 MG/DL (<200); CHOLESTEROL RISK RATIO 5.072 (<5); CREATININE FOR GFR 0.88 MG/DL (0.55-1.30); GLOMERULAR FILTRATION RATE > 60.0 (>51); GLUCOSE, FASTING 189 MG/DL (70-100); HDL CHOLESTEROL 55 MG/DL (>40); LDL CHOLESTEROL 166 MG/DL (<100); NON-HDL-C 224 MG/DL; POTASSIUM SERUM 4.2 MEQ/L (3.5-5.1); SODIUM LEVEL 135 MEQ/L (136-145); TOTAL PROTEIN 7.6 GM/DL (6.4-8.2); TRIGLYCERIDES LEVEL 288 MG/DL (<150)
[2020-06-13 22:34] LABS: HEMOGLOBIN A1c 7.4 %
== END ==
LOC: M LAB 11:00
PROVIDERS: ATTEND Nurse Practitioner Adult Health
DX: Z53.9 Procedure and treatment not carried out, unspecified reason (principal)

== ENCOUNTER → 2020-06-09 | Outpatient (CLI) | payer OTHER ==
[~2020-06-09] MED LIST changes: +E-Z-GAS II EFFERVESCENT PACKET (SODIUM BICARB./CITRIC ACID/SIMETHICONE) As Ordered ONE; +E-Z-HD 98% w/w 340GM SUSP BTL As Ordered ONE; +E-Z-PAQUE 96% w/w SUSP 176GM BTL As Ordered ONE
--- NOTE | 2020-06-23 16:19 | REP ---
UPPER GI AIR CONTRAST: 06/09/20 The procedure was performed under the direct supervision of dr. reina. The images are reviewed with Dr. Reina. The turbine technician film shows no organomegaly or pathologic masses. The intestinal gas pattern is nonspecific. Liquid barium and gas producing granules were given in the erect position as well as liquid as barium in the prone oblique positions in order to perform a double contrast upper GI examination. The oral and pharyngeal stages of deglutition are unremarkable. Esophageal transport is prompt and efficient and there is no esophagitis, stricture or mucosal ring. There is a sliding type hiatal hernia. There is gastroesophageal reflux demonstrated to below the level of the michael. In the distal antrum there are thickened folds which may represent gastritis. There is no domingo ulcer identified. There is no mass identified. The remainder of the stomach is unremarkable. The duodenal raya are normally outlined. The mucosal folds are smooth and regular. There is no duodenitis, pancreatitis, peptic ulcer disease or neoplasm. The visualized portion of the proximal small bowel appears normal in course and caliber. There is a duodenal diverticulum which is unchanged compared to a previous study performed on 03/24/13. IMPRESSION: 1. There is a sliding type hiatal hernia. There is gastroesophageal reflux demonstrated to below the level of the michael. 2. In the distal antrum there is mucosal fold thickening which may represent gastritis. There is no domingo ulcer identified. There is no mass identified. 3. There is a duodenal diverticulum which is unchanged compared to a previous study performed on 03/24/13. 4. 2.4 minutes of fluoroscopy time was utilized for this procedure. [facility]
== END ==
LOC: M RAD 09:15
PROVIDERS: ATTEND Physician Assistant
DX: R13.10 Dysphagia, unspecified (principal); K44.9 Diaphragmatic hernia without obstruction or gangrene; K21.9 Gastro-esophageal reflux disease without esophagitis; K57.10 Diverticulosis of small intestine without perforation or abscess without bleeding

== ENCOUNTER 2020-06-16 16:29 | Emergency (ER) | payer OTHER ==
[~2020-06-16] VITALS: Ht 152.4 cm; Wt 88.3 kg
[~2020-06-16 16:29] MED LIST changes: -E-Z-GAS II EFFERVESCENT PACKET (SODIUM BICARB./CITRIC ACID/SIMETHICONE) As Ordered ONE; -E-Z-HD 98% w/w 340GM SUSP BTL As Ordered ONE; -E-Z-PAQUE 96% w/w SUSP 176GM BTL As Ordered ONE
[2020-06-16 17:32] LABS: VENOUS HCO3 25.4 MEQ/L (23.0-27.0); VENOUS O2 SATURATION 76.9 % (60.0-80.0); VENOUS PARTIAL PRESSURE CO2 48.2 mmHg (38.0-50.0); VENOUS PARTIAL PRESSURE O2 41.9 mmHg (30.0-50.0); VENOUS PH 7.339 UNITS (7.330-7.430); VENOUS STANDARD HCO3 23.1 MEQ/L; VENOUS TOTAL CO2 26.8 MEQ/L (24.0-28.0)
[2020-06-16 17:39] LABS: BASO # 0.1 10^3/uL (0.0-0.2); BASO % 0.8 % (0.0-1.0); EOS # 0.2 10^3/uL (0.0-0.5); EOS % 2.4 % (0.0-3.0); HEMATOCRIT 45.8 % (36.0-47.0); LYMPH # 3.2 10^3/uL (1.5-5.0); LYMPH % 42.4 % (24.0-44.0); MEAN CORPUSCULAR HEMOGLOBIN 30.2 pg (27.0-33.0); MEAN CORPUSCULAR HGB CONC 32.8 g/dl (32.0-36.5); MEAN CORPUSCULAR VOLUME 92.3 fl (80.0-96.0); MONO # 0.5 10^3/uL (0.0-0.8); MONO % 6.1 % (0.0-5.0); NEUTROPHILS # 3.6 10^3/uL (1.5-8.5); PLATELET COUNT, AUTOMATED 323 10^3/uL (150-450); RED BLOOD COUNT 4.96 10^6/uL (4.00-5.40); WHITE BLOOD COUNT 7.5 10^3/uL (4.0-10.0)
[2020-06-16 18:00] LABS: ALBUMIN 3.6 GM/DL (3.2-5.2); ALT/SGPT 124 U/L (12-78); BILIRUBIN,TOTAL 0.3 MG/DL (0.2-1.0); BLOOD UREA NITROGEN 13 MG/DL (7-18); CALCIUM LEVEL 9.4 MG/DL (8.5-10.1); CARBON DIOXIDE LEVEL 27 MEQ/L (21-32); CHLORIDE LEVEL 102 MEQ/L (98-107); CREATININE FOR GFR 0.92 MG/DL (0.55-1.30); GLOMERULAR FILTRATION RATE > 60.0 (>51); GLUCOSE, FASTING 324 MG/DL (70-100); POTASSIUM SERUM 4.5 MEQ/L (3.5-5.1); SODIUM LEVEL 137 MEQ/L (136-145); TOTAL PROTEIN 7.1 GM/DL (6.4-8.2)
[2020-06-16 18:01] LABS: HEMOGLOBIN A1c 10.4 %
[2020-06-16 19:26] VITALS: BP 178/110
== END 2020-06-16 19:33 | disposition home or self-care (01) ==
LOC: M ED 16:29
DX: E11.65 Type 2 diabetes mellitus with hyperglycemia (principal); Z88.0 Allergy status to penicillin; Z88.1 Allergy status to other antibiotic agents; Z79.51 Long term (current) use of inhaled steroids; Z79.84 Long term (current) use of oral hypoglycemic drugs; Z79.899 Other long term (current) drug therapy

== ENCOUNTER → 2020-07-06 | Outpatient (REF) | payer OTHER, MEDICAID ==
[2020-07-06 14:10] LABS: MALB URINE SIEMENS 16.3 MG/L
== END ==
LOC: M LAB REF 12:35
PROVIDERS: ATTEND Nurse Practitioner Family
DX: E11.65 Type 2 diabetes mellitus with hyperglycemia (principal)

== ENCOUNTER → 2020-08-09 | Outpatient (CLI) | payer OTHER ==
[2020-08-09 11:11] LABS: BLOOD UREA NITROGEN 14 MG/DL (7-18); CALCIUM LEVEL 9.6 MG/DL (8.5-10.1); CARBON DIOXIDE LEVEL 29 MEQ/L (21-32); CHLORIDE LEVEL 103 MEQ/L (98-107); CREATININE FOR GFR 0.87 MG/DL (0.55-1.30); GLOMERULAR FILTRATION RATE > 60.0 (>51); GLUCOSE, FASTING 110 MG/DL (70-100); POTASSIUM SERUM 4.5 MEQ/L (3.5-5.1); SODIUM LEVEL 138 MEQ/L (136-145)
== END ==
LOC: M LAB 09:07
PROVIDERS: ATTEND Nurse Practitioner Family
DX: E11.65 Type 2 diabetes mellitus with hyperglycemia (principal)

== ENCOUNTER 2020-09-23 13:20 | Emergency (ER) | payer OTHER ==
[~2020-09-23] VITALS: Ht 152.4 cm; Wt 87.6 kg
[2020-09-23] MEDS ORDERED: SILVER TOP (13:31)
[2020-09-23] MEDS ORDERED: STEG5TAB PO (13:31)
[2020-09-23] MEDS ORDERED: LISI-538 PO (13:31)
[2020-09-23] MEDS ORDERED: NS 1,000 ML IV ONE (15:00)
[2020-09-23 15:02] LABS: BASO % 0.2 % (0.0-1.0); EOS % 8.6 % (0.0-3.0); HEMATOCRIT 43.8 % (36.0-47.0); HEMOGLOBIN 13.5 g/dl (12.0-15.5); LYMPH # 3.5 10^3/uL (1.5-5.0); LYMPH % 30.6 % (24.0-44.0); MEAN CORPUSCULAR HEMOGLOBIN 29.7 pg (27.0-33.0); MEAN CORPUSCULAR HGB CONC 30.8 g/dl (32.0-36.5); MEAN CORPUSCULAR VOLUME 96.5 fl (80.0-96.0); MONO # 0.8 10^3/uL (0.0-0.8); MONO % 6.9 % (0.0-5.0); NEUTROPHILS # 6.1 10^3/uL (1.5-8.5); NEUTROPHILS % 53.3 % (36.0-66.0); PLATELET COUNT, AUTOMATED 401 10^3/uL (150-450); RED BLOOD COUNT 4.54 10^6/uL (4.00-5.40); WHITE BLOOD COUNT 11.4 10^3/uL (4.0-10.0)
[2020-09-23 15:34] LABS: BLOOD UREA NITROGEN 13 MG/DL (7-18); CALCIUM LEVEL 9.1 MG/DL (8.5-10.1); CARBON DIOXIDE LEVEL 30 MEQ/L (21-32); CHLORIDE LEVEL 103 MEQ/L (98-107); CREATININE FOR GFR 0.86 MG/DL (0.55-1.30); GLOMERULAR FILTRATION RATE > 60.0 (>51); GLUCOSE, FASTING 113 MG/DL (70-100); POTASSIUM SERUM 4.3 MEQ/L (3.5-5.1); SODIUM LEVEL 139 MEQ/L (136-145)
[2020-09-23 16:53] VITALS: BP 118/74
== END 2020-09-23 16:56 | disposition home or self-care (01) ==
LOC: M ED 13:20
DX: L25.2 Unspecified contact dermatitis due to dyes (principal); E11.9 Type 2 diabetes mellitus without complications; J44.9 Chronic obstructive pulmonary disease, unspecified; K21.9 Gastro-esophageal reflux disease without esophagitis; F41.9 Anxiety disorder, unspecified; F32.9 Major depressive disorder, single episode, unspecified; Z88.0 Allergy status to penicillin; Z88.1 Allergy status to other antibiotic agents; Z79.899 Other long term (current) drug therapy; Z79.84 Long term (current) use of oral hypoglycemic drugs

== ENCOUNTER 2020-09-30 12:09 | Emergency (ER) | payer OTHER, SELFPAY ==
[~2020-09-30] VITALS: Ht 152.4 cm; Wt 88.1 kg
[~2020-09-30 12:09] MED LIST changes: -BUPR150T3 PO; +BUPR150T4 PO; +HYDR-3490 PO; -HYDR25TAB PO; +LISI20TA33 PO; +QUET50TA3 PO; -QUET5TAB PO; +SILVER TOP; +STEG5TAB PO
[2020-09-30 12:10] VITALS: BP 117/64
[2020-09-30] MEDS ORDERED: ASPI325T57 PO (12:41)
[2020-09-30] MEDS ORDERED: EUCECRE8 TP (13:29)
== END 2020-09-30 13:38 | disposition home or self-care (01) ==
LOC: M ED 12:09
DX: T20.07XD Burn of unspecified degree of neck, subsequent encounter (principal); T49.4X Poisoning by, adverse effect of and underdosing of keratolytics, keratoplastics, and other hair treatment drugs and preparations; Y92.098 Other place in other non-institutional residence as the place of occurrence of the external cause; Z88.0 Allergy status to penicillin; Z88.1 Allergy status to other antibiotic agents; Z79.899 Other long term (current) drug therapy; Z79.84 Long term (current) use of oral hypoglycemic drugs; Z79.82 Long term (current) use of aspirin

== ENCOUNTER → 2020-10-07 | Outpatient (CLI) | payer OTHER ==
[~2020-10-07] MED LIST changes: +ASPI325T57 PO; +EUCECRE8 TP; -HYDR-3490 PO; +HYDR25TAB PO; +LISI-538 PO; -LISI20TA33 PO; -QUET50TA3 PO; +QUET5TAB PO
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
== END ==
LOC: M RAD 09:16
PROVIDERS: ATTEND Nurse Practitioner Adult Health
DX: T20.29XA Burn of second degree of multiple sites of head, face, and neck, initial encounter (principal); X58.XXXA Exposure to other specified factors, initial encounter; Y92.9 Unspecified place or not applicable

== ENCOUNTER 2020-12-30 10:14 | Emergency (ER) | payer OTHER ==
[~2020-12-30] VITALS: Ht 152.4 cm; Wt 88.5 kg
[~2020-12-30 10:14] MED LIST changes: +BUPR150T12 PO; -BUPR150T4 PO; +HYDR-3490 PO; -HYDR25TAB PO; -LISI-538 PO; +LISI20TA33 PO; +QUET50TA3 PO; -QUET5TAB PO
[2020-12-30 10:15] VITALS: BP 140/81
[2020-12-30] MEDS ORDERED: NAPR220C14 PO (10:30)
[2020-12-30] MEDS ORDERED: CYCLOBENZAPRINE 5MG TABLET PO ONE (11:10)
[2020-12-30] MEDS ORDERED: CYCL5TAB PO (11:10)
[2020-12-30] MEDS ORDERED: KETOROLAC TROMETHAMINE 10 MG TAB PO ONE (11:10)
== END 2020-12-30 11:27 | disposition home or self-care (01) ==
LOC: M ED 10:14
DX: S16.1XXA Strain of muscle, fascia and tendon at neck level, initial encounter (principal); X58.XXXA Exposure to other specified factors, initial encounter; Y92.9 Unspecified place or not applicable; Y93.9 Activity, unspecified; Y99.9 Unspecified external cause status; I10 Essential (primary) hypertension; E11.9 Type 2 diabetes mellitus without complications; K21.9 Gastro-esophageal reflux disease without esophagitis; J45.909 Unspecified asthma, uncomplicated; J44.9 Chronic obstructive pulmonary disease, unspecified; K44.9 Diaphragmatic hernia without obstruction or gangrene; M54.9 Dorsalgia, unspecified; F41.9 Anxiety disorder, unspecified; F32.9 Major depressive disorder, single episode, unspecified; E66.9 Obesity, unspecified; Z79.82 Long term (current) use of aspirin; Z79.84 Long term (current) use of oral hypoglycemic drugs; Z79.899 Other long term (current) drug therapy; Z88.0 Allergy status to penicillin; Z88.1 Allergy status to other antibiotic agents

== ENCOUNTER 2021-01-20 22:00 | Emergency (ER) | payer OTHER ==
[~2021-01-20] VITALS: Ht 152.4 cm; Wt 85.7 kg
[~2021-01-20 22:00] MED LIST changes: +NAPR220C14 PO
[2021-01-21] MEDS ORDERED: PROMETHAZINE INJ 25 MG/ML VIAL (J2550) IV ONE (00:05)
[2021-01-21] MEDS ORDERED: NS 500 ML IV ONE (00:25)
[2021-01-21 00:47] LABS: BASO % 0.5 % (0.0-1.0); EOS # 0.2 10^3/uL (0.0-0.5); EOS % 2.2 % (0.0-3.0); HEMATOCRIT 45.6 % (36.0-47.0); HEMOGLOBIN 14.5 g/dl (12.0-15.5); LYMPH # 1.7 10^3/uL (1.5-5.0); LYMPH % 21.1 % (24.0-44.0); MEAN CORPUSCULAR HEMOGLOBIN 29.6 pg (27.0-33.0); MEAN CORPUSCULAR HGB CONC 31.8 g/dl (32.0-36.5); MEAN CORPUSCULAR VOLUME 93.1 fl (80.0-96.0); MONO # 0.6 10^3/uL (0.0-0.8); MONO % 7.3 % (2.0-8.0); NEUTROPHILS # 5.6 10^3/uL (1.5-8.5); NEUTROPHILS % 68.5 % (36.0-66.0); PLATELET COUNT, AUTOMATED 320 10^3/uL (150-450); WHITE BLOOD COUNT 8.2 10^3/uL (4.0-10.0)
[2021-01-21 01:13] LABS: ALBUMIN 3.7 GM/DL (3.2-5.2); ALT/SGPT 99 U/L (12-78); BILIRUBIN,DIRECT 0.1 MG/DL (0.0-0.2); BILIRUBIN,TOTAL 0.3 MG/DL (0.2-1.0); BLOOD UREA NITROGEN 11 MG/DL (7-18); CALCIUM LEVEL 9.6 MG/DL (8.5-10.1); CARBON DIOXIDE LEVEL 22 MEQ/L (21-32); CHLORIDE LEVEL 105 MEQ/L (98-107); CREATININE FOR GFR 0.66 MG/DL (0.55-1.30); GLOMERULAR FILTRATION RATE > 60.0 (>51); GLUCOSE, FASTING 129 MG/DL (70-100); LIPASE 77 U/L (73-393); POTASSIUM SERUM 4.1 MEQ/L (3.5-5.1); SODIUM LEVEL 140 MEQ/L (136-145); TOTAL PROTEIN 7.4 GM/DL (6.4-8.2)
[2021-01-21] MEDS ORDERED: PROM12.56 PO (03:34)
[2021-01-21 03:46] VITALS: BP 158/96
== END 2021-01-21 03:37 | disposition home or self-care (01) ==
LOC: M ED 22:00
DX: R11.2 Nausea with vomiting, unspecified (principal); E11.9 Type 2 diabetes mellitus without complications; I10 Essential (primary) hypertension; K44.9 Diaphragmatic hernia without obstruction or gangrene; Z87.891 Personal history of nicotine dependence; Z79.82 Long term (current) use of aspirin; Z79.84 Long term (current) use of oral hypoglycemic drugs; Z79.899 Other long term (current) drug therapy; Z88.0 Allergy status to penicillin; Z88.1 Allergy status to other antibiotic agents

== ENCOUNTER → 2021-02-15 | Outpatient (CLI) | payer OTHER ==
[~2021-02-15] MED LIST changes: +PROM12.56 PO
[2021-02-15 11:29] LABS: BASO # 0.1 10^3/uL (0.0-0.2); BASO % 0.5 % (0.0-1.0); EOS # 0.3 10^3/uL (0.0-0.5); EOS % 2.4 % (0.0-3.0); HEMATOCRIT 46.6 % (36.0-47.0); HEMOGLOBIN 14.7 g/dl (12.0-15.5); LYMPH % 28.7 % (24.0-44.0); MEAN CORPUSCULAR HEMOGLOBIN 29.4 pg (27.0-33.0); MEAN CORPUSCULAR HGB CONC 31.5 g/dl (32.0-36.5); MEAN CORPUSCULAR VOLUME 93.2 fl (80.0-96.0); MONO # 0.6 10^3/uL (0.0-0.8); MONO % 5.3 % (2.0-8.0); NEUTROPHILS # 6.6 10^3/uL (1.5-8.5); NEUTROPHILS % 62.6 % (36.0-66.0); PLATELET COUNT, AUTOMATED 425 10^3/uL (150-450); WHITE BLOOD COUNT 10.6 10^3/uL (4.0-10.0)
--- NOTE | 2021-02-15 11:30 | REP ---
INDICATION: ADULT MEDICAL EXAM W ABNORMAL FINDINGS/ LABS FIRST COMPARISON: 10/06/2018 TECHNIQUE: PA and lateral. FINDINGS: The mediastinum and cardiac silhouette are normal. The lung ames are clear and without acute consolidation, effusion, or pneumothorax. The skeletal structures are intact and normal. IMPRESSION: No acute cardiopulmonary process. <Electronically signed by Cristofer Jean > 02/15/21 [id number]
[2021-02-15 12:05] LABS: ALBUMIN 3.8 GM/DL (3.2-5.2); ALT/SGPT 114 U/L (12-78); BILIRUBIN,TOTAL 0.4 MG/DL (0.2-1.0); BLOOD UREA NITROGEN 12 MG/DL (7-18); CALCIUM LEVEL 9.7 MG/DL (8.5-10.1); CARBON DIOXIDE LEVEL 26 MEQ/L (21-32); CHLORIDE LEVEL 99 MEQ/L (98-107); CHOLESTEROL LEVEL 238 MG/DL (<200); CREATININE FOR GFR 1.02 MG/DL (0.55-1.30); GLOMERULAR FILTRATION RATE > 60.0 (>51); GLUCOSE, FASTING 150 MG/DL (70-100); HDL CHOLESTEROL 68 MG/DL (>40); LDL CHOLESTEROL 134 MG/DL (<100); NON-HDL-C 170 MG/DL; POTASSIUM SERUM 4.5 MEQ/L (3.5-5.1); SODIUM LEVEL 134 MEQ/L (136-145); TOTAL PROTEIN 7.4 GM/DL (6.4-8.2); TRIGLYCERIDES LEVEL 178 MG/DL (<150)
[2021-02-15 14:49] LABS: HEMOGLOBIN A1c 6.8 %
== END ==
LOC: M LAB 10:59
PROVIDERS: ATTEND Nurse Practitioner Family
DX: Z00.01 Encounter for general adult medical examination with abnormal findings (principal); J44.9 Chronic obstructive pulmonary disease, unspecified

== ENCOUNTER → 2021-02-27 | Outpatient (CLI) | payer OTHER ==
--- NOTE | 2021-02-27 16:57 | REP ---
INDICATION: L HEEL PAIN COMPARISON: 05/04/2019. TECHNIQUE: Two views left calcaneus. FINDINGS: There is no evidence of acute fracture, dislocation, or intrinsic bone disease. IMPRESSION: No fracture or dislocation. <Electronically signed by Hoang Santiago > 02/27/21 [id number]
--- NOTE | 2021-02-27 17:03 | REP ---
INDICATION: L HEEL PAIN COMPARISON: 05/04/2019. TECHNIQUE: Four views left foot. FINDINGS: There is no evidence of acute fracture, dislocation, or intrinsic bone disease.Joint spaces are unremarkable. There is a small calcaneal spur posteriorly. IMPRESSION: No fracture or dislocation. Small posterior calcaneal spur. <Electronically signed by Hoang Santiago > 02/27/21 [id number]
== END ==
LOC: M RAD 16:02
PROVIDERS: ATTEND Physician Assistant Medical
DX: M25.572 Pain in left ankle and joints of left foot (principal)

== ENCOUNTER → 2021-04-17 | Outpatient (CLI) | payer OTHER ==
[~2021-04-17] MED LIST changes: +SEMA3TAB PO
== END ==
LOC: M LABSMTC 10:13
PROVIDERS: ATTEND Anesthesiology
DX: Z01.812 Encounter for preprocedural laboratory examination (principal); Z20.822 Contact with and (suspected) exposure to COVID-19

== ENCOUNTER 2021-05-05 13:16 | Emergency (ER) | payer OTHER ==
[~2021-05-05] VITALS: Ht 152.4 cm; Wt 87.6 kg
[~2021-05-05 13:16] MED LIST changes: -QUET50TA3 PO; +QUET50TA4 PO
[2021-05-05 17:59] VITALS: BP 141/65
== END 2021-05-05 18:01 | disposition home or self-care (01) ==
LOC: M ED 13:16
DX: M65.231 Calcific tendinitis, right forearm (principal); E78.00 Pure hypercholesterolemia, unspecified; I10 Essential (primary) hypertension; J45.909 Unspecified asthma, uncomplicated; Z87.01 Personal history of pneumonia (recurrent); K21.9 Gastro-esophageal reflux disease without esophagitis; K44.9 Diaphragmatic hernia without obstruction or gangrene; M54.9 Dorsalgia, unspecified; M54.2 Cervicalgia; E11.9 Type 2 diabetes mellitus without complications; F41.9 Anxiety disorder, unspecified; F32.9 Major depressive disorder, single episode, unspecified; Z79.82 Long term (current) use of aspirin; Z79.84 Long term (current) use of oral hypoglycemic drugs; Z79.899 Other long term (current) drug therapy; Z88.0 Allergy status to penicillin; Z88.1 Allergy status to other antibiotic agents

== ENCOUNTER → 2021-06-20 | Outpatient (CLI) | payer OTHER ==
[2021-06-20 12:18] LABS: BASO % 0.5 % (0.0-1.0); EOS # 0.2 10^3/uL (0.0-0.5); EOS % 2.5 % (0.0-3.0); HEMATOCRIT 46.1 % (36.0-47.0); HEMOGLOBIN 14.7 g/dl (12.0-15.5); LYMPH # 2.6 10^3/uL (1.5-5.0); LYMPH % 34.1 % (24.0-44.0); MEAN CORPUSCULAR HEMOGLOBIN 29.3 pg (27.0-33.0); MEAN CORPUSCULAR HGB CONC 31.9 g/dl (32.0-36.5); MEAN CORPUSCULAR VOLUME 91.8 fl (80.0-96.0); MONO # 0.5 10^3/uL (0.0-0.8); MONO % 6.7 % (2.0-8.0); NEUTROPHILS # 4.3 10^3/uL (1.5-8.5); NEUTROPHILS % 56.1 % (36.0-66.0); PLATELET COUNT, AUTOMATED 383 10^3/uL (150-450); RED BLOOD COUNT 5.02 10^6/uL (4.00-5.40); WHITE BLOOD COUNT 7.7 10^3/uL (4.0-10.0)
[2021-06-20 12:39] LABS: HEMOGLOBIN A1c 6.3 %
[2021-06-20 12:57] LABS: ALBUMIN 3.6 GM/DL (3.2-5.2); ALT/SGPT 103 U/L (12-78); BILIRUBIN,TOTAL 0.2 MG/DL (0.2-1.0); BLOOD UREA NITROGEN 10 MG/DL (7-18); CALCIUM LEVEL 9.3 MG/DL (8.5-10.1); CARBON DIOXIDE LEVEL 28 MEQ/L (21-32); CHLORIDE LEVEL 106 MEQ/L (98-107); CHOLESTEROL LEVEL 248 MG/DL (<200); CREATININE FOR GFR 0.65 MG/DL (0.55-1.30); GLOMERULAR FILTRATION RATE > 60.0 (>51); GLUCOSE, FASTING 98 MG/DL (70-100); HDL CHOLESTEROL 62 MG/DL (>40); LDL CHOLESTEROL 145 MG/DL (<100); NON-HDL-C 186 MG/DL; POTASSIUM SERUM 4.5 MEQ/L (3.5-5.1); SODIUM LEVEL 138 MEQ/L (136-145); TOTAL PROTEIN 7.1 GM/DL (6.4-8.2); TRIGLYCERIDES LEVEL 207 MG/DL (<150)
== END ==
LOC: M LAB 11:50
PROVIDERS: ATTEND Nurse Practitioner Family
DX: Z00.01 Encounter for general adult medical examination with abnormal findings (principal)

== ENCOUNTER → 2021-12-15 | Outpatient (CLI) | payer OTHER ==
[~2021-12-15] MED LIST changes: +FEXO-117 PO; -FEXO180T58 PO; -FLUC100T; +FLUC100T3; +FLUO-96 PO; -FLUO10CA16 PO; +FLUO10CA18 PO; -FLUO20CA20 PO; -SEMA3TAB PO; +SEMA3TAB4 PO
== END ==
LOC: M EKG 10:32
PROVIDERS: ATTEND Nurse Practitioner Psychiatric/Mental Health
DX: F90.0 Attention-deficit hyperactivity disorder, predominantly inattentive type (principal)

== ENCOUNTER → 2021-12-15 | Outpatient (CLI) | payer OTHER ==
[2021-12-15 12:11] LABS: BASO % 0.4 % (0.0-1.0); EOS # 0.2 10^3/uL (0.0-0.5); EOS % 1.7 % (0.0-3.0); HEMATOCRIT 45.6 % (36.0-47.0); HEMOGLOBIN 15.2 g/dl (12.0-15.5); LYMPH # 2.3 10^3/uL (1.5-5.0); MEAN CORPUSCULAR HEMOGLOBIN 30.1 pg (27.0-33.0); MEAN CORPUSCULAR HGB CONC 33.3 g/dl (32.0-36.5); MEAN CORPUSCULAR VOLUME 90.3 fl (80.0-96.0); MONO # 0.5 10^3/uL (0.0-0.8); MONO % 5.3 % (2.0-8.0); NEUTROPHILS # 6.1 10^3/uL (1.5-8.5); NEUTROPHILS % 67.4 % (36.0-66.0); PLATELET COUNT, AUTOMATED 352 10^3/uL (150-450); RED BLOOD COUNT 5.05 10^6/uL (4.00-5.40)
[2021-12-15 12:44] LABS: HEMOGLOBIN A1c 11.9 %
[2021-12-15 13:04] LABS: ALBUMIN 3.8 GM/DL (3.2-5.2); ALT/SGPT 46 U/L (12-78); BILIRUBIN,TOTAL 1.1 MG/DL (0.2-1.0); BLOOD UREA NITROGEN 11 MG/DL (7-18); CALCIUM LEVEL 9.1 MG/DL (8.5-10.1); CARBON DIOXIDE LEVEL 29 MEQ/L (21-32); CHLORIDE LEVEL 100 MEQ/L (98-107); CHOLESTEROL LEVEL 176 MG/DL (<200); CHOLESTEROL RISK RATIO 3.826 (<5); CREATININE FOR GFR 0.79 MG/DL (0.55-1.30); GLOMERULAR FILTRATION RATE > 60.0 (>51); GLUCOSE, FASTING 346 MG/DL (70-100); HDL CHOLESTEROL 46 MG/DL (>40); LDL CHOLESTEROL 79 MG/DL (<100); NON-HDL-C 130 MG/DL; POTASSIUM SERUM 4.4 MEQ/L (3.5-5.1); SODIUM LEVEL 135 MEQ/L (136-145); THYROID STIMULATING HORMONE 0.784 uIU/ML (0.358-3.740); TOTAL PROTEIN 6.9 GM/DL (6.4-8.2); TRIGLYCERIDES LEVEL 256 MG/DL (<150)
== END ==
LOC: M LAB 10:27
PROVIDERS: ATTEND Nurse Practitioner Family
DX: Z00.01 Encounter for general adult medical examination with abnormal findings (principal); E11.65 Type 2 diabetes mellitus with hyperglycemia; Z79.899 Other long term (current) drug therapy; E78.00 Pure hypercholesterolemia, unspecified

== ENCOUNTER → 2022-02-09 | Outpatient (CLI) | payer OTHER ==
[2022-02-09 15:55] LABS: BLOOD UREA NITROGEN 14 MG/DL (7-18); CALCIUM LEVEL 10.8 MG/DL (8.5-10.1); CARBON DIOXIDE LEVEL 26 MEQ/L (21-32); CHLORIDE LEVEL 101 MEQ/L (98-107); CREATININE FOR GFR 0.81 MG/DL (0.55-1.30); GLOMERULAR FILTRATION RATE > 60.0 (>51); GLUCOSE, FASTING 203 MG/DL (70-100); POTASSIUM SERUM 4.3 MEQ/L (3.5-5.1); SODIUM LEVEL 138 MEQ/L (136-145)
[2022-02-09 16:07] LABS: CREATININE, URINE 55.5 MG/DL; MALB URINE SIEMENS 11.5 MG/L; MAU/CREAT RATIO 20.7 MCG/MG (0.0-30.0)
== END ==
LOC: M PLALAB 13:33
PROVIDERS: ATTEND Nurse Practitioner Family
DX: E11.65 Type 2 diabetes mellitus with hyperglycemia (principal)

== ENCOUNTER 2022-04-03 11:07 | Emergency (ER) | payer OTHER ==
[~2022-04-03] VITALS: Ht 152.4 cm; Wt 74.3 kg
[~2022-04-03 11:07] MED LIST changes: +ALBU2.5V10 INH; +ALBU2.5V10 NEB; -ALBU83IN INH; -ALBU83IN NEB
[2022-04-03 11:10] VITALS: BP 111/69
[2022-04-03] MEDS ORDERED: METH-1164 PO (16:56)
[2022-04-03] MEDS ORDERED: KETO10TAB PO (16:56)
== END 2022-04-03 17:02 | disposition home or self-care (01) ==
LOC: M ED 11:07
DX: S46.912A Strain of unspecified muscle, fascia and tendon at shoulder and upper arm level, left arm, initial encounter (principal); Y92.89 Other specified places as the place of occurrence of the external cause; M50.30 Other cervical disc degeneration, unspecified cervical region; Z79.82 Long term (current) use of aspirin; Z79.84 Long term (current) use of oral hypoglycemic drugs; Z79.899 Other long term (current) drug therapy; Z88.0 Allergy status to penicillin; Z88.1 Allergy status to other antibiotic agents

== ENCOUNTER → 2022-04-18 | Outpatient (CLI) | payer OTHER ==
[~2022-04-18] MED LIST changes: +METH-1164 PO
[2022-04-18 11:47] LABS: BASO # 0.1 10^3/uL (0.0-0.2); BASO % 0.6 % (0.0-1.0); EOS # 0.7 10^3/uL (0.0-0.5); EOS % 7.9 % (0.0-3.0); HEMATOCRIT 42.8 % (36.0-47.0); HEMOGLOBIN 13.7 g/dl (12.0-15.5); LYMPH # 2.8 10^3/uL (1.5-5.0); LYMPH % 31.3 % (24.0-44.0); MEAN CORPUSCULAR HEMOGLOBIN 31.1 pg (27.0-33.0); MEAN CORPUSCULAR VOLUME 97.1 fl (80.0-96.0); MONO # 0.6 10^3/uL (0.0-0.8); MONO % 7.1 % (2.0-8.0); NEUTROPHILS # 4.7 10^3/uL (1.5-8.5); NEUTROPHILS % 52.8 % (36.0-66.0); PLATELET COUNT, AUTOMATED 464 10^3/uL (150-450); RED BLOOD COUNT 4.41 10^6/uL (4.00-5.40); WHITE BLOOD COUNT 8.9 10^3/uL (4.0-10.0)
[2022-04-18 13:21] LABS: ALBUMIN 3.4 GM/DL (3.2-5.2); ALT/SGPT 35 U/L (12-78); BILIRUBIN,TOTAL 0.3 MG/DL (0.2-1.0); BLOOD UREA NITROGEN 13 MG/DL (7-18); CALCIUM LEVEL 9.6 MG/DL (8.5-10.1); CARBON DIOXIDE LEVEL 28 MEQ/L (21-32); CHLORIDE LEVEL 105 MEQ/L (98-107); CHOLESTEROL LEVEL 175 MG/DL (<200); CHOLESTEROL RISK RATIO 2.966 (<5); CREATININE FOR GFR 0.71 MG/DL (0.55-1.30); GLOMERULAR FILTRATION RATE > 60.0 (>51); GLUCOSE, FASTING 104 MG/DL (70-100); HDL CHOLESTEROL 59 MG/DL (>40); LDL CHOLESTEROL 87 MG/DL (<100); NON-HDL-C 116 MG/DL; POTASSIUM SERUM 4.8 MEQ/L (3.5-5.1); SODIUM LEVEL 138 MEQ/L (136-145); THYROID STIMULATING HORMONE 0.749 uIU/ML (0.358-3.740); TOTAL PROTEIN 6.8 GM/DL (6.4-8.2); TRIGLYCERIDES LEVEL 147 MG/DL (<150)
[2022-04-18 13:48] LABS: HEMOGLOBIN A1c 8.4 %
== END ==
LOC: M LAB 10:41
PROVIDERS: ATTEND Nurse Practitioner Family
DX: Z00.01 Encounter for general adult medical examination with abnormal findings (principal); E11.65 Type 2 diabetes mellitus with hyperglycemia; I10 Essential (primary) hypertension; E78.00 Pure hypercholesterolemia, unspecified; Z13.29 Encounter for screening for other suspected endocrine disorder

== ENCOUNTER 2022-06-01 10:48 | Emergency (ER) | payer OTHER ==
[~2022-06-01] VITALS: Ht 152.4 cm; Wt 77.7 kg
[~2022-06-01 10:48] MED LIST changes: -ASMA220A INH; +LEVO1TAB40 PO; -LEVO750T13 PO; +MOME220A INH; +NYST-13; +NYST-13 TOP; -NYST10CR; -NYST10CR TOP
[2022-06-01] MEDS ORDERED: SFHHYD1CR TOP (16:06)
[2022-06-01] MEDS ORDERED: DIFL150T PO (16:06)
[2022-06-01] MEDS ORDERED: METH-1164 PO (16:06)
[2022-06-01 16:13] VITALS: BP 124/78
== END 2022-06-01 16:30 | disposition home or self-care (01) ==
LOC: M ED 10:48
DX: S20.96XA Insect bite (nonvenomous) of unspecified parts of thorax, initial encounter (principal); L29.2 Pruritus vulvae; M54.2 Cervicalgia; E11.9 Type 2 diabetes mellitus without complications; Z79.51 Long term (current) use of inhaled steroids; Z79.899 Other long term (current) drug therapy; Z79.82 Long term (current) use of aspirin; Z88.8 Allergy status to other drugs, medicaments and biological substances

== ENCOUNTER → 2022-06-21 | Outpatient (CLI) | payer OTHER ==
[~2022-06-21] MED LIST changes: +DIFL150T PO; +SFHHYD1CR TOP
[2022-06-21 17:24] LABS: BASO # 0.1 10^3/uL (0.0-0.2); BASO % 0.5 % (0.0-1.0); EOS # 0.4 10^3/uL (0.0-0.5); EOS % 3.8 % (0.0-3.0); HEMATOCRIT 43.4 % (36.0-47.0); HEMOGLOBIN 13.6 g/dl (12.0-15.5); LYMPH % 37.7 % (24.0-44.0); MEAN CORPUSCULAR HEMOGLOBIN 30.2 pg (27.0-33.0); MEAN CORPUSCULAR HGB CONC 31.3 g/dl (32.0-36.5); MEAN CORPUSCULAR VOLUME 96.4 fl (80.0-96.0); MONO # 0.7 10^3/uL (0.0-0.8); MONO % 6.7 % (2.0-8.0); NEUTROPHILS # 5.4 10^3/uL (1.5-8.5); PLATELET COUNT, AUTOMATED 457 10^3/uL (150-450); WHITE BLOOD COUNT 10.6 10^3/uL (4.0-10.0)
[2022-06-21 18:04] LABS: C REACTIVE PROTEIN QUANTITATIV 0.36 MG/DL (0.00-0.30); RHEUMATOID FACTOR QUANT < 10.0 IU/ML (<15.0)
[2022-06-21 18:08] LABS: ERYTHROCYTE SEDIMENTATION RATE 12 mm/hr (0-30)
== END ==
LOC: M PLALAB 14:35
PROVIDERS: ATTEND Physician Assistant
DX: M47.892 Other spondylosis, cervical region (principal)

== ENCOUNTER → 2022-07-09 | Outpatient (CLI) | payer OTHER | LOC: M LAB 10:41 | PROVIDERS: ATTEND Physician Assistant | DX: M47.892 Other spondylosis, cervical region (principal) ==

== ENCOUNTER 2022-07-26 19:03 | Emergency (ER) | payer OTHER ==
[~2022-07-26] VITALS: Ht 152.4 cm; Wt 82.1 kg
[2022-07-26] MEDS ORDERED: PIOG1TAB36 PO (19:19)
[2022-07-26] MEDS ORDERED: ATOM25CA2 PO (19:19)
[2022-07-26] MEDS ORDERED: STRA80CA PO (19:19)
[2022-07-26] MEDS ORDERED: PIOG1TAB37 PO (19:19)
[2022-07-26 22:49] LABS: BASO # 0.1 10^3/uL (0.0-0.2); BASO % 0.6 % (0.0-1.0); EOS # 0.3 10^3/uL (0.0-0.5); EOS % 2.9 % (0.0-3.0); HEMATOCRIT 44.9 % (36.0-47.0); HEMOGLOBIN 14.3 g/dl (12.0-15.5); LYMPH # 3.9 10^3/uL (1.5-5.0); LYMPH % 37.2 % (24.0-44.0); MEAN CORPUSCULAR HEMOGLOBIN 30.5 pg (27.0-33.0); MEAN CORPUSCULAR HGB CONC 31.8 g/dl (32.0-36.5); MEAN CORPUSCULAR VOLUME 95.7 fl (80.0-96.0); MONO # 0.7 10^3/uL (0.0-0.8); MONO % 6.5 % (2.0-8.0); NEUTROPHILS # 5.5 10^3/uL (1.5-8.5); NEUTROPHILS % 52.4 % (36.0-66.0); PLATELET COUNT, AUTOMATED 482 10^3/uL (150-450); RED BLOOD COUNT 4.69 10^6/uL (4.00-5.40); WHITE BLOOD COUNT 10.5 10^3/uL (4.0-10.0)
[2022-07-26 23:31] LABS: BLOOD UREA NITROGEN 17 MG/DL (7-18); CALCIUM LEVEL 9.4 MG/DL (8.5-10.1); CARBON DIOXIDE LEVEL 30 MEQ/L (21-32); CHLORIDE LEVEL 104 MEQ/L (98-107); CK-MB VALUE MASS < 1.0 NG/ML (<3.6); CPK CREATINE PHOSPHOKINASE 72 U/L (26-192); CREATININE FOR GFR 0.77 MG/DL (0.55-1.30); FREE T4 0.96 NG/DL (0.76-1.46); GLOMERULAR FILTRATION RATE > 60.0 (>51); GLUCOSE, FASTING 112 MG/DL (70-100); MB/CK RELATIVE INDEX 1.39 (< OR =4); NT-PRO BNP 96 PG/ML (<125); POTASSIUM SERUM 4.4 MEQ/L (3.5-5.1); SODIUM LEVEL 137 MEQ/L (136-145)
[2022-07-27 00:34] VITALS: BP 133/84
[2022-07-27] MEDS ORDERED: HOLTER MONITOR XX (00:37)
[2022-07-27] MEDS ORDERED: HOLTER MONITOR ×2 (14:11→14:13)
== END 2022-07-27 00:50 | disposition home or self-care (01) ==
LOC: M ED 19:03
DX: R00.2 Palpitations (principal); R00.0 Tachycardia, unspecified; E11.9 Type 2 diabetes mellitus without complications; J45.909 Unspecified asthma, uncomplicated; Z88.0 Allergy status to penicillin; Z88.1 Allergy status to other antibiotic agents; Z79.899 Other long term (current) drug therapy; Z79.84 Long term (current) use of oral hypoglycemic drugs; Z79.51 Long term (current) use of inhaled steroids

== ENCOUNTER → 2022-07-30 | Outpatient (CLI) | payer OTHER ==
[~2022-07-30] MED LIST changes: +ATOM25CA2 PO; +HOLTER MONITOR; +HOLTER MONITOR XX; +PIOG1TAB36 PO; +PIOG1TAB37 PO; +STRA80CA PO
== END ==
LOC: M EKG 10:52
PROVIDERS: ATTEND Emergency Medicine
DX: R00.2 Palpitations (principal)

== ENCOUNTER → 2022-08-27 | Outpatient (CLI) | payer OTHER | LOC: M PAIN 13:00 | PROVIDERS: ATTEND Nurse Practitioner Family | DX: M54.2 Cervicalgia (principal); M79.10 Myalgia, unspecified site; G89.29 Other chronic pain; E11.9 Type 2 diabetes mellitus without complications; J45.909 Unspecified asthma, uncomplicated; Z87.891 Personal history of nicotine dependence; Z88.0 Allergy status to penicillin; Z88.1 Allergy status to other antibiotic agents; Z88.8 Allergy status to other drugs, medicaments and biological substances; Z79.84 Long term (current) use of oral hypoglycemic drugs; Z79.899 Other long term (current) drug therapy ==

== ENCOUNTER → 2022-11-09 | Outpatient (REF) | payer OTHER ==
[~2022-11-09] MED LIST changes: +BENZ200C70 PO; +MOXI400T11 PO
== END ==
LOC: M LAB REF 16:07
PROVIDERS: ATTEND Nurse Practitioner Family
DX: R30.0 Dysuria (principal)

== ENCOUNTER 2022-11-10 10:32 | Emergency (ER) | payer OTHER ==
[~2022-11-10] VITALS: Ht 152.4 cm; Wt 86.9 kg
[~2022-11-10 10:32] MED LIST changes: -BENZ200C70 PO; -MOXI400T11 PO
[2022-11-10] MEDS ORDERED: ALBUTEROL SULFATE 2.5MG/0.5ML INH NEB SOLN INH ONE (11:55)
[2022-11-10] MEDS ORDERED: IPRATROPIUM 0.5MG/ALBUTEROL 2.5MG INH SOL UD 3ML (DUONEB) NEB ONE (11:55)
[2022-11-10] MEDS ORDERED: methylPREDNISolone 125MG 2ML VIAL IV ONE (11:55)
[2022-11-10 12:10] LABS: VENOUS BASE EXCESS -0.8 (-2.0-2.0); VENOUS HCO3 23.3 MEQ/L (23.0-27.0); VENOUS O2 SATURATION 96.8 % (60.0-80.0); VENOUS PARTIAL PRESSURE CO2 36.8 mmHg (38.0-50.0); VENOUS PARTIAL PRESSURE O2 87.2 mmHg (30.0-50.0); VENOUS STANDARD HCO3 23.8 MEQ/L; VENOUS TOTAL CO2 24.5 MEQ/L (24.0-28.0)
[2022-11-10 12:14] LABS: BASO % 0.3 % (0.0-1.0); EOS # 0.1 10^3/uL (0.0-0.5); EOS % 0.8 % (0.0-3.0); HEMATOCRIT 37.3 % (36.0-47.0); HEMOGLOBIN 11.9 g/dl (12.0-15.5); LYMPH # 1.6 10^3/uL (1.5-5.0); LYMPH % 11.2 % (24.0-44.0); MEAN CORPUSCULAR HEMOGLOBIN 30.2 pg (27.0-33.0); MEAN CORPUSCULAR HGB CONC 31.9 g/dl (32.0-36.5); MEAN CORPUSCULAR VOLUME 94.7 fl (80.0-96.0); MONO # 1.1 10^3/uL (0.0-0.8); MONO % 7.4 % (2.0-8.0); NEUTROPHILS # 11.4 10^3/uL (1.5-8.5); NEUTROPHILS % 79.9 % (36.0-66.0); PLATELET COUNT, AUTOMATED 346 10^3/uL (150-450); RED BLOOD COUNT 3.94 10^6/uL (4.00-5.40); WHITE BLOOD COUNT 14.3 10^3/uL (4.0-10.0)
[2022-11-10 12:40] LABS: CPK CREATINE PHOSPHOKINASE 79 U/L (34-145)
[2022-11-10 12:48] LABS: RSV AMPLIFICATION NEGATIVE (NEGATIVE)
[2022-11-10] MEDS ORDERED: ISOVUE-370 76% 100ML VIAL As Ordered ONE (12:52)
[2022-11-10 13:11] LABS: ALKALINE PHOSPHATASE 118 U/L (46-116); ALT/SGPT 49 U/L (7.0-40); AST/SGOT 30 U/L (<34); BILIRUBIN,DIRECT 0.2 MG/DL (<0.4); BILIRUBIN,TOTAL 0.7 MG/DL (0.3-1.2); CK-MB VALUE MASS < 1.0 NG/ML (<3.6); MB/CK RELATIVE INDEX 1.26 (< OR =4); THYROID STIMULATING HORMONE 0.846 uIU/ML (0.55-4.78); THYROXINE (T4) 7.5 UG/DL (4.5-10.9); TOTAL PROTEIN 6.2 G/DL (5.7-8.2)
[2022-11-10 14:00] VITALS: BP 108/56
[2022-11-10] MEDS ORDERED: PRED20TA PO ×2 (14:17→14:24)
[2022-11-10] MEDS ORDERED: MOXI400T11 PO ×2 (14:17→14:24)
[2022-11-10] MEDS ORDERED: BENZ200C70 PO ×2 (14:21→14:24)
[2022-11-10] MEDS ORDERED: MOXIFLOXACIN 400 MG TAB PO ONE (14:30)
== END 2022-11-10 14:46 | disposition home or self-care (01) ==
LOC: M ED 10:32
DX: J45.901 Unspecified asthma with (acute) exacerbation (principal); J18.9 Pneumonia, unspecified organism; E11.9 Type 2 diabetes mellitus without complications; I10 Essential (primary) hypertension; E78.5 Hyperlipidemia, unspecified; Z88.0 Allergy status to penicillin; Z88.1 Allergy status to other antibiotic agents; Z79.899 Other long term (current) drug therapy
CPT/HCPCS: 71045; 71275; 80047; 80076; 82550; 82553; 82803; 83605; 83880; 84436; 84443; 85025; 87040; 87428; 87631; 93005; 93041; 94640; 94760; 96374; 99284; J2930

== ENCOUNTER → 2022-11-26 | Outpatient (CLI) | payer OTHER ==
[~2022-11-26] MED LIST changes: -ASMA16.7; +BENZ200C70 PO; +MOME13HF4; +MOXI400T11 PO
== END ==
LOC: M PAIN 14:45
PROVIDERS: ATTEND Nurse Practitioner Family
DX: M54.2 Cervicalgia (principal); M79.12 Myalgia of auxiliary muscles, head and neck; J45.909 Unspecified asthma, uncomplicated; E55.9 Vitamin D deficiency, unspecified; M47.812 Spondylosis without myelopathy or radiculopathy, cervical region; L30.9 Dermatitis, unspecified; Z87.891 Personal history of nicotine dependence; Z79.84 Long term (current) use of oral hypoglycemic drugs; Z79.899 Other long term (current) drug therapy; Z88.0 Allergy status to penicillin; Z88.1 Allergy status to other antibiotic agents; Z88.8 Allergy status to other drugs, medicaments and biological substances

== ENCOUNTER → 2022-12-10 | Outpatient (CLI) | payer OTHER | LOC: M RAD 12:58 | PROVIDERS: ATTEND Nurse Practitioner Family | DX: Z87.891 Personal history of nicotine dependence (principal) ==

== ENCOUNTER → 2023-01-04 | Outpatient (REF) | payer OTHER ==
[2023-01-04 19:26] LABS: HEPATITIS B SURFACE ANTIGEN NEGATIVE (NEGATIVE)
[2023-01-06 07:07] LABS: HEPATITIS B CORE ANTIBODY IGG Negative (Negative)
== END ==
LOC: M LAB REF 16:32
PROVIDERS: ATTEND Pediatrics
DX: Z20.5 Contact with and (suspected) exposure to viral hepatitis (principal)

== ENCOUNTER → 2023-03-04 | Outpatient (REF) | payer OTHER ==
[2023-03-04 17:58] LABS: CREATININE, URINE 68.5 MG/DL
[2023-03-04 17:59] LABS: MALB URINE SIEMENS < 3.0 MG/L; MAU/CREAT RATIO 4.3 MCG/MG (0.0-30.0)
[2023-03-04 18:01] LABS: ALBUMIN 3.7 G/DL (3.2-5.2); ALKALINE PHOSPHATASE 107 U/L (46-116); ALT/SGPT 32 U/L (7.0-40); AST/SGOT 12 U/L (<34); BILIRUBIN,TOTAL 0.3 MG/DL (0.3-1.2); BLOOD UREA NITROGEN 21 MG/DL (9-23); CALCIUM LEVEL 8.8 MG/DL (8.5-10.1); CARBON DIOXIDE LEVEL 25 MMOL/L (20-31); CHLORIDE LEVEL 102 MMOL/L (98-107); CHOLESTEROL LEVEL 207 MG/DL (<200); CHOLESTEROL RISK RATIO 3.07 (<5); CREATININE FOR GFR 0.69 MG/DL (0.55-1.30); GLOMERULAR FILTRATION RATE > 60.0 (>51); GLUCOSE, FASTING 124 MG/DL (60-100); HDL CHOLESTEROL 67.3 MG/DL (>40); LDL CHOLESTEROL 76.9 MG/DL (<100); NON-HDL-C 139.7 MG/DL; POTASSIUM SERUM 4.7 MMOL/L (3.5-5.1); SODIUM LEVEL 134 MMOL/L (136-145); THYROID STIMULATING HORMONE 1.354 uIU/ML (0.55-4.78); TOTAL PROTEIN 6.6 G/DL (5.7-8.2); TRIGLYCERIDES LEVEL 314 MG/DL (<150)
== END ==
LOC: M LAB REF 16:08
PROVIDERS: ATTEND Pediatrics
DX: E11.9 Type 2 diabetes mellitus without complications (principal); E78.5 Hyperlipidemia, unspecified

== ENCOUNTER → 2023-03-15 | Outpatient (REF) | LOC: M PLAIMG 12:25 | PROVIDERS: ATTEND Internal Medicine | DX: Z11.52 Encounter for screening for COVID-19 (principal) ==

== ENCOUNTER → 2023-03-22 | Outpatient (REF) | payer OTHER | LOC: M LAB REF 12:11 | PROVIDERS: ATTEND Pediatrics | DX: L30.9 Dermatitis, unspecified (principal) ==

== ENCOUNTER 2023-03-27 10:32 | Emergency (ER) | payer OTHER ==
[~2023-03-27] VITALS: Ht 152.4 cm; Wt 89.2 kg
[2023-03-27 13:35] LABS: HEMATOCRIT 43.2 % (36.0-47.0); HEMOGLOBIN 13.6 g/dl (12.0-15.5); MEAN CORPUSCULAR HEMOGLOBIN 29.1 pg (27.0-33.0); MEAN CORPUSCULAR HGB CONC 31.5 g/dl (32.0-36.5); MEAN CORPUSCULAR VOLUME 92.3 fl (80.0-96.0); PLATELET COUNT, AUTOMATED 380 10^3/uL (150-450); RED BLOOD COUNT 4.68 10^6/uL (4.00-5.40); WHITE BLOOD COUNT 8.8 10^3/uL (4.0-10.0)
[2023-03-27 14:01] LABS: BLOOD UREA NITROGEN 14 MG/DL (9-23); CARBON DIOXIDE LEVEL 28 MMOL/L (20-31); CHLORIDE LEVEL 104 MMOL/L (98-107); CREATININE FOR GFR 0.68 MG/DL (0.55-1.30); GLOMERULAR FILTRATION RATE > 60.0 (>51); GLUCOSE, FASTING 113 MG/DL (60-100); POTASSIUM SERUM 4.2 MMOL/L (3.5-5.1); SODIUM LEVEL 138 MMOL/L (136-145)
[2023-03-27] MEDS ORDERED: PRED20TA PO (14:28)
[2023-03-27] MEDS ORDERED: predniSONE 20 MG TAB PO ONE (14:30)
[2023-03-27 15:03] VITALS: BP 110/55; TEMP 97.5; O2SAT 98
== END 2023-03-27 15:19 | disposition home or self-care (01) ==
LOC: M ED 10:32
DX: R22.43 Localized swelling, mass and lump, lower limb, bilateral (principal); E11.9 Type 2 diabetes mellitus without complications; I10 Essential (primary) hypertension; E78.5 Hyperlipidemia, unspecified; J44.9 Chronic obstructive pulmonary disease, unspecified; F32.A Depression, unspecified; F41.9 Anxiety disorder, unspecified; Z88.0 Allergy status to penicillin; Z88.1 Allergy status to other antibiotic agents; Z79.899 Other long term (current) drug therapy; Z79.51 Long term (current) use of inhaled steroids; Z79.82 Long term (current) use of aspirin; Z79.52 Long term (current) use of systemic steroids
CPT/HCPCS: 36415; 80048; 83880; 85027; 93970; 99284; J7512

== ENCOUNTER → 2023-05-22 | Outpatient (CLI) | payer OTHER | LOC: M WHC 12:15 | PROVIDERS: ATTEND Pediatrics | DX: M85.80 Other specified disorders of bone density and structure, unspecified site (principal) ==

== ENCOUNTER 2023-07-04 10:23 | Emergency (ER) | payer OTHER ==
[~2023-07-04] VITALS: Ht 152.4 cm; Wt 89.0 kg
[2023-07-04] MEDS ORDERED: BENZ200C70 PO (13:49)
[2023-07-04] MEDS ORDERED: FAMO20TA PO (13:49)
[2023-07-04] MEDS ORDERED: ALBU2.5V10 NEB (13:52)
[2023-07-04] MEDS ORDERED: FAMOTIDINE 20 MG TAB PO ONE (14:00)
[2023-07-04 14:12] VITALS: BP 134/76; TEMP 98; O2SAT 98
== END 2023-07-04 14:14 | disposition home or self-care (01) ==
LOC: M ED 10:23
DX: R05.9 Cough, unspecified (principal); K21.9 Gastro-esophageal reflux disease without esophagitis; I10 Essential (primary) hypertension; J44.9 Chronic obstructive pulmonary disease, unspecified; F41.9 Anxiety disorder, unspecified; F32.A Depression, unspecified; Z87.891 Personal history of nicotine dependence; Z79.899 Other long term (current) drug therapy; Z88.0 Allergy status to penicillin; Z88.1 Allergy status to other antibiotic agents; Z88.8 Allergy status to other drugs, medicaments and biological substances; Z91.013 Allergy to seafood

== ENCOUNTER → 2023-07-17 | Outpatient (REF) | payer OTHER ==
[~2023-07-17] MED LIST changes: +FAMO20TA PO
[2023-07-17 13:41] LABS: BASO % 0.4 % (0.0-1.0); EOS # 0.1 10^3/uL (0.0-0.5); EOS % 1.4 % (0.0-3.0); HEMATOCRIT 43.9 % (36.0-47.0); HEMOGLOBIN 13.7 g/dl (12.0-15.5); LYMPH # 1.9 10^3/uL (1.5-5.0); MEAN CORPUSCULAR HEMOGLOBIN 29.7 pg (27.0-33.0); MEAN CORPUSCULAR HGB CONC 31.2 g/dl (32.0-36.5); MEAN CORPUSCULAR VOLUME 95.2 fl (80.0-96.0); MONO # 0.4 10^3/uL (0.0-0.8); MONO % 5.6 % (2.0-8.0); NEUTROPHILS # 5.2 10^3/uL (1.5-8.5); NEUTROPHILS % 67.2 % (36.0-66.0); PLATELET COUNT, AUTOMATED 432 10^3/uL (150-450); RED BLOOD COUNT 4.61 10^6/uL (4.00-5.40); WHITE BLOOD COUNT 7.7 10^3/uL (4.0-10.0)
[2023-07-17 14:06] LABS: THYROID STIMULATING HORMONE 1.348 uIU/ML (0.55-4.78)
[2023-07-17 14:07] LABS: ERYTHROCYTE SEDIMENTATION RATE 48 mm/hr (0-30)
[2023-07-17 14:09] LABS: ALBUMIN 3.6 G/DL (3.2-5.2); ALKALINE PHOSPHATASE 107 U/L (46-116); ALT/SGPT 38 U/L (7.0-40); AST/SGOT 19 U/L (<34); BILIRUBIN,TOTAL 0.5 MG/DL (0.3-1.2); BLOOD UREA NITROGEN 12 MG/DL (9-23); CALCIUM LEVEL 9.1 MG/DL (8.5-10.1); CARBON DIOXIDE LEVEL 27 MMOL/L (20-31); CHLORIDE LEVEL 103 MMOL/L (98-107); CHOLESTEROL LEVEL 197 MG/DL (<200); CHOLESTEROL RISK RATIO 3.25 (<5); CREATININE FOR GFR 0.64 MG/DL (0.55-1.30); GLOMERULAR FILTRATION RATE > 60.0 (>51); GLUCOSE, FASTING 164 MG/DL (60-100); HDL CHOLESTEROL 60.5 MG/DL (>40); LDL CHOLESTEROL 99.9 MG/DL (<100); NON-HDL-C 136.5 MG/DL; POTASSIUM SERUM 4.6 MMOL/L (3.5-5.1); SODIUM LEVEL 139 MMOL/L (136-145); TOTAL 25(OH) VITAMIN D 24.7 NG/ML (20.0-100.0); TOTAL PROTEIN 6.9 G/DL (5.7-8.2); TRIGLYCERIDES LEVEL 183 MG/DL (<150)
[2023-07-17 14:24] LABS: RHEUMATOID FACTOR QUANT < 3.5 IU/ML (<14)
== END ==
LOC: M LAB REF 12:32
PROVIDERS: ATTEND Nurse Practitioner Family
DX: M19.90 Unspecified osteoarthritis, unspecified site (principal); Z13.228 Encounter for screening for other metabolic disorders

== ENCOUNTER 2023-08-23 09:57 | Emergency (ER) | payer OTHER ==
[~2023-08-23] VITALS: Ht 152.4 cm; Wt 90.7 kg
[2023-08-23] MEDS ORDERED: predniSONE 20 MG TAB PO ONE (12:10)
[2023-08-23] MEDS ORDERED: BENA25CA4 PO (12:16)
[2023-08-23] MEDS ORDERED: KETO2SHA8 TOP (12:16)
[2023-08-23] MEDS ORDERED: BACT800T5 PO (12:16)
[2023-08-23] MEDS ORDERED: PRED20TA PO (12:16)
[2023-08-23 12:18] VITALS: BP 163/78; TEMP 98.3; O2SAT 98
== END 2023-08-23 12:25 | disposition home or self-care (01) ==
LOC: M ED 09:57
DX: L25.3 Unspecified contact dermatitis due to other chemical products (principal); L08.9 Local infection of the skin and subcutaneous tissue, unspecified; S00.412A Abrasion of left ear, initial encounter; X58.XXXA Exposure to other specified factors, initial encounter; E11.9 Type 2 diabetes mellitus without complications; I10 Essential (primary) hypertension; E78.5 Hyperlipidemia, unspecified; K21.9 Gastro-esophageal reflux disease without esophagitis; J44.9 Chronic obstructive pulmonary disease, unspecified; Z88.0 Allergy status to penicillin; Z88.1 Allergy status to other antibiotic agents; Z88.8 Allergy status to other drugs, medicaments and biological substances
CPT/HCPCS: 99283; J7512

== ENCOUNTER 2023-10-28 10:34 | Emergency (ER) | payer OTHER ==
[~2023-10-28 10:34] MED LIST changes: +BACT800T5 PO; +BENA25CA4 PO; +KETO2SHA8 TOP
[2023-10-28 10:36] VITALS: BP 131/65; TEMP 98.5; O2SAT 98
[2023-10-28 12:05] LABS: BASO % 0.3 % (0.0-1.0); EOS # 0.3 10^3/uL (0.0-0.5); EOS % 3.1 % (0.0-3.0); HEMATOCRIT 44.1 % (36.0-47.0); HEMOGLOBIN 14.1 g/dl (12.0-15.5); LYMPH # 2.9 10^3/uL (1.5-5.0); LYMPH % 30.4 % (24.0-44.0); MEAN CORPUSCULAR HEMOGLOBIN 29.8 pg (27.0-33.0); MEAN CORPUSCULAR VOLUME 93.2 fl (80.0-96.0); MONO # 0.6 10^3/uL (0.0-0.8); MONO % 6.6 % (2.0-8.0); NEUTROPHILS # 5.6 10^3/uL (1.5-8.5); NEUTROPHILS % 59.3 % (36.0-66.0); PLATELET COUNT, AUTOMATED 433 10^3/uL (150-450); RED BLOOD COUNT 4.73 10^6/uL (4.00-5.40); WHITE BLOOD COUNT 9.5 10^3/uL (4.0-10.0)
[2023-10-28 12:28] LABS: BLOOD UREA NITROGEN 14 MG/DL (9-23); CALCIUM LEVEL 9.3 MG/DL (8.5-10.1); CARBON DIOXIDE LEVEL 24 MMOL/L (20-31); CHLORIDE LEVEL 105 MMOL/L (98-107); CREATININE FOR GFR 0.61 MG/DL (0.55-1.30); GLOMERULAR FILTRATION RATE > 60.0 (>51); GLUCOSE, FASTING 115 MG/DL (60-100); POTASSIUM SERUM 4.4 MMOL/L (3.5-5.1); SODIUM LEVEL 136 MMOL/L (136-145)
[2023-10-28] MEDS: predniSONE 20 MG TAB PO ONE (12:40)
[2023-10-28] MEDS: IPRATROPIUM 0.5MG/ALBUTEROL 2.5MG INH SOL UD 3ML (DUONEB) NEB SCH (12:41)
[2023-10-28] MEDS ORDERED: NEBU1EAC78 MC (13:50)
[2023-10-28] MEDS ORDERED: PRED20TA PO (13:50)
[2023-10-28] MEDS ORDERED: IPRA0.00 INH (13:50)
== END 2023-10-28 14:02 | disposition home or self-care (01) ==
LOC: M ED 10:34
DX: J45.901 Unspecified asthma with (acute) exacerbation (principal); S16.1XXA Strain of muscle, fascia and tendon at neck level, initial encounter; K21.9 Gastro-esophageal reflux disease without esophagitis; Y92.9 Unspecified place or not applicable; Y93.9 Activity, unspecified; Y99.9 Unspecified external cause status; Z88.0 Allergy status to penicillin; Z88.1 Allergy status to other antibiotic agents; Z88.8 Allergy status to other drugs, medicaments and biological substances; Z91.013 Allergy to seafood; Z79.51 Long term (current) use of inhaled steroids; Z79.899 Other long term (current) drug therapy; Z79.84 Long term (current) use of oral hypoglycemic drugs; Z79.52 Long term (current) use of systemic steroids
CPT/HCPCS: 36415; 71046; 80048; 85025; 87486; 87581; 87633; 87798; 99283; J7512

== ENCOUNTER 2023-10-31 09:17 | Emergency (ER) | payer OTHER ==
[~2023-10-31] VITALS: Ht 152.4 cm; Wt 90.3 kg
[~2023-10-31 09:17] MED LIST changes: +IPRA0.00 INH; +NEBU1EAC78 MC
[2023-10-31] MEDS: IPRATROPIUM 0.5MG/ALBUTEROL 2.5MG INH SOL UD 3ML (DUONEB) NEB PRN (11:53)
[2023-10-31 11:55] LABS: BASO % 0.3 % (0.0-1.0); EOS % 0.1 % (0.0-3.0); HEMATOCRIT 41.6 % (36.0-47.0); HEMOGLOBIN 13.6 g/dl (12.0-15.5); LYMPH # 1.3 10^3/uL (1.5-5.0); LYMPH % 13.2 % (24.0-44.0); MEAN CORPUSCULAR HGB CONC 32.7 g/dl (32.0-36.5); MEAN CORPUSCULAR VOLUME 91.8 fl (80.0-96.0); MONO # 0.3 10^3/uL (0.0-0.8); MONO % 2.5 % (2.0-8.0); NEUTROPHILS # 8.4 10^3/uL (1.5-8.5); NEUTROPHILS % 83.4 % (36.0-66.0); PLATELET COUNT, AUTOMATED 421 10^3/uL (150-450); RED BLOOD COUNT 4.53 10^6/uL (4.00-5.40); WHITE BLOOD COUNT 10.1 10^3/uL (4.0-10.0)
[2023-10-31 12:16] LABS: CK-MB VALUE MASS 1.6 NG/ML (<3.6)
[2023-10-31 12:19] LABS: ALBUMIN 3.8 G/DL (3.2-5.2); ALKALINE PHOSPHATASE 84 U/L (46-116); ALT/SGPT 51 U/L (7.0-40); AST/SGOT 22 U/L (<34); BILIRUBIN,DIRECT 0.1 MG/DL (<0.4); BILIRUBIN,TOTAL 0.5 MG/DL (0.3-1.2); BLOOD UREA NITROGEN 15 MG/DL (9-23); CALCIUM LEVEL 9.1 MG/DL (8.5-10.1); CARBON DIOXIDE LEVEL 27 MMOL/L (20-31); CHLORIDE LEVEL 102 MMOL/L (98-107); CREATININE FOR GFR 0.59 MG/DL (0.55-1.30); GLOMERULAR FILTRATION RATE > 60.0 (>51); GLUCOSE, FASTING 222 MG/DL (60-100); POTASSIUM SERUM 4.7 MMOL/L (3.5-5.1); SODIUM LEVEL 136 MMOL/L (136-145)
[2023-10-31 12:22] LABS: THYROID STIMULATING HORMONE 0.411 uIU/ML (0.55-4.78)
[2023-10-31 12:25] LABS: CPK CREATINE PHOSPHOKINASE 256 U/L (34-145); MB/CK RELATIVE INDEX 0.62 (< OR =4)
[2023-10-31] MEDS ORDERED: ISOVUE-370 76% 100ML VIAL As Ordered ONE (12:31)
[2023-10-31 15:17] LABS: FREE T4 1.27 NG/DL (0.89-1.76)
[2023-10-31 15:29] VITALS: BP 152/70; TEMP 97.9; O2SAT 97
== END 2023-10-31 15:53 | disposition home or self-care (01) ==
LOC: M ED 09:17
DX: R06.02 Shortness of breath (principal); E11.9 Type 2 diabetes mellitus without complications; I10 Essential (primary) hypertension; J45.909 Unspecified asthma, uncomplicated; Z87.891 Personal history of nicotine dependence; Z79.84 Long term (current) use of oral hypoglycemic drugs; Z79.899 Other long term (current) drug therapy; Z88.0 Allergy status to penicillin; Z88.1 Allergy status to other antibiotic agents; Z88.8 Allergy status to other drugs, medicaments and biological substances; Z91.013 Allergy to seafood
CPT/HCPCS: 71275; 80048; 80076; 82550; 82553; 83880; 84439; 84443; 85025; 93005; 93041; 94640; 94760; 99284; Q9967

== ENCOUNTER → 2023-11-06 | Outpatient (CLI) | payer OTHER | LOC: M PAIN 14:30 | PROVIDERS: ATTEND Anesthesiology | DX: M54.2 Cervicalgia (principal); M47.812 Spondylosis without myelopathy or radiculopathy, cervical region; J45.909 Unspecified asthma, uncomplicated; L30.9 Dermatitis, unspecified; E55.9 Vitamin D deficiency, unspecified; Z87.891 Personal history of nicotine dependence; Z79.84 Long term (current) use of oral hypoglycemic drugs; Z79.899 Other long term (current) drug therapy; Z88.0 Allergy status to penicillin; Z88.1 Allergy status to other antibiotic agents; Z88.8 Allergy status to other drugs, medicaments and biological substances ==

== ENCOUNTER → 2023-12-02 | Outpatient (REF) | payer OTHER | LOC: M LAB REF 17:50 | PROVIDERS: ATTEND Nurse Practitioner Family | DX: M19.90 Unspecified osteoarthritis, unspecified site (principal) ==

== ENCOUNTER 2023-12-17 10:48 | Emergency (ER) | payer OTHER ==
[~2023-12-17] VITALS: Ht 152.4 cm; Wt 90.0 kg
[2023-12-17 13:18] VITALS: BP 142/90; TEMP 97.8; O2SAT 98
== END 2023-12-17 13:21 | disposition home or self-care (01) ==
LOC: M ED 10:48
DX: M79.642 Pain in left hand (principal); M19.041 Primary osteoarthritis, right hand; M19.042 Primary osteoarthritis, left hand; E11.9 Type 2 diabetes mellitus without complications; M54.2 Cervicalgia; Z79.52 Long term (current) use of systemic steroids; Z79.811 Long term (current) use of aromatase inhibitors; Z79.4 Long term (current) use of insulin; Z79.899 Other long term (current) drug therapy; Z88.0 Allergy status to penicillin; Z88.1 Allergy status to other antibiotic agents; Z88.8 Allergy status to other drugs, medicaments and biological substances; Z91.018 Allergy to other foods

== ENCOUNTER 2023-12-24 12:07 | Emergency (ER) | payer OTHER ==
[~2023-12-24] VITALS: Ht 152.4 cm; Wt 90.4 kg
[2023-12-24 14:35] LABS: BASO # 0.1 10^3/uL (0.0-0.2); BASO % 0.6 % (0.0-1.0); EOS # 0.2 10^3/uL (0.0-0.5); EOS % 2.2 % (0.0-3.0); HEMATOCRIT 45.3 % (36.0-47.0); HEMOGLOBIN 14.2 g/dl (12.0-15.5); LYMPH % 31.2 % (24.0-44.0); MEAN CORPUSCULAR HEMOGLOBIN 29.8 pg (27.0-33.0); MEAN CORPUSCULAR HGB CONC 31.3 g/dl (32.0-36.5); MONO # 0.6 10^3/uL (0.0-0.8); MONO % 6.2 % (2.0-8.0); NEUTROPHILS # 5.6 10^3/uL (1.5-8.5); NEUTROPHILS % 59.6 % (36.0-66.0); PLATELET COUNT, AUTOMATED 435 10^3/uL (150-450); RED BLOOD COUNT 4.77 10^6/uL (4.00-5.40); WHITE BLOOD COUNT 9.5 10^3/uL (4.0-10.0)
[2023-12-24 15:03] LABS: LIPASE 36 U/L (12-53)
[2023-12-24 15:05] LABS: ALBUMIN 3.7 G/DL (3.2-5.2); ALKALINE PHOSPHATASE 84 U/L (46-116); ALT/SGPT 42 U/L (7.0-40); AST/SGOT 17 U/L (<34); BILIRUBIN,DIRECT 0.1 MG/DL (<0.4); BILIRUBIN,TOTAL 0.4 MG/DL (0.3-1.2); BLOOD UREA NITROGEN 12 MG/DL (9-23); CALCIUM LEVEL 9.7 MG/DL (8.5-10.1); CARBON DIOXIDE LEVEL 30 MMOL/L (20-31); CHLORIDE LEVEL 103 MMOL/L (98-107); CK-MB VALUE MASS < 1.0 NG/ML (<3.6); CPK CREATINE PHOSPHOKINASE 56 U/L (34-145); CREATININE FOR GFR 0.72 MG/DL (0.55-1.30); GLOMERULAR FILTRATION RATE > 60.0 (>51); GLUCOSE, FASTING 141 MG/DL (60-100); MB/CK RELATIVE INDEX 1.78 (< OR =4); POTASSIUM SERUM 4.3 MMOL/L (3.5-5.1); SODIUM LEVEL 137 MMOL/L (136-145); TOTAL PROTEIN 6.9 G/DL (5.7-8.2)
[2023-12-24 16:16] VITALS: BP 174/86; TEMP 98.1; O2SAT 97
[2023-12-24 18:34] LABS: APPEARANCE, URINE HAZY (CLEAR); BACTERIA, URINE AUTO NEGATIVE (NEGATIVE); BILIRUBIN, URINE AUTO NEGATIVE (NEGATIVE); BLOOD, URINE BLOOD NEGATIVE (NEGATIVE); COLOR, URINE YELLOW (YELLOW); GLUCOSE, URINE (UA) AUTO 3+ mg/dL (NEGATIVE); KETONE, URINE AUTO TRACE mg/dL (NEGATIVE); LEUKOCYTE ESTERASE, URINE AUTO 2+ (NEGATIVE); MUCUS, URINE SMALL (NEGATIVE); NITRITE, URINE AUTO NEGATIVE (NEGATIVE); PROTEIN, URINE AUTO 1+ mg/dL (NEGATIVE); RBC, URINE AUTO 3 /HPF (0-3); SPECIFIC GRAVITY URINE AUTO 1.025 (1.002-1.035); SQUAMOUS EPITHELIAL CELL UR AU 2 /HPF (0-6); UROBILINOGEN, URINE AUTO 0.2 mg/dL (0.0-2.0); WBC, URINE AUTO 16 /HPF (0-3)
[2023-12-24] MEDS ORDERED: LASI20TA3 PO (18:53)
== END 2023-12-24 19:15 | disposition home or self-care (01) ==
LOC: M ED 12:07
DX: R60.9 Edema, unspecified (principal); Z88.0 Allergy status to penicillin; Z88.1 Allergy status to other antibiotic agents; Z88.8 Allergy status to other drugs, medicaments and biological substances; Z91.013 Allergy to seafood; Z79.51 Long term (current) use of inhaled steroids; Z79.84 Long term (current) use of oral hypoglycemic drugs; Z79.899 Other long term (current) drug therapy

== ENCOUNTER → 2024-02-04 | Outpatient (CLI) | payer OTHER ==
[~2024-02-04] MED LIST changes: +FLUO-290 PO; -FLUO10CA18 PO; +LASI20TA3 PO
== END ==
LOC: M WHC 11:36
PROVIDERS: ATTEND Nurse Practitioner Family
DX: R92.8 Other abnormal and inconclusive findings on diagnostic imaging of breast (principal)

== ENCOUNTER 2024-03-02 09:32 | Emergency (ER) | payer OTHER ==
[~2024-03-02] VITALS: Ht 152.4 cm; Wt 88.5 kg
[2024-03-02 09:33] VITALS: BP 122/78; TEMP 96.3; O2SAT 96
== END 2024-03-02 13:51 | disposition home or self-care (01) ==
LOC: M ED 09:32
DX: M50.10 Cervical disc disorder with radiculopathy, unspecified cervical region (principal); M51.16 Intervertebral disc disorders with radiculopathy, lumbar region; E11.9 Type 2 diabetes mellitus without complications; I10 Essential (primary) hypertension; E78.5 Hyperlipidemia, unspecified; K21.9 Gastro-esophageal reflux disease without esophagitis; J44.9 Chronic obstructive pulmonary disease, unspecified; J45.909 Unspecified asthma, uncomplicated; Z87.891 Personal history of nicotine dependence; Z88.0 Allergy status to penicillin; Z88.1 Allergy status to other antibiotic agents; Z88.8 Allergy status to other drugs, medicaments and biological substances; Z91.013 Allergy to seafood; Z79.51 Long term (current) use of inhaled steroids; Z79.84 Long term (current) use of oral hypoglycemic drugs; Z79.52 Long term (current) use of systemic steroids; Z79.899 Other long term (current) drug therapy

== ENCOUNTER → 2024-03-04 | Outpatient (REF) | payer OTHER ==
[2024-03-04 17:44] LABS: BASO % 0.5 % (0.0-1.0); EOS # 0.2 10^3/uL (0.0-0.5); EOS % 2.1 % (0.0-3.0); HEMATOCRIT 41.6 % (36.0-47.0); LYMPH # 2.3 10^3/uL (1.5-5.0); LYMPH % 31.1 % (24.0-44.0); MEAN CORPUSCULAR HEMOGLOBIN 29.5 pg (27.0-33.0); MEAN CORPUSCULAR HGB CONC 31.3 g/dl (32.0-36.5); MEAN CORPUSCULAR VOLUME 94.3 fl (80.0-96.0); MONO # 0.5 10^3/uL (0.0-0.8); MONO % 7.1 % (2.0-8.0); NEUTROPHILS # 4.3 10^3/uL (1.5-8.5); NEUTROPHILS % 59.1 % (36.0-66.0); PLATELET COUNT, AUTOMATED 409 10^3/uL (150-450); RED BLOOD COUNT 4.41 10^6/uL (4.00-5.40); WHITE BLOOD COUNT 7.3 10^3/uL (4.0-10.0)
[2024-03-04 18:08] LABS: ALBUMIN 3.9 G/DL (3.2-5.2); ALKALINE PHOSPHATASE 100 U/L (46-116); ALT/SGPT 37 U/L (7.0-40); AST/SGOT 13 U/L (<34); BILIRUBIN,TOTAL 0.4 MG/DL (0.3-1.2); BLOOD UREA NITROGEN 18 MG/DL (9-23); CALCIUM LEVEL 9.7 MG/DL (8.5-10.1); CARBON DIOXIDE LEVEL 29 MMOL/L (20-31); CHLORIDE LEVEL 106 MMOL/L (98-107); CHOLESTEROL LEVEL 162 MG/DL (<200); CHOLESTEROL RISK RATIO 2.36 (<5); CREATININE FOR GFR 0.83 MG/DL (0.55-1.30); GLOMERULAR FILTRATION RATE > 60.0 (>51); GLUCOSE, FASTING 140 MG/DL (60-100); HDL CHOLESTEROL 68.4 MG/DL (>40); LDL CHOLESTEROL 69.6 MG/DL (<100); MAGNESIUM LEVEL 1.9 MG/DL (1.8-2.4); NON-HDL-C 93.6 MG/DL; POTASSIUM SERUM 4.9 MMOL/L (3.5-5.1); SODIUM LEVEL 140 MMOL/L (136-145); TOTAL PROTEIN 6.7 G/DL (5.7-8.2); TRIGLYCERIDES LEVEL 120 MG/DL (<150)
[2024-03-04 18:09] LABS: THYROID STIMULATING HORMONE 0.925 uIU/ML (0.55-4.78)
[2024-03-04 18:41] LABS: HEMOGLOBIN A1c 7.1 % (4.0-6.0)
== END ==
LOC: M LAB REF 16:26
PROVIDERS: ATTEND Nurse Practitioner Family
DX: E66.9 Obesity, unspecified (principal)

== ENCOUNTER 2024-05-06 09:17 | Emergency (ER) | payer OTHER ==
[~2024-05-06] VITALS: Ht 152.4 cm; Wt 92.1 kg
[2024-05-06] MEDS ORDERED: MEDR4PAK PO (12:02)
[2024-05-06 12:11] VITALS: BP 133/72; TEMP 97.2; O2SAT 96
== END 2024-05-06 12:13 | disposition home or self-care (01) ==
LOC: M ED 09:17
DX: S16.1XXA Strain of muscle, fascia and tendon at neck level, initial encounter (principal); X50.0XXA Overexertion from strenuous movement or load, initial encounter; Y92.9 Unspecified place or not applicable; Y93.89 Activity, other specified; Y99.9 Unspecified external cause status; Z88.0 Allergy status to penicillin; Z88.1 Allergy status to other antibiotic agents; Z88.8 Allergy status to other drugs, medicaments and biological substances; Z91.013 Allergy to seafood; Z79.52 Long term (current) use of systemic steroids; Z79.811 Long term (current) use of aromatase inhibitors; Z79.4 Long term (current) use of insulin; Z79.899 Other long term (current) drug therapy; I10 Essential (primary) hypertension; E78.5 Hyperlipidemia, unspecified; J45.909 Unspecified asthma, uncomplicated; K21.9 Gastro-esophageal reflux disease without esophagitis; E11.9 Type 2 diabetes mellitus without complications; M54.50 Low back pain, unspecified; F41.9 Anxiety disorder, unspecified

== ENCOUNTER 2024-05-21 07:07 | Emergency (ER) | payer OTHER ==
[~2024-05-21] VITALS: Ht 152.4 cm; Wt 89.2 kg
[2024-05-21] MEDS: IBUPROFEN 800 MG TAB PO ONE (08:46)
[2024-05-21 08:50] VITALS: BP 134/90; TEMP 97.4; O2SAT 99
[2024-05-21] MEDS ORDERED: IBUP80TA PO (08:56)
== END 2024-05-21 09:03 | disposition home or self-care (01) ==
LOC: M ED 07:07
DX: M25.571 Pain in right ankle and joints of right foot (principal); I10 Essential (primary) hypertension; E78.5 Hyperlipidemia, unspecified; J44.9 Chronic obstructive pulmonary disease, unspecified; J45.909 Unspecified asthma, uncomplicated; K21.9 Gastro-esophageal reflux disease without esophagitis; Z88.0 Allergy status to penicillin; Z88.1 Allergy status to other antibiotic agents; Z88.8 Allergy status to other drugs, medicaments and biological substances; Z91.013 Allergy to seafood; Z79.51 Long term (current) use of inhaled steroids; Z79.1 Long term (current) use of non-steroidal anti-inflammatories (NSAID); Z79.84 Long term (current) use of oral hypoglycemic drugs; Z79.899 Other long term (current) drug therapy

== ENCOUNTER 2024-06-25 09:14 | Emergency (ER) | payer OTHER ==
[~2024-06-25] VITALS: Ht 152.4 cm; Wt 88.7 kg
[2024-06-25 09:17] VITALS: BP 134/91; TEMP 97.4; O2SAT 100
[2024-06-25] MEDS ORDERED: LOTR1CRE12 TOP (11:00)
[2024-06-25] MEDS ORDERED: INDO50CA91 PO (11:00)
== END 2024-06-25 11:10 | disposition home or self-care (01) ==
LOC: M ED 09:14
DX: M25.571 Pain in right ankle and joints of right foot (principal); Z88.0 Allergy status to penicillin; Z88.1 Allergy status to other antibiotic agents; Z88.8 Allergy status to other drugs, medicaments and biological substances; Z91.013 Allergy to seafood; Z79.51 Long term (current) use of inhaled steroids; Z79.84 Long term (current) use of oral hypoglycemic drugs; Z79.899 Other long term (current) drug therapy

== ENCOUNTER → 2024-07-07 | Outpatient (REF) | payer OTHER ==
[~2024-07-07] MED LIST changes: +INDO50CA91 PO; +LOTR1CRE12 TOP
[2024-07-07 19:24] LABS: ALBUMIN 3.7 G/DL (3.2-5.2); ALKALINE PHOSPHATASE 100 U/L (46-116); ALT/SGPT 32 U/L (7.0-40); AST/SGOT 15 U/L (<34); BILIRUBIN,TOTAL 0.3 MG/DL (0.3-1.2); BLOOD UREA NITROGEN 11 MG/DL (9-23); CALCIUM LEVEL 9.7 MG/DL (8.5-10.1); CARBON DIOXIDE LEVEL 26 MMOL/L (20-31); CHLORIDE LEVEL 104 MMOL/L (98-107); GLOMERULAR FILTRATION RATE > 60.0 (>51); GLUCOSE, FASTING 202 MG/DL (60-100); HEMOGLOBIN A1c 9.6 % (4.0-6.0); POTASSIUM SERUM 4.3 MMOL/L (3.5-5.1); SODIUM LEVEL 135 MMOL/L (136-145); TOTAL PROTEIN 6.7 G/DL (5.7-8.2)
== END ==
LOC: M LAB REF 18:26
PROVIDERS: ATTEND Nurse Practitioner Family
DX: E11.9 Type 2 diabetes mellitus without complications (principal)

== ENCOUNTER 2024-07-15 10:26 | Emergency (ER) | payer OTHER ==
[~2024-07-15] VITALS: Ht 152.4 cm; Wt 87.5 kg
[2024-07-15 13:11] VITALS: BP 122/57; TEMP 97.2; O2SAT 98
== END 2024-07-15 13:46 | disposition home or self-care (01) ==
LOC: M ED 10:26
DX: S52.134A Nondisplaced fracture of neck of right radius, initial encounter for closed fracture (principal); Y92.410 Unspecified street and highway as the place of occurrence of the external cause; Y93.9 Activity, unspecified; Y99.9 Unspecified external cause status; I10 Essential (primary) hypertension; E11.9 Type 2 diabetes mellitus without complications; K21.9 Gastro-esophageal reflux disease without esophagitis; F41.9 Anxiety disorder, unspecified; F32.A Depression, unspecified; Z88.0 Allergy status to penicillin; Z88.1 Allergy status to other antibiotic agents; Z88.8 Allergy status to other drugs, medicaments and biological substances; Z91.013 Allergy to seafood; Z79.51 Long term (current) use of inhaled steroids; Z79.84 Long term (current) use of oral hypoglycemic drugs; Z79.899 Other long term (current) drug therapy

== ENCOUNTER → 2024-07-21 | Outpatient (CLI) | payer OTHER | LOC: M RAD 13:28 | PROVIDERS: ATTEND Physician Assistant Surgical | DX: S52.134A Nondisplaced fracture of neck of right radius, initial encounter for closed fracture (principal); W18.30XA Fall on same level, unspecified, initial encounter; Y92.009 Unspecified place in unspecified non-institutional (private) residence as the place of occurrence of the external cause ==

== ENCOUNTER 2024-10-02 09:07 | Emergency (ER) | payer OTHER ==
[~2024-10-02] VITALS: Ht 152.4 cm; Wt 88.8 kg
[~2024-10-02 09:07] MED LIST changes: -CYCL5TAB PO; +CYCL5TAB4 PO; -FEXO-117 PO; +FEXO-193 PO; +NYST1POW3 TOP; -NYST1POW9 TOP
[2024-10-02 14:37] VITALS: BP 139/81
[2024-10-02] MEDS ORDERED: BENZ200C70 PO (15:18)
[2024-10-02 15:44] VITALS: TEMP 97.8; O2SAT 97
== END 2024-10-02 15:45 | disposition home or self-care (01) ==
LOC: M ED 09:07
DX: R06.02 Shortness of breath (principal); R05.9 Cough, unspecified; E11.9 Type 2 diabetes mellitus without complications; J45.909 Unspecified asthma, uncomplicated; Z88.0 Allergy status to penicillin; Z88.1 Allergy status to other antibiotic agents; Z88.8 Allergy status to other drugs, medicaments and biological substances; Z91.013 Allergy to seafood; Z79.51 Long term (current) use of inhaled steroids; Z79.84 Long term (current) use of oral hypoglycemic drugs; Z79.899 Other long term (current) drug therapy

== ENCOUNTER → 2024-10-07 | Outpatient (REF) | payer OTHER ==
[2024-10-07 15:01] LABS: HEMOGLOBIN A1c 6.9 % (4.0-6.0)
[2024-10-07 15:12] LABS: ALBUMIN 3.4 G/DL (3.2-5.2); ALKALINE PHOSPHATASE 105 U/L (35-104); ALT/SGPT 54 U/L (7.0-40); AST/SGOT 26 U/L (<34); BILIRUBIN,TOTAL 0.2 MG/DL (0.3-1.2); BLOOD UREA NITROGEN 15 MG/DL (9-23); CARBON DIOXIDE LEVEL 30 MMOL/L (20-31); CHLORIDE LEVEL 105 MMOL/L (98-107); CHOLESTEROL LEVEL 276 MG/DL (<200); CHOLESTEROL RISK RATIO 4.72 (<5); CREATININE FOR GFR 0.67 MG/DL (0.55-1.30); GLOMERULAR FILTRATION RATE > 60.0 (>51); GLUCOSE, FASTING 156 MG/DL (60-100); HDL CHOLESTEROL 58.4 MG/DL (>40); NON-HDL-C 217.6 MG/DL; POTASSIUM SERUM 4.3 MMOL/L (3.5-5.1); SODIUM LEVEL 142 MMOL/L (136-145); TOTAL PROTEIN 6.6 G/DL (5.7-8.2); TRIGLYCERIDES LEVEL 462 MG/DL (<150)
== END ==
LOC: M LAB REF 13:08
PROVIDERS: ATTEND Nurse Practitioner Family
DX: E11.9 Type 2 diabetes mellitus without complications (principal); E78.5 Hyperlipidemia, unspecified

== ENCOUNTER → 2025-01-05 | Outpatient (REF) | payer OTHER ==
[~2025-01-05] MED LIST changes: -BUPR-335 PO; +[UNRECOGNIZED DRUG - CODE] PO
== END ==
LOC: M LAB REF 17:01
PROVIDERS: ATTEND Nurse Practitioner Family
DX: J11.1 Influenza due to unidentified influenza virus with other respiratory manifestations (principal)

== ENCOUNTER 2025-01-11 09:07 | Emergency (ER) | payer OTHER ==
[~2025-01-11] VITALS: Ht 152.4 cm; Wt 89.3 kg
[2025-01-11 09:13] VITALS: BP 130/70; TEMP 97.9; O2SAT 97
[2025-01-11] MEDS ORDERED: FLUTISP (11:04)
[2025-01-11] MEDS: IPRATROPIUM 0.5MG/ALBUTEROL 2.5MG INH SOL UD 3ML NEB ONE (11:39)
[2025-01-11] MEDS ORDERED: PRED20TA PO (12:09)
== END 2025-01-11 12:15 | disposition home or self-care (01) ==
LOC: M ED 09:07
DX: J20.9 Acute bronchitis, unspecified (principal); E11.9 Type 2 diabetes mellitus without complications; I10 Essential (primary) hypertension; J45.909 Unspecified asthma, uncomplicated; E78.5 Hyperlipidemia, unspecified; K21.9 Gastro-esophageal reflux disease without esophagitis; Z88.0 Allergy status to penicillin; Z88.1 Allergy status to other antibiotic agents; Z88.8 Allergy status to other drugs, medicaments and biological substances; Z91.013 Allergy to seafood; Z79.51 Long term (current) use of inhaled steroids; Z79.52 Long term (current) use of systemic steroids; Z79.84 Long term (current) use of oral hypoglycemic drugs; Z79.899 Other long term (current) drug therapy

== ENCOUNTER → 2025-01-18 | Outpatient (REF) | payer OTHER ==
[~2025-01-18] MED LIST changes: +BUPR-500 PO; -BUPR1TAB56 PO; +BUPR200T45 PO; +FLUTISP; +KETO120S5 TOP; -KETO2SHA8 TOP; -NYST-13; -NYST-13 TOP; +NYST0.1C; +NYST0.1C TOP; -TRIA25CR TOP; +TRIA80CR15 TOP; -[UNRECOGNIZED DRUG - CODE] PO
[2025-01-18 13:31] LABS: HEMOGLOBIN A1c 7.3 % (4.0-6.0)
[2025-01-18 13:54] LABS: ALBUMIN 3.5 G/DL (3.2-5.2); ALKALINE PHOSPHATASE 98 U/L (35-104); ALT/SGPT 41 U/L (7.0-40); AST/SGOT 11 U/L (<34); BILIRUBIN,TOTAL 0.4 MG/DL (0.3-1.2); BLOOD UREA NITROGEN 11 MG/DL (9-23); CALCIUM LEVEL 9.1 MG/DL (8.5-10.1); CARBON DIOXIDE LEVEL 28 MMOL/L (20-31); CHLORIDE LEVEL 100 MMOL/L (98-107); CHOLESTEROL LEVEL 196 MG/DL (<200); CHOLESTEROL RISK RATIO 2.41 (<5); CREATININE FOR GFR 0.65 MG/DL (0.55-1.30); GLOMERULAR FILTRATION RATE > 90.0 (>51); GLUCOSE, FASTING 282 MG/DL (60-100); LDL CHOLESTEROL 79.2 MG/DL (<100); POTASSIUM SERUM 4.4 MMOL/L (3.5-5.1); SODIUM LEVEL 137 MMOL/L (136-145); TOTAL PROTEIN 6.6 G/DL (5.7-8.2); TRIGLYCERIDES LEVEL 179 MG/DL (<150)
== END ==
LOC: M LAB REF 12:21
PROVIDERS: ATTEND Nurse Practitioner Family
DX: E11.9 Type 2 diabetes mellitus without complications (principal); E78.5 Hyperlipidemia, unspecified

== ENCOUNTER 2025-02-03 09:09 | Emergency (ER) | payer OTHER ==
[~2025-02-03] VITALS: Ht 152.4 cm; Wt 86.1 kg
[~2025-02-03 09:09] MED LIST changes: +LIDO1ADH93 TD; -LIDO5DIS41 TD; +METF-1113 PO; -METF-723 PO
[2025-02-03] MEDS ORDERED: SYMB16INH INH (11:51)
[2025-02-03 11:54] VITALS: BP 133/77; O2SAT 98
[2025-02-03 11:57] VITALS: TEMP 98.1
== END 2025-02-03 12:00 | disposition home or self-care (01) ==
LOC: M ED 09:09
DX: R05.9 Cough, unspecified (principal); E11.9 Type 2 diabetes mellitus without complications; I10 Essential (primary) hypertension; J45.909 Unspecified asthma, uncomplicated; E78.5 Hyperlipidemia, unspecified; Z88.0 Allergy status to penicillin; Z88.1 Allergy status to other antibiotic agents; Z88.8 Allergy status to other drugs, medicaments and biological substances; Z91.013 Allergy to seafood; Z79.51 Long term (current) use of inhaled steroids; Z79.52 Long term (current) use of systemic steroids; Z79.84 Long term (current) use of oral hypoglycemic drugs; Z79.899 Other long term (current) drug therapy

== ENCOUNTER 2025-05-11 10:28 | Emergency (ER) | payer OTHER ==
[~2025-05-11] VITALS: Ht 152.4 cm; Wt 86.7 kg
[~2025-05-11 10:28] MED LIST changes: -METF-1113 PO; +METF-1201 PO; +SYMB16INH INH; -ZOLP5TAB PO; +ZOLP5TAB9 PO
[2025-05-11 11:26] LABS: KETONE, URINE AUTO RFX NEGATIVE (NEGATIVE); LEUKOCYTE ESTERASE UR AUTO RFX NEGATIVE (NEGATIVE); NITRITE, URINE AUTO RFX NEGATIVE (NEGATIVE); RBC, URINE AUTO RFX 13 /HPF (0-3); SQUAM EPITHELIAL CELL UR AURFX 0 /HPF (0-6); WBC, URINE AUTO RFX 0 /HPF (0-3)
[2025-05-11 11:39] LABS: BASO # 0.0 10^3/uL (0.0-0.2); BASO % 0.6 % (0.0-1.0); EOS # 0.2 10^3/uL (0.0-0.5); EOS % 2.2 % (0.0-3.0); LYMPH # 2.3 10^3/uL (1.5-5.0); LYMPH % 32.0 % (24.0-44.0); MONO # 0.6 10^3/uL (0.0-0.8); MONO % 8.0 % (2.0-8.0); NEUTROPHILS # 4.1 10^3/uL (1.5-8.5); NEUTROPHILS % 57.1 % (36.0-66.0); PLATELET COUNT, AUTOMATED 397 10^3/uL (150-450)
[2025-05-11 12:02] LABS: ALT/SGPT 30 U/L (7.0-40); AST/SGOT 20 U/L (<34); CALCIUM LEVEL 9.5 MG/DL (8.5-10.1); CARBON DIOXIDE LEVEL 27 MMOL/L (20-31); CHLORIDE LEVEL 103 MMOL/L (98-107); CREATININE FOR GFR 0.67 MG/DL (0.55-1.30); GLOMERULAR FILTRATION RATE > 90.0 (>51); POTASSIUM SERUM 4.6 MMOL/L (3.5-5.1); SODIUM LEVEL 139 MMOL/L (136-145)
[2025-05-11] MEDS ORDERED: ISOVUE-370 76% 100 ML VIAL As Ordered ONE (12:32)
[2025-05-11 13:52] VITALS: BP 171/91; TEMP 98; O2SAT 98
== END 2025-05-11 13:53 | disposition home or self-care (01) ==
LOC: M ED 12:04
DX: R10.9 Unspecified abdominal pain (principal); R19.7 Diarrhea, unspecified; E11.9 Type 2 diabetes mellitus without complications; I10 Essential (primary) hypertension; J44.9 Chronic obstructive pulmonary disease, unspecified; Z88.0 Allergy status to penicillin; Z88.1 Allergy status to other antibiotic agents; Z88.8 Allergy status to other drugs, medicaments and biological substances; Z91.013 Allergy to seafood; Z79.51 Long term (current) use of inhaled steroids; Z79.84 Long term (current) use of oral hypoglycemic drugs; Z79.52 Long term (current) use of systemic steroids; Z79.899 Other long term (current) drug therapy
CPT/HCPCS: 36415; 74177; 80053; 81001; 83605; 83690; 85025; 99284; Q9967

== ENCOUNTER → 2025-08-16 | Outpatient (REF) | payer OTHER ==
[2025-08-16 15:58] LABS: ALT/SGPT 27 U/L (7.0-40); AST/SGOT 16 U/L (<34); CALCIUM LEVEL 8.9 MG/DL (8.5-10.1); CARBON DIOXIDE LEVEL 25 MMOL/L (20-31); CHLORIDE LEVEL 103 MMOL/L (98-107); CHOLESTEROL LEVEL 208 MG/DL (<200); CHOLESTEROL RISK RATIO 3.33 (<5); CREATININE FOR GFR 0.56 MG/DL (0.55-1.30); GLOMERULAR FILTRATION RATE > 90.0 (>51); LDL CHOLESTEROL 107.3 MG/DL (<100); NON-HDL-C 145.7 MG/DL; POTASSIUM SERUM 4.5 MMOL/L (3.5-5.1); SODIUM LEVEL 140 MMOL/L (136-145); TRIGLYCERIDES LEVEL 192 MG/DL (<150)
[2025-08-16 16:06] LABS: ESTIMATED AVERAGE GLUCOSE 192.0 MG/DL (60-110)
== END ==
LOC: M LAB REF 14:05
PROVIDERS: ATTEND Student in an Organized Health Care Education/Training Program
DX: E11.9 Type 2 diabetes mellitus without complications (principal); I10 Essential (primary) hypertension

== ENCOUNTER 2025-09-02 09:18 | Emergency (ER) | payer OTHER ==
[~2025-09-02] VITALS: Ht 152.4 cm; Wt 82.6 kg
[2025-09-02 09:20] VITALS: BP 129/77; TEMP 96.9; O2SAT 97
[2025-09-02] MEDS ORDERED: JARD1TAB (09:27)
[2025-09-02] MEDS ORDERED: ATOR40TA75 (09:27)
[2025-09-02] MEDS ORDERED: CYCL5TAB4 (09:27)
[2025-09-02] MEDS ORDERED: FAMO1TAB11 (09:27)
[2025-09-02] MEDS ORDERED: IBUP200T46 PO (09:27)
[2025-09-02] MEDS: ASPIRIN 81 MG CHEWABLE TABLET PO ONE (11:31)
[2025-09-02 11:40] LABS: BASO # 0.0 10^3/uL (0.0-0.2); BASO % 0.4 % (0.0-1.0); EOS # 0.2 10^3/uL (0.0-0.5); EOS % 3.1 % (0.0-3.0); LYMPH # 2.6 10^3/uL (1.5-5.0); LYMPH % 33.8 % (24.0-44.0); MONO # 0.6 10^3/uL (0.0-0.8); MONO % 7.1 % (2.0-8.0); NEUTROPHILS # 4.3 10^3/uL (1.5-8.5); NEUTROPHILS % 55.3 % (36.0-66.0); PLATELET COUNT, AUTOMATED 449 10^3/uL (150-450)
[2025-09-02 12:12] LABS: C REACTIVE PROTEIN QUANTITATIV 0.92 MG/DL (<1.0); CK-MB VALUE MASS < 1.0 NG/ML (<3.6)
[2025-09-02 12:13] LABS: ALT/SGPT 27 U/L (7.0-40); AST/SGOT 17 U/L (<34); CALCIUM LEVEL 9.1 MG/DL (8.5-10.1); CARBON DIOXIDE LEVEL 27 MMOL/L (20-31); CHLORIDE LEVEL 102 MMOL/L (98-107); CREATININE FOR GFR 0.57 MG/DL (0.55-1.30); GLOMERULAR FILTRATION RATE > 90.0 (>51); POTASSIUM SERUM 4.6 MMOL/L (3.5-5.1); SODIUM LEVEL 138 MMOL/L (136-145)
[2025-09-02 12:16] LABS: FREE T4 1.25 NG/DL (0.89-1.76)
[2025-09-02 12:19] LABS: CPK CREATINE PHOSPHOKINASE 58 U/L (34-145)
[2025-09-02 13:49] LABS: CK-MB VALUE MASS < 1.0 NG/ML (<3.6); CPK CREATINE PHOSPHOKINASE 80 U/L (34-145)
[2025-09-02] MEDS ORDERED: TRAM50TA2 PO (14:16)
== END 2025-09-02 14:24 | disposition home or self-care (01) ==
LOC: M ED 09:18
DX: M50.30 Other cervical disc degeneration, unspecified cervical region (principal); R07.89 Other chest pain; R94.31 Abnormal electrocardiogram [ECG] [EKG]; K21.9 Gastro-esophageal reflux disease without esophagitis; J45.909 Unspecified asthma, uncomplicated; E11.9 Type 2 diabetes mellitus without complications; I10 Essential (primary) hypertension; Z88.0 Allergy status to penicillin; Z88.1 Allergy status to other antibiotic agents; Z88.8 Allergy status to other drugs, medicaments and biological substances; Z91.013 Allergy to seafood; Z79.51 Long term (current) use of inhaled steroids; Z79.1 Long term (current) use of non-steroidal anti-inflammatories (NSAID); Z79.899 Other long term (current) drug therapy